=== PATIENT | male | born 1950 | race Caucasian/White ===

== ENCOUNTER 2020-09-17 09:32 | Outpatient (REF) | payer MEDICARE, SELFPAY ==
[2020-09-17 12:14] LABS: SARS COV2 PCR INHOUSE NEGATIVE (Negative)
== END 2020-09-17 09:33 | disposition home or self-care (01) ==
LOC: HO.LAB 09:32
PROVIDERS: Visit Provider Internal Medicine
DX: Z20.822 Contact with and (suspected) exposure to COVID-19 (principal)
CPT/HCPCS: C9803; U0003

== ENCOUNTER 2022-05-11 08:58 | Outpatient (REF) | payer MEDICARE, SELFPAY | END 2022-05-11 08:59 | disposition home or self-care (01) | LOC: HO.SH 08:58 | PROVIDERS: Visit Provider Physician Assistant | DX: Z01.118 Encounter for examination of ears and hearing with other abnormal findings (principal); H90.3 Sensorineural hearing loss, bilateral | CPT/HCPCS: 92557; 92567 ==

== ENCOUNTER 2022-06-03 17:48 | Emergency (ER) | payer MEDICARE, SELFPAY ==
--- NOTE | ~2022-06-03 | XR_ITS ---
EXAMINATION: XR BILATERAL HIPS WITH AP PELVIS CLINICAL INFORMATION: Pain COMPARISON: None TECHNIQUE: AP view of the pelvis with coned frontal and frog-leg lateral views of each hip were obtained. FINDINGS: Both femoral heads are well-seated within the respected acetabula. Degenerative changes are seen with mild osteophyte formation. I do not appreciate any cortical disruption or trabecular irregularity to suggest underlying occult fracture. Mild degenerative changes seen in the pelvis and visualized lower lumbar spine. Unremarkable bowel gas pattern. Vascular calcifications seen XR/XR hip BI w PEL1V IMPRESSION: Mild degenerative changes but no acute fracture or dislocation seen.
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
--- NOTE | 2022-06-03 17:54 | ECG_ITS ---
Test Reason : FALL Blood Pressure : / mmHG Vent. Rate : 080 BPM Atrial Rate : 080 BPM P-R Int : 164 ms QRS Dur : 082 ms QT Int : 392 ms P-R-T Axes : 047 018 032 degrees QTc Int : 452 ms Normal sinus rhythm Normal ECG No previous ECGs available Referred By: Lisa Waterman Electronically Signed By:AKIN VALDOVINOS
[2022-06-03 17:57] VITALS: BP 145/85; PULSE 82; RESP 16; TEMP 36.7; O2SAT 99; BMI 25.1
[2022-06-03 18:00] VITALS: BP 152/83; PULSE 79; RESP 18; TEMP 36.9; O2SAT 96
[2022-06-03 18:19] LABS: MANUAL DIFF FLAG NO
[2022-06-03 18:26] LABS: Basophils Percent Auto 0.5 % (0-2); Eosinophils Percent Auto 0.3 % (0-4); Hematocrit 40.7 % (42.0-52.0); Hemoglobin 14.1 g/dl (14.0-18.0); Imm Gran Abs Auto 0.07 X10*3/uL (0.00-0.03); Imm Gran Pct Auto 1.2 % (0.0-0.4); Lymphocytes Absolute Auto 0.9 X10*3/uL (1.2-4.9); Lymphocytes Percent Auto 14.3 % (20-40); Mean Corpuscular HGB Conc 34.6 g/dl (31.0-36.0); Mean Corpuscular Volume 86.6 fL (80.0-98.0); Mean Platelet Volume 10.1 fL (9.4-12.4); Monocytes Absolute Auto 0.9 X10*3/uL (0.1-1.2); Monocytes Percent Auto 14.7 % (2-11); Neutrophils Absolute Auto 4.1 x10*3/uL (2.0-8.3); Platelet Count 242 X10*3/uL (160-400); White Blood Count 5.9 X10*3/uL (4.8-10.8)
[2022-06-03 18:40] LABS: Alanine Aminotransferase 26 U/L (0-40); Albumin Level 4.5 g/dL (3.5-5.0); Alkaline Phosphatase 53 U/L (39-117); Anion Gap 14 (12-20); Aspartate Amino Transferase 21 U/L (5-37); Bilirubin Total 0.8 mg/dL (0.0-1.0); Blood Urea Nitrogen 13 mg/dL (9-16); Calcium 9.7 mg/dL (8.4-10.2); Carbon Dioxide 22 mmol/L (22-29); Chloride 103 mmol/L (96-108); Creatinine Clr Calc Pharmacy 73.3; Estimated Glomerular Filt Rate > 60; Glucose Random 99 mg/dL (60-115); Potassium 4.2 mmol/L (3.3-5.1); Sodium 135 mmol/L (135-145); Total Protein 6.8 g/dL (6.5-8.0)
[2022-06-03 19:18] LABS: Influenza A PCR POSITIVE (Negative); Influenza B PCR NEGATIVE (Negative); Resp Syncy Virus RNA Qual PCR NEGATIVE (Negative); SARS COV2 PCR INHOUSE NEGATIVE (Negative)
== END 2022-06-03 20:06 | disposition home or self-care (01) ==
PROVIDERS: Physician Assistant Medical; Emergency Provider Student in an Organized Health Care Education/Training Program
DX: J11.1 Influenza due to unidentified influenza virus with other respiratory manifestations (principal); R53.1 Weakness; R10.2 Pelvic and perineal pain; Z20.822 Contact with and (suspected) exposure to COVID-19
CPT/HCPCS: 0241U; 36415; 73521; 80053; 83735; 85025; 93005; 99283; 99284

== ENCOUNTER → 2022-07-19 14:25 | Outpatient (BNVA) | payer SELFPAY | PROVIDERS: Visit Provider Internal Medicine | DX: Z02.79 Encounter for issue of other medical certificate (principal) ==

== ENCOUNTER 2022-09-30 10:51 | Emergency (ER) | payer MEDICARE, SELFPAY ==
--- NOTE | ~2022-09-30 | XR_ITS ---
EXAMINATION: XR CHEST CLINICAL INFORMATION: Chest pain COMPARISON: None available. TECHNIQUE: 2 views of the chest were obtained. FINDINGS: The cardiac and mediastinal contours are normal. The lungs are clear. No pleural effusion or pneumothorax. Degenerative changes of the spine. Evidence of previous surgery to the right shoulder. XR/XR chest 2V IMPRESSION: No evidence for acute disease in the chest.
--- NOTE | 2022-09-30 10:55 | ECG_ITS ---
Test Reason : CP Blood Pressure : / mmHG Vent. Rate : 073 BPM Atrial Rate : 073 BPM P-R Int : 156 ms QRS Dur : 078 ms QT Int : 392 ms P-R-T Axes : 034 022 061 degrees QTc Int : 431 ms Normal sinus rhythm Normal ECG When compared with ECG of 03-JUN-2022 19:29, No significant change was found Referred By: Generic ED Physician Electronically Signed By:DAYA DUBOIS MD
[2022-09-30 10:57] VITALS: BP 102/73; PULSE 74; RESP 18; TEMP 36.6; O2SAT 94; BMI 32.1
[2022-09-30 11:19] LABS: MANUAL DIFF FLAG NO
[2022-09-30 11:22] LABS: Basophils Absolute Auto 0.1 X10*3/uL (0.0-0.2); Basophils Percent Auto 0.7 % (0-2); Eosinophils Absolute Auto 0.1 X10*3/uL (0.0-0.4); Eosinophils Percent Auto 0.6 % (0-4); Hematocrit 43.6 % (42.0-52.0); Imm Gran Abs Auto 0.04 X10*3/uL (0.00-0.03); Imm Gran Pct Auto 0.5 % (0.0-0.4); Lymphocytes Absolute Auto 1.8 X10*3/uL (1.2-4.9); Lymphocytes Percent Auto 20.8 % (20-40); Mean Corpuscular HGB Conc 34.4 g/dl (31.0-36.0); Mean Corpuscular Hemoglobin 28.8 pg (27.0-33.0); Mean Corpuscular Volume 83.7 fL (80.0-98.0); Monocytes Absolute Auto 0.7 X10*3/uL (0.1-1.2); Monocytes Percent Auto 7.8 % (2-11); Neutrophils Absolute Auto 6.2 x10*3/uL (2.0-8.3); Neutrophils Percent Auto 69.6 % (45-73); Platelet Count 271 X10*3/uL (160-400); Red Blood Count 5.21 X10*6/uL (4.60-5.80); Red Cell Distribution Width 13.4 % (11.0-16.0); White Blood Count 8.9 X10*3/uL (4.8-10.8)
[2022-09-30 11:36] LABS: Anion Gap 16 (12-20); Blood Urea Nitrogen 18 mg/dL (9-16); Calcium 9.7 mg/dL (8.4-10.2); Carbon Dioxide 19 mmol/L (22-29); Chloride 110 mmol/L (96-108); Estimated Glomerular Filt Rate 46; Glucose Random 95 mg/dL (60-115); Potassium 4.9 mmol/L (3.3-5.1); Sodium 140 mmol/L (135-145)
[2022-09-30 11:46] LABS: Troponin-I High Sensitivity 3.2 ng/L (<3.5-35.0)
[2022-09-30 14:37] VITALS: BP 159/86; PULSE 72; RESP 16; O2SAT 98
[2022-09-30 15:12] LABS: Troponin-I High Sensitivity 2.8 ng/L (<3.5-35.0)
--- NOTE | 2022-09-30 15:19 | ED.CHESTPAIN ---
HPI - Chest Pain General Chief Complaint: Chest Pain Stated Complaint: Chest Pain Time Seen by Provider: 09/30/22 14:53 History of Present Illness HPI narrative: patient complains of 5 days of several episodes a day of brief shortness of breath and chest pain while he is walking to do routine tasks, pain goes away and shortness of breath goes away when he stops walking and rests, he has no chest pain or shortness of breath at rest Episodes of chest pain usually last for less than a minute, he has never felt faint and he has not passed out he has had no nausea or vomiting, he did have 1 episode that was accompanied by diaphoresis but the other episodes have had no diaphoresis No abdominal pain no nausea or vomit No leg swelling no calf pain or swelling Medical history is hypertension and high cholesterol Related Data Allergies Allergy/AdvReac Type Severity Reaction Status Date / Time No Known Allergies Allergy Verified 06/03/22 17:54 [facility] Past Medical History [facility] Narrative: Patient has history of hypertension and high cholesterol Source: nursing notes reviewed Social History Social History Advance Directives: No Advance Directives Information Provided: No Physical Exam Vital Signs: Vital Signs: Last Vital Signs Temp 98.3 F 09/30/22 17:07 Pulse 65 09/30/22 17:07 Resp 20 09/30/22 17:07 BP 171/89 H 09/30/22 17:07 Pulse Ox 99 09/30/22 17:07 O2 Del Method Room Air 09/30/22 17:07 BMI result Body Mass Index 32.1 General appearance is no distress Head is normocephalic atraumatic Neck is supple no JVD The chest is clear to auscultation bilateral full symmetric equal breath sounds Chest wall is nontender, no pain with deep breath or movement Abdomen soft nontender Extremities full range of motion x4 No pedal edema no calf tenderness or swelling Neuro no focal deficits Course Course Course Narrative: EKG was normal sinus rhythm without acute ST or ischemic changes EKG was done twice, the 2nd time was when he had walked to the bathroom and experienced a brief episode of chest pain, EKG was unchanged and was in normal sinus rhythm without evidence of acute ischemia Monitoring oxygen saturation and pulse when he did a brief exertional walk showed mild increase of pulse from 70-80 but no drop in oxygen saturation no increased respiratory rate no difficulty breathing Case was discussed with attending physician Arianne who agreed with 2- troponins and 2 normal EKGs including 1 done while he was experiencing pain that patient can go home to follow closely with cardiology I texted with c ardiologist who responded that he could follow this patient closely and would see him in the office and patient was discharged with the hospital with warnings to return if he develops any worsening chest pain and to limit exertion until cardiac evaluation is complete Medical Decision Making Lab Data MDM Lab Attestation statement: I reviewed the patient's lab results. 09/30/22 11:14 09/30/22 11:14 Labs: Lab Results 09/30/22 09/30/22 09/30/22 Range/Units 11:14 11:14 11:14 WBC 8.9 (4.8-10.8) X10*3/uL RBC 5.21 (4.60-5.80) X10*6/uL Hgb 15.0 (14.0-18.0) g/dl Hct 43.6 (42.0-52.0) % MCV 83.7 (80.0-98.0) fL MCH 28.8 (27.0-33.0) pg MCHC 34.4 (31.0-36.0) g/dl RDW 13.4 (11.0-16.0) % Plt Count 271 (160-400) X10*3/uL MPV 10.0 (9.4-12.4) fL Immature Gran % (Auto) 0.5 H (0.0-0.4) % Neut % (Auto) 69.6 (45-73) % Lymph % (Auto) 20.8 (20-40) % [place] % (Auto) 7.8 (2-11) % Eos % (Auto) 0.6 (0-4) % Baso % (Auto) 0.7 (0-2) % Lymph # (Auto) 1.8 (1.2-4.9) X10*3/uL [place] # (Auto) 0.7 (0.1-1.2) X10*3/uL Eos # (Auto) 0.1 (0.0-0.4) X10*3/uL Baso # (Auto) 0.1 (0.0-0.2) X10*3/uL Abs Immat Gran (auto) 0.04 H (0.00-0.03) X10*3/uL Absolute Neuts (auto) 6.2 (2.0-8.3) x10*3/uL Absolute Nucleated RBC 0.000 (0.0-0.012) X10*3/uL Nucleated RBC % (auto) 0.0 (0.0-0.2) /100WBC Sodium 140 (135-145) mmol/L Potassium 4.9 (3.3-5.1) mmol/L Chloride 110 H (96-108) mmol/L Carbon Dioxide 19 L (22-29) mmol/L Anion Gap 16 (12-20) BUN 18 H (9-16) mg/dL Creatinine 1.49 H (0.5-1.4) mg/dL Estim Creat Clear Calc 55.0 Estimated GFR 46 Random Glucose 95 (60-115) mg/dL Calcium 9.7 (8.4-10.2) mg/dL Troponin I High Sens 3.2 (<3.5-35.0) ng/L COVID-19 ([facility]LIE) (Negative) COVID-19 Clin Com 09/30/22 09/30/22 Range/Units 14:41 17:08 WBC (4.8-10.8) X10*3/uL RBC (4.60-5.80) X10*6/uL Hgb (14.0-18.0) g/dl Hct (42.0-52.0) % MCV (80.0-98.0) fL MCH (27.0-33.0) pg MCHC (31.0-36.0) g/dl RDW (11.0-16.0) % Plt Count (160-400) X10*3/uL MPV (9.4-12.4) fL Immature Gran % (Auto) (0.0-0.4) % Neut % (Auto) (45-73) % Lymph % (Auto) (20-40) % [place] % (Auto) (2-11) % Eos % (Auto) (0-4) % Baso % (Auto) (0-2) % Lymph # (Auto) (1.2-4.9) X10*3/uL [place] # (Auto) (0.1-1.2) X10*3/uL Eos # (Auto) (0.0-0.4) X10*3/uL Baso # (Auto) (0.0-0.2) X10*3/uL Abs Immat Gran (auto) (0.00-0.03) X10*3/uL Absolute Neuts (auto) (2.0-8.3) x10*3/uL Absolute Nucleated RBC (0.0-0.012) X10*3/uL Nucleated RBC % (auto) (0.0-0.2) /100WBC Sodium (135-145) mmol/L Potassium (3.3-5.1) mmol/L Chloride (96-108) mmol/L Carbon Dioxide (22-29) mmol/L Anion Gap (12-20) BUN (9-16) mg/dL Creatinine (0.5-1.4) mg/dL Estim Creat Clear Calc Estimated GFR Random Glucose (60-115) mg/dL Calcium (8.4-10.2) mg/dL Troponin I High Sens 2.8 (<3.5-35.0) ng/L COVID-19 ([facility]LIE) Negative (Negative) COVID-19 Clin Com See Note Discharge Plan Discharge Clinical Impression: Chest pain Patient Disposition: Home, Self-Care Additional Instructions: our workup today did not show any evidence that you have had a heart attack But your symptoms of chest pain and shortness of breath with exertion are concerning so I contacted braille translator Dr. Costa, and he said his office will contact you for when to come into the office If you do not hear from them by Monday call the office, if you do call the office make sure you mention this was discussed with Dr. Costa Return immediately to the ER should you develop any worsening chest pain or shortness of breath or any worse condition or any concerns Referrals: Rebel Costa MD [Physician] - ( ER workup negative for heart attack but concerning for chest pain with exertion, f multiple episodes over past week) Interventions: ED Discharge Assessment Last Done: 09/30/22 18:47 Discharge Date/Time: 09/30/22 18:53
[2022-09-30 16:33] VITALS: O2SAT 97
--- NOTE | 2022-09-30 16:35 | ECG_ITS ---
Test Reason : CHEST PAIN Blood Pressure : / mmHG Vent. Rate : 070 BPM Atrial Rate : 070 BPM P-R Int : 170 ms QRS Dur : 080 ms QT Int : 412 ms P-R-T Axes : 034 029 049 degrees QTc Int : 444 ms Normal sinus rhythm Normal ECG When compared with ECG of 30-SEP-2022 11:03, No significant change was found Referred By: Nikos Kaye Electronically Signed By:DAYA DUBOIS MD
[2022-09-30 17:07] VITALS: BP 171/89; PULSE 65; RESP 20; TEMP 36.8; O2SAT 99
[2022-09-30 17:30] LABS: COVID-19 Test Negative (Negative); IDNOW Serial# 6674DD1D
== END 2022-09-30 18:53 | disposition home or self-care (01) ==
PROVIDERS: Physician Assistant Medical; Emergency Provider Emergency Medicine
DX: R07.9 Chest pain, unspecified (principal); I10 Essential (primary) hypertension; E78.5 Hyperlipidemia, unspecified; Z20.822 Contact with and (suspected) exposure to COVID-19
CPT/HCPCS: 36415; 71046; 80048; 84484; 85025; 87635; 93005; 99283; 99284

== ENCOUNTER → 2022-10-05 13:11 | Outpatient (BNVA) | payer MEDICARE, SELFPAY | PROVIDERS: PCP Physician Assistant Medical; Visit Provider Internal Medicine Cardiovascular Disease | DX: R07.9 Chest pain, unspecified (principal); I20.0 Unstable angina; I95.9 Hypotension, unspecified; E78.5 Hyperlipidemia, unspecified | CPT/HCPCS: 99202 ==

== ENCOUNTER → 2022-10-19 12:40 | Outpatient (REF) | payer MEDICARE, SELFPAY ==
--- NOTE | 2022-10-19 12:44 | CA_ITS ---
Transthoracic Echocardiogram Patient (Last, First, Middle): Chad Calixto J Gender: Male Date of : 1950 Age: 71 Procedure Date: 10/19/2022 Procedure Type: Transthoracic Echocardiogram Location: OP Height: 180.34 cm Weight: 104.33 kg BSA: 2.24 m2 Heart Rate: bpm BP: 86 / 58 mmHg Lead Front Desk Agent: TO Referring MD: Rebel Costa MD Coal Cutter: Rebel Costa MD Symptoms: R07.9 - Chest pain, unspecified Study Quality: Fair/Contrast ECG Rhythm: Sinus Conclusions: - 1. Hyperdynamic LV systolic function with LVEF of greater than 70% with mild LVH with impaired relaxation filling pattern 2. Normal cardiac valvular Doppler 3. Mildly dilated ascending aorta at 4.2 cm 4. Normal RV systolic pressure 5. No gross pericardial effusion Findings Procedure Information Contrast agent, definity, is being given per protocol without apparent complications. Left Ventricle Normal left ventricular cavity size. There is mildly increased left ventricular wall thickness. The left ventricular systolic function is hyperdynamic. The visually estimated ejection fraction is >70%. Spectral Doppler is indicative of an impaired relaxation filling pattern. E/E prime ratio is between 8 and 15 consistent with indeterminate filling pressures. Right Ventricle Normal right ventricular cavity size and systolic function. Atria The left atrium is likely dilated. There is no evidence of interatrial shunt. The right atrium is normal in size. Aortic Valve Normal aortic valve structure and function. There is no aortic valve stenosis. There is no aortic valve regurgitation. Mitral Valve There is mild anterior and posterior mitral leaflet thickening. There is trace mitral valve regurgitation. There is no mitral valve stenosis. Pulmonic Valve The pulmonic valve was not well visualized. Tricuspid Valve Normal tricuspid valve structure. There is trace tricuspid valve regurgitation. The right ventricular systolic pressure is normal. The right ventricular systolic pressure is 20 mmHg. Normal right atrial pressure. There is no evidence of pulmonary hypertension. Great Vessels The pulmonary artery was not well visualized. There is mild dilatation of the ascending aorta measuring 4.20 cm. Venous The inferior vena cava is normal in size and collapses greater than 50% with inspiration. Pericardium/Pleural There is no evidence of pericardial effusion. Prior Study Comparison No prior study available for comparison. Measurements 2D Linear Measurements IVSd: 1.32 0.6-0.9/0.6-1.0 cm LVIDd: 4.07 3.9-5.3/4.2-5.9 cm LVIDd Index: 1.82 2.4-3.2/2.2-3.1 cm/m2 LVIDs: 1.76 2.0-3.6 cm LVPWd: 1.13 0.7-1.1 cm LA Diam: 4.00 2.7-3.8/3.0-4.0 cm LAIDs Index: 1.79 1.5-2.3 cm/m2 LV Mass: 218.14 67-162/88-224 g LV Mass Index: 97.38 43-95/49-115 g/m2 LVOT Diam: 2.40 3.0+(-)1.3 cm 2D Systolic Function EF 4C: 73.10 >55% EF 2C: 73.50 >55% EF BiP: 72.80 >55% Mitral Valve MV Pk E: 0.62 MV PK A: 0.79 MV Decel Time: 385.00 E/A: 0.80 E'Lateral: 5.72 E'Medial: 5.66 E/E' Med: 11.00 E/E' Lat: 10.90 PHT: 113.00 MVA PHT: 1.95 Decel Dare: 1.61 Aortic Valve AoV Pk Taco: 1.19 AoV Mn Taco: 0.90 AoV VTI: 0.25 AoV Pk Grad: 6.00 Aov Mn Grad: 4.00 JOVANA Cont.VTI: 4.30 LVOT LVOT Pk Taco: 1.12 LVOT Mn Taco: 0.72 LVOT VTI: 0.24 LVOT Pk Grad: 5.00 LVOT Mn Grad: 2.00 LVOT Diam: 2.40 LVOT Area: 4.52 Diastolic Function MV Pk E: 0.62 MV Pk A: 0.79 E/A: 0.80 E'Medial: 5.66 E/E' Med: 11.00 E' Laterial: 5.72 E/E' Lat: 10.90 Right Ventricle TAPSE (mm): 21.70 TVS' Taco: 13.30 Tricuspid Valve TR Pk Taco: 2.05 TR Pk Grad: 17.00 RA Press: 3.00 RVSP: 20.00 Great Vessels Aorta Sinus of Valsalva: 4.22 2.0-3.5 cm Ao Asc: 4.20 2.1-3.4 cm Ao Arch: 3.90 Updated in Other Vendor System with Status of Final Rebel Costa MD electronically signed on 10/19/2022 4:53:48 PM with status of Final
== END ==
LOC: HO.CARD 12:40
PROVIDERS: PCP Physician Assistant Medical; Visit Provider Internal Medicine Cardiovascular Disease
DX: R07.9 Chest pain, unspecified (principal)
CPT/HCPCS: 93306; Q9957

== ENCOUNTER 2022-10-26 12:46 | Outpatient (REF) | payer MEDICARE, SELFPAY ==
--- NOTE | ~2022-10-26 | US_ITS ---
EXAMINATION: US EXTRACRANIAL CAROTID DUPLEX, BILATERAL CLINICAL INFORMATION: Carotid bruit COMPARISON: None available. TECHNIQUE: Real-time ultrasound and Doppler techniques (integrating B-mode 2-D vascular images, Doppler spectral analysis and color-flow Doppler imaging) were utilized to interrogate the extracranial carotid arteries, the vertebral arteries and proximal subclavian arteries bilaterally. The degree of stenosis is determined by criteria similar to NASCET. FINDINGS: Right Side: 1. There is mild atherosclerotic plaque seen in the bifurcation/proximal ICA region. 2. The common carotid artery PSV proximally is 68 cm/s and distally 56 cm/s. 3. The proximal internal carotid artery velocities are 47 cm/s systolic and 17 cm/s diastolic. 4. The proximal external carotid artery PSV is 80 cm/s. 5. The vertebral artery shows antegrade flow. 6. The subclavian artery waveforms are normal. Left Side: 1. There is mild atherosclerotic plaque seen in the bifurcation/proximal ICA region. 2. The common carotid artery PSV proximally is 129 cm/s and distally 63 cm/s. 3. The proximal internal carotid artery velocities are 62 cm/s systolic and 19 cm/s diastolic. 4. The proximal external carotid artery PSV is 90 cm/s. 5. The vertebral artery shows antegrade flow. 6. The subclavian artery waveforms are normal. US/US carotid duplex BI IMPRESSION: 1. RIGHT: Minimal, non-hemodynamically significant stenosis of the proximal right internal carotid artery corresponding to a 0-49% stenosis by velocity criteria. 2. LEFT: Minimal, non-hemodynamically significant stenosis of the proximal left internal carotid artery corresponding to a 0-49% stenosis by velocity criteria.
== END 2022-10-26 12:47 | disposition home or self-care (01) ==
LOC: HO.US 12:46
PROVIDERS: PCP Physician Assistant Medical; Visit Provider Thoracic Surgery (Cardiothoracic Vascular Surgery)
DX: R09.89 Other specified symptoms and signs involving the circulatory and respiratory systems (principal)
CPT/HCPCS: 93880

== ENCOUNTER → 2022-12-08 10:55 | Outpatient (REF) | payer MEDICARE, SELFPAY ==
--- NOTE | 2022-12-08 11:00 | CA_ITS ---
Transthoracic Echocardiogram Patient (Last, First, Middle): Chad Calixto J Gender: Male Date of : 1950 Age: 71 Procedure Date: 12/08/2022 Procedure Type: Transthoracic Echocardiogram Location: OP Height: 180.34 cm Weight: 86.18 kg BSA: 2.06 m2 Heart Rate: bpm BP: 112 / 64 mmHg Factory Maintenance Manager: OSMAR Referring MD: Rebel Costa MD Symptoms: I20.0 - Unstable angina Study Quality: Adequate with contrast ECG Rhythm: Sinus Conclusions: - The left ventricular systolic function is normal. The calculated ejection fraction is 67% by biplane method. - No obvious valvular pathology seen on this study. - There is mild dilatation of the sinuses of Valsalva measuring 4.25 cm and mild dilatation of the ascending aorta measuring 4.20 cm. Findings Left Ventricle Normal left ventricular cavity size. There is mildly increased left ventricular wall thickness. The left ventricular systolic function is normal. The calculated ejection fraction is 67% by biplane method. There is no evidence of regional wall motion abnormalities. Evidence suggests grade I (mild) diastolic dysfunction. Right Ventricle Normal right ventricular cavity size and systolic function. Atria The left atrium is mildly dilated. The right atrium is normal in size. Aortic Valve There is a normal trileaflet aortic valve. There is mild calcification of the aortic valve. There is no aortic valve stenosis. There is no aortic valve regurgitation. Mitral Valve The mitral valve appears normal. There is trace mitral valve regurgitation. There is no mitral valve stenosis. Pulmonic Valve There is mild pulmonic valve regurgitation. Tricuspid Valve There is trace tricuspid valve regurgitation. There is no evidence of pulmonary hypertension. Great Vessels There is mild dilatation of the sinuses of Valsalva measuring 4.25 cm and mild dilatation of the ascending aorta measuring 4.20 cm. Small plaque is seen in the sino tubular ridge. Venous The inferior vena cava is normal in size and collapses greater than 50% with inspiration. Pericardium/Pleural There is a trivial pericardial effusion. Prior Study Comparison No significant change compared to prior study dated: 10/19/2022. Recommendations, Care & Conclusions No obvious valvular pathology seen on this study. Measurements 2D Linear Measurements IVSd: 1.18 0.6-0.9/0.6-1.0 cm LVIDd: 4.26 3.9-5.3/4.2-5.9 cm LVIDd Index: 2.07 2.4-3.2/2.2-3.1 cm/m2 LVIDs: 2.79 2.0-3.6 cm LVPWd: 1.03 0.7-1.1 cm LA Diam: 3.80 2.7-3.8/3.0-4.0 cm LAIDs Index: 1.84 1.5-2.3 cm/m2 LV Mass: 201.27 67-162/88-224 g LV Mass Index: 97.71 43-95/49-115 g/m2 LVOT Diam: 2.00 3.0+(-)1.3 cm 2D Systolic Function EF 4C: 65.80 >55% EF 2C: 68.90 >55% EF BiP: 67.10 >55% Mitral Valve MV Pk E: 1.08 MV PK A: 0.89 MV Decel Time: 212.00 E/A: 1.20 E'Lateral: 7.94 E'Medial: 6.64 E/E' Med: 16.30 E/E' Lat: 13.60 PHT: 62.00 MVA PHT: 3.55 Decel Aiken: 5.07 Aortic Valve AoV Pk Taco: 1.26 AoV Mn Taco: 0.86 AoV VTI: 0.34 AoV Pk Grad: 6.00 Aov Mn Grad: 3.00 JOVANA Cont.VTI: 2.83 LVOT LVOT Pk Taco: 1.17 LVOT Mn Taco: 0.72 LVOT VTI: 0.30 LVOT Pk Grad: 5.00 LVOT Mn Grad: 2.00 LVOT Diam: 2.00 LVOT Area: 3.14 Diastolic Function MV Pk E: 1.08 MV Pk A: 0.89 E/A: 1.20 E'Medial: 6.64 E/E' Med: 16.30 E' Laterial: 7.94 E/E' Lat: 13.60 Right Ventricle TAPSE (mm): 18.80 TVS' Taco: 9.14 Tricuspid Valve TR Pk Taco: 1.95 TR Pk Grad: 15.00 RA Press: 3.00 RVSP: 18.00 Great Vessels Aorta Sinus of Valsalva: 4.25 2.0-3.[address] Ridge: 3.26 1.7-3.4 cm Ao Asc: 4.20 2.1-3.4 cm Ao Arch: 3.50 Updated in Other Vendor System with Status of Final Adriel Sarabia MD electronically signed on 12/10/2022 12:26:40 PM with status of Final
== END ==
LOC: HO.CARD 10:55
PROVIDERS: PCP Physician Assistant Medical; Visit Provider Internal Medicine Cardiovascular Disease
DX: I24.1 Dressler's syndrome (principal); Z95.1 Presence of aortocoronary bypass graft
CPT/HCPCS: 93306; Q9957

== ENCOUNTER → 2022-12-15 13:12 | Outpatient (BNVA) | payer MEDICARE, SELFPAY | PROVIDERS: PCP Physician Assistant Medical; Referring Provider Physician Assistant Medical; Visit Provider Internal Medicine Cardiovascular Disease | DX: I25.10 Atherosclerotic heart disease of native coronary artery without angina pectoris (principal); I99.8 Other disorder of circulatory system | CPT/HCPCS: 99212 ==

== ENCOUNTER 2023-01-18 07:37 | Outpatient (REF) | payer MEDICARE, SELFPAY ==
[2023-01-18 08:37] LABS: Cholesterol 103 mg/dL; HDL Cholesterol 36 mg/dL; LDL Cholesterol Calculated 46 mg/dl; Triglycerides 105 mg/dL
== END 2023-01-18 07:38 | disposition home or self-care (01) ==
LOC: HO.LAB 07:37
PROVIDERS: Visit Provider Internal Medicine Cardiovascular Disease
DX: I25.10 Atherosclerotic heart disease of native coronary artery without angina pectoris (principal)
CPT/HCPCS: 36415; 80061

== ENCOUNTER 2023-02-02 15:11 | Outpatient (AMB) | payer MEDICARE, SELFPAY ==
[2023-01-24 08:35] VITALS: BP 108/60; BP 94/58; BMI 30.4
[2023-02-02 15:13] VITALS: BP 130/60; PULSE 63; BMI 30.4
--- NOTE | 2023-02-02 15:13 | MHC.OFFVIS ---
Intake Vital Signs 02/02/23 15:13 Height 5 ft 11 in Weight 218 lb 4.122 oz BMI 30.4 BP 130/60 Blood Pressure Location Lt brachial Position Sitting Pulse 63 Pulse Source Pulse Oximeter Intake Visit Reasons: 6 wk s/p lipids/ us/ Intake Note: 6 wk/s/p/lipids/us Pin Game Machine Inspector Required: No Allergies No Known Allergies Allergy (Verified 02/02/23 15:19) Medication List - Last Reconciled 02/02/23 by Rebel Costa MD aspirin (Ecotrin Low Strength) 81 mg PO DAILY 90 days atorvastatin 80 mg PO DAILY docusate sodium 100 mg PO DAILY folic acid 1 mg PO DAILY metoprolol succinate ER 25 mg PO DAILY tamsulosin (Flomax) 0.4 mg PO DAILY vitamin B complex (B Complex-Vitamin B12 tablet) 1 tab PO DAILY HPI HPI Comments History of Present Illness Details Chad comes for follow-up. He denies any anginal symptoms. Currently participating in cardiac rehab. Continues to have pain in his left hand. Has been evaluated by vascular surgery and they feel that there is no issue with circulation to his left hand. Takes all his medications. Last LDL of 46 mg/dL. Denies any heart failure symptoms. Denies any lightheadedness, syncope. [facility] Medical History (Updated 02/02/23 @ 15:32 by Rebel Costa MD) CAD (coronary artery disease) Crescendo angina HTN (hypertension) Ischemia of digits of hand Surgical History Hx of shoulder surgery S/P CABG x 5 Family History Father Cancer Mother Cancer Brother CAD (coronary artery disease) Social History Patient Tobacco Use Status: Former Tobacco user Quit Date: 1993 Tobacco use type: Cigarette and Cigar Cigarette Packs Per Day: 1.5 Years Smoked: 30 Review of Systems ENT Reports dizziness Card Denies chest pain, Denies chest pain at rest, Denies chest pain with activity, Denies rapid heart rate, Denies pedal edema, Denies edema, Denies leg edema, Denies lightheadedness, Denies palpitations, Denies dyspnea, Denies dyspnea on exertion and Denies orthopnea Resp Denies cough, Denies dyspnea and Denies dyspnea on exertion GI Denies hematochezia and Denies change in stool character Musc Denies abnormal gait, Reports limited range of motion, Reports muscle cramps, Denies muscle weakness, Denies numbness, Denies radiating pain into limb, Denies stiffness and Denies tingling Neuro Denies Abnormal speech present, Denies abnormal gait, Reports dizziness, Denies numbness and Denies tingling Endo Denies palpitations Physical Exam Vital Signs: Last Vital Signs Pulse 63 02/02/23 15:13 BP 130/60 02/02/23 15:13 BMI result Body Mass Index 30.4 Const General: cooperative, comfortable, no acute distress, well developed, alert and awake Nutritional Appearance: obese Orientation/consciousness: patient oriented x3 Limitations: no limitations Neck Neck: Yes trachea midline, Yes supple and Yes no JVD Resp Effort & Inspection: normal respiratory effort Auscultation: clear to auscultation bilaterally Cardio Jugular venous distension: no JVD Palpation: normal PMI Rate: regular rate Rhythm: regular rhythm Heart sounds: S1 normal heart sound present, S2 normal heart sound present, no click, no gallops, no murmurs and no rubs GI Auscultation: normal bowel sounds Skin General skin exam: no rashes or lesions noted Neuro General: patient oriented x3 and no focal motor deficits Speech: No Abnormal speech present Extrem General: Yes no clubbing, cyanosis or edema Left upper extremity: hand Details: vascular exam Details: abnormal capillary refill and other (Pallor on elevation) Psych Appearance: grossly normal Assessment & Plan Assessment & Plan (1) CAD (coronary artery disease): Code(s): I25.10 - Atherosclerotic heart disease of [place] coronary artery without angina pectoris Plan: CAD status post five-vessel coronary artery bypass grafting for exertional angina. This has not resolved. Continue aggressive medical therapy. Lifelong aspirin therapy is advised. Continue high-intensity statin therapy with well optimized LDL at current time. Continue metoprolol therapy. Advised to maintain activity level as tolerated and finished cardiac rehabilitation program. Advised to call me with any anginal symptoms. (2) HTN (hypertension): Code(s): I10 - Essential (primary) hypertension Plan: Hypertension which is currently well optimized advised to monitor blood pressure at home maintain a log. Goal blood pressure less than 130/84. Low-salt diet was advised. Continue participate in regular physical activity. Will follow up in the clinic in 6 months time, sooner p.r.n.. Thank you for allowing me to partake in his care Coding Level of Care Code Est Pt Level 4 (50043) Diagnoses CAD (coronary artery disease) I25.10 HTN (hypertension) I10
== END 2023-02-02 16:00 | disposition home or self-care (01) ==
PROVIDERS: PCP Physician Assistant Medical; Referring Provider Physician Assistant Medical; Visit Provider Internal Medicine Cardiovascular Disease
DX: I25.10 Atherosclerotic heart disease of native coronary artery without angina pectoris (principal); I10 Essential (primary) hypertension
CPT/HCPCS: 99214

== ENCOUNTER → 2023-02-02 15:11 | Outpatient (BNVA) | payer MEDICARE, SELFPAY ==
[2023-01-24 08:35] VITALS: BP 108/60; BP 94/58; BMI 30.4
== END ==
PROVIDERS: PCP Physician Assistant Medical; Referring Provider Physician Assistant Medical; Visit Provider Internal Medicine Cardiovascular Disease
DX: I25.10 Atherosclerotic heart disease of native coronary artery without angina pectoris (principal); I10 Essential (primary) hypertension
CPT/HCPCS: 99212

== ENCOUNTER 2023-05-29 10:00 | Outpatient (RCR) | payer MEDICARE, SELFPAY ==
[2023-01-24 08:35] VITALS: BP 108/60; BP 94/58; BMI 30.4
--- NOTE | 2023-01-24 11:39 | MHC.CR.ITI ---
[address] [phone] F: [phone] Please see additional notes from [facility] Initial Assessment/ITP Cardiac Rehab Initial Assessment/ITP Start: 01/24/23 08:22 Freq: Status: Active Protocol: Activity Type Activity Date Activity User E-sign Co-sign Detail Recorded Client Recorded Date Recorded By Document 01/24/23 08:35 SOPHIA [id number] 01/24/23 08:40 SOPHIA 01/24/23 08:35 Cardiac Rehab ITP Initial [Excercise] -Molecular Biology Director Required No -Preferred Language Albanian -Number of sessions approved 36 -Diagnosis CABG Z95.1 -Other Diagnosis CABGX5 (10/31/22 )CAD, HTN, HLD, HS OF ETOH, HX OF ANGINA, RSHOULDER SURG. -Comments NO LONGER HAVING ANGINAL SYMPTOMS. Operative course complicated by alcohol withdrawal. He quit and has not gone back to drinking. [facility] and then home with [facility], which was completed in November. mentions he is still weak. He naps daily. [Functional Assessment] -6 Min Walk (distance in ft) 675 -Stress Test (Mode) WALK -METS Achieved 1.98 -Resting HR 64 -Resting BP 94/58 -Resting SpO2 97 -Exercise HR 75 -Exercise BP 108/60 -Exercise SpO2 97 -RPE 13 -Dyspnea No -ECG Summary SR W. SOME PAC' S -Comments HAS POOR FOOT CLEARANCE WITH DISTANCE AND GAIT. NEEDS CUES TO CLEAR TOES. LEGS GET TIRED QUICKLY. HE LEANS FORWARD. HE EXPRESSES HE FEELS LIKE HE GETS LEANING FORWARD AND HIS GAIT GETS FASTER. [Pre Rehab] -Pre Rehab Home Exercise No -Comments He was instructed by nurse to take it easy so he hasn't been doing much. -Risk Stratification: Low Risk Uncomplicated Participants [place]; CABG; angioplasty; atherectomy,No resting or exercise induced myocardial ischemia manifest as angina,No significant left ventricular dysfunction (EF > = 30%) -Assistive Devices Cane,Walker -Comments has a walker and cane but has graduated from using them with PT [Exercise Plan] [Intervention] -Exercise Prescription NuStep, Recumbent Bike, Recumbent Elliptical, Rower,Treadmill ,UBE,Upright Bike,Weights -Duration Intensity 36 Sessions -Frequency 2-3x/week -Angina with Exercise No [Exercise Education] -Exercise Education Exercise orientation, Exercise safety ,Home exercise, RPE,Self pulse checking,Signs and symptoms, Warmup/cooldown -Date Completed 01/24/23 -Initials CSP -Education Summary DISCUSSED GOALS OF EX. WILL TEACH SELF PULSE OR USE OF PULSE OXIMETER TO CAL HR IN COMING SESSIONS. [Exercise Goals] -Exercise Most Days of the Week Yes -Exercise 30-45 mins/day Yes -Target HR Range +20 - +30 beats above resting -Target RPE range 11-13 -Increase METS next 30 days 0.5-1.0 METS Every two weeks -METs goal by Discharge 4 METS -Comments TAUGHT RPE SCALE [Nutrition] [Hyperlipidemia] -Hyperlipidemia Yes -Are lab results available Yes -Lipid Draw Date 01/18/23 -Total Cholesterol 103 -LDL 46 -HDL 36 -Tryglycerides 105 [Diabetes] -Diabetes No -Are lab results available Yes -Fasting Glucose 95 -Date 09/30/22 -Monitors Glucose No [Weight Management] -Height 71 ft -Weight 99 kg -BMI 30.4 -Recommended Diet DASH ( LOW NA, LOW CHOLOESTROL , LOW FAT) [Drug/Alchohol Use] -Drug/Alcohol Use No: QUIT BEFORE SURGERY ( 1 MONTH) -Type BEER -Amount 12/DAY [Nutritional Screen (Rate Your Plate)] -Score 67 -Interpretation of Score MAKES GOOD CHOICES ALREADY -Comments JOE DOES MOST COOKING. [Nutrition Plan] [Intervention] -Referral(s) Nutrition Brochures [Nutrition Education] -Nutrition Education Hydration, Nutrition, Reading food labels -Date Completed 01/24/23 -Initials CSP [Nutrition Goals] -Goals BMI < 25, Fasting BG 80- 120 mg/dL,HDL > 40,LDL < 70, Total CHOL < 200 -Weight goal 175 [Psycho/Social] -Stage of Change Action -Learning Barriers Hearing -Occupation Retired -Job Description [employer] GR[employer]ING -PHQ9 Score 7 -Interpretation of Score RELATED TO FATIGUE AND TIREDNESS. -Plan of Action/Follow-up HE WILL CONTINUE TO DICUSS WITH PROVIDER. IS GOOD ADVOCATE FOR HIM. -Patient Self-Reports Depression No: FATIGUED -Family Support Lives with spouse/others -Comments LIVES WITH ONLY HIS SPOUSE. HAS 1 SPOILED DOG AT HOME A BORDER COLLIE. (BONNY DREW) HAS CHICKENS AT HOME WELL. [Psycho/Social Plan] [Intervention] -Referral(s) No consult needed [Psycho/Social Education] -Psycho/Social Education Advanced directives, Coping techniques, Depression and CAD,Positive support system, Relaxation Techniques, Reviewed PHQ9 Score w/pt, Sexuality and CAD,Signs and symptoms of CAD ,Stress management -Date Completed 01/24/23 -Initials CSP -Education Summary AND PT UNDERSTAND THE IMPORTANCE OF PSYCHO/SOCIAL STATE ON HEART. REVIEWED PHQ9 SCORE. IT IS MOSTLY RELATED TO FATIGUE AND DECONDITIONING AND SURGERY. WATCHES TV FOR RELAXATION AND LIKES TO PUTT AROUND [Psycho/Social Goals] -Goals Manage/reduce stress,Not Applicable -Comments A LITTLE STRESSED HE ISN 'T WORKING. HE LIKES TO KEEP BUSY [Other Core Comp] [Risk Factors] -Risk Factors Dyslipidemia, Hypertension, Physical Inactivity, Tobacco Use -Comments: FATHER AND MOTHER BOTH OF CANCER [Hypertension] -Hypertention Yes -Resting BP: 94/58 [Tobacco Use] -Patient Tobacco Use Status Former Tobacco user -Tobacco use type Cigarette,Cigar -Smoking packs per day 1.5 -Years smoked 30 -Patient Interested in Nicotine No Replacement -Smoking Quit Date 1993 -Exposure to secondhand smoke No -Comments NO DESIRE TO SMOKE ANY LONGER. [Heart Failure] -Heart Failure No -EF% 65 -Dyspnea at Rest No -Dyspnea with Exercise Yes -Last Hospitalization OCTOBER 2022 CABG X5 -Comments COMPLICATED COURSE DUE TO ETOH WITHDRAWAL , SUB ACUTE REHAB STAY AND HOME CARE SERVICES. [Other Core Comp Plan] [Intervention] -Referral(s) HF Diet Consult ,HF Support Group, Hypertension Consult, Physical Therapy for Fall Risk, Recognizing Stressors,Self Monitoring BP, Stress Management, Tobacco Brochure, Tobacco Intervention Consult,Patient Refused Consults,Not Applicable [Other Core Comp Education] -Other Core Comp Education HF Disease progression, Medication compliance,Risk factor modifications, RPD Scale/SOB management, Smoking and CAD ,Tobacco triggers, Understanding hypertension, Not Applicable -Date Completed 01/24/23 -Initials CSP -Education Summary TODAY AND ONGOING. TODAY DISCUSSED SMOKING AND THAT HE DOESN'T HAVE AN URGE TO SMOKE ANYMORE. DISCUSSED HYPERTENSION. DISCUSSED MODIFIABLE RISK FACTORS AND HOW TO IMPROVE HEART HEALTH. [Other Core Comp Goals] -Goals Improve dyspnea ,Manage risk factors,Manage signs and symptoms of CHF ,Medication compliance, Resting BP < 130/80,Tobacco cessation,Not Applicable [Medication Plan] [Intervention] -Medications ASA 81 MG DAILY ATORVASTATIN 80 MG DAILY DOCUSATE SODIUM 100 MG DAILY FOLIC ACID 1 MG DAILY METOPROLOL SUCCINATE ER 25 MG DAILY VIT B COMPLEX DAILY -Compliance Patient reports compliance w/ prescribed meds [Medication Education] -Education Importance of medication compliance, Medication purpose, Medication schedule, Medication side effects -Date Completed 01/24/23 -Initials CSP -Education Summary TAKES RESPONSIBILITY FOR MED COMPLIANCE DUE TO PT'S STM ISSUES [Medication Goals] -Goals Adherence to medication compliance [Treatment Times] -Rehab Services with ECG Monitor -Time 1300 -End Time 1430 -Visit Duration 90
[2023-02-21 11:12] VITALS: BP 108/60; BP 94/58; BMI 30.4
[2023-02-21 11:14] VITALS: BP 100/58; BMI 30.4
--- NOTE | 2023-02-21 11:27 | MHC.CR.ITR ---
[address] [phone] F: [phone] Please see additional notes from [facility] Cardiac Rehab Reassessment/ITP Cardiac Rehab Reassessment/ITP Start: 01/24/23 08:22 Freq: Status: Active Protocol: Activity Type Activity Date Activity User E-sign Co-sign Detail Recorded Client Recorded Date Recorded By Document 02/21/23 11:14 NEAL [id number] 02/21/23 11:27 NEAL 02/21/23 11:14 Cardiac Rehab Reassessment/ITP [Exercise] -Prekindergarten Teacher Required No -Preferred Language Telugu -Progress Note Type 30-Day Note -Comments NO LONGER HAVING ANGINAL SYMPTOMS. Operative course complicated by alcohol withdrawal. He quit and has not gone back to drinking. He [facility] and then home with [facility], which was completed in November. mentions he is still weak. He naps daily. [Functional Assessment] -ECG Summary SR -Home-Based Rehab Pt approved for home-based exercise [Exercise Plan] [Intervention] -Exercise Prescription NuStep, Recumbent Bike, Recumbent Elliptical, Rower,Treadmill ,UBE,Upright Bike,Weights -Duration Intensity 36 Sessions -Exercise Minutes/Day 55 -Exercise Days/Week 3 -Angina with Exercise No -Peak METs 2.9 [Home Exercise] -Comments 02/21/23-Mail Carrier to review. It has been limited at this time [Exercise Education] -Exercise Education Exercise orientation, Exercise safety ,Home exercise, RPE,Self pulse checking,Signs and symptoms, Warmup/cooldown -Date Completed 01/24/23 -Initials CSP -Education Summary DISCUSSED GOALS OF EX. WILL TEACH SELF PULSE OR USE OF PULSE OXIMETER TO CAL HR IN COMING SESSIONS. 02/21/23-Class on RPE, Pulse taking, warm up /cool down this week [Exercise Goals] -Exercise Most Days of the Week Yes -Exercise 30-45 mins/day Yes -Target HR Range +20 - +30 beats above resting -Target RPE range 11-13 -Increase METS next 30 days 0.5-1.0 METS Every two weeks -METs goal by Discharge 4 METS -Comments TAUGHT RPE SCALE. 02/21/23-MAX METS 2.9. Will continue to progress according to RPE,THR. Chad has been increasing his exercise time [Nutrition] [Hyperlipidemia] -Are lab results available Yes -Hyperlipidemia Yes -Medication Changes No -Comments 02/21/23-Heart Healthy Diet, AHA discussed. AHA recipes were given. [Diabetes] -Diabetes No -Fasting Glucose 95 -Date 09/30/22 [Weight Management] -Weight 99 kg -BMI 30.4 -Comments 02/21/23- 99.3KG [Drug/Alchohol Use] -Drug/Alcohol Use No: QUIT BEFORE SURGERY ( 1 MONTH) -Change in Use No [Nutrition Plan] [Intervention] -Attended Nutrition Brochures [Nutrition Education] -Nutrition Education Hydration, Nutrition, Reading food labels -Date Completed 01/24/23 -Initials CSP -Education Summary 02/21/23-As above , heart healthy diet, AHA discussed. AHA recipes given. [Nutrition Goals] -Goals BMI < 25, Fasting BG 80- 120 mg/dL,HDL > 40,LDL < 70, Total CHOL < 200 -Weight goal 175 [Psycho/Social] -Stage of Change Action -Occupation Retired -PHQ9 Score 7 -Interpretation of Score RELATED TO FATIGUE AND TIREDNESS. -Plan of Action/Follow-up HE WILL CONTINUE TO DICUSS WITH PROVIDER. IS GOOD ADVOCATE FOR HIM. -Patient Self-Reports Depression No: FATIGUED [Psycho/Social Plan] [Intervention] -Attended No consult needed [Psycho/Social Education] -Psycho/Social Education Advanced directives, Coping techniques, Depression and CAD,Positive support system, Relaxation Techniques, Reviewed PHQ9 Score w/pt, Sexuality and CAD,Signs and symptoms of CAD ,Stress management -Date Completed 01/24/23 -Initials CSP -Education Summary AND PT UNDERSTAND THE IMPORTANCE OF PSYCHO/SOCIAL STATE ON HEART. REVIEWED PHQ9 SCORE. IT IS MOSTLY RELATED TO FATIGUE AND DECONDITIONING AND SURGERY. WATCHES TV FOR RELAXATION AND LIKES TO PUTT AROUND [Psycho/Social Goals] -Goals Manage/reduce stress,Not Applicable -Comments A LITTLE STRESSED HE ISN 'T WORKING. HE LIKES TO KEEP BUSY [Other Core Comp] [Hypertension] -Hypertention Yes -Resting BP: 100/58 -Medication Changes No -Comments Patient/spouse monitor BP at home. BP can run on the lower side-86/ 48. He is asymptomatic at Cardiac Rehab and at home. They expressed that they will discuss with MD . [Tobacco Use] -Comments NO DESIRE TO SMOKE ANY LONGER. [Heart Failure] -Heart Failure No -Dyspnea at Rest No -Dyspnea with Exercise Yes -Comments COMPLICATED COURSE DUE TO ETOH WITHDRAWAL , SUB ACUTE REHAB STAY AND HOME CARE SERVICES. [Other Core Comp Plan] [Intervention] -Attended HF Diet Consult ,HF Support Group, Hypertension Consult, Physical Therapy for Fall Risk, Recognizing Stressors,Self Monitoring BP, Stress Management, Tobacco Brochure, Tobacco Intervention Consult,Patient Refused Consults,Not Applicable [Other Core Comp Education] -Other Core Comp Education HF Disease progression, Medication compliance,Risk factor modifications, RPD Scale/SOB management, Smoking and CAD ,Tobacco triggers, Understanding hypertension, Not Applicable -Date Completed 01/24/23 -Initials CSP -Education Summary TODAY AND ONGOING. TODAY DISCUSSED SMOKING AND THAT HE DOESN'T HAVE AN URGE TO SMOKE ANYMORE. DISCUSSED HYPERTENSION. DISCUSSED MODIFIABLE RISK FACTORS AND HOW TO IMPROVE HEART HEALTH. 02/21/23-Warm Up/ Cool Down, Pulse taking to be discussed this week. RPE reviewed during each class; worlloads explained. [Other Core Comp Goals] -Goals Improve dyspnea ,Manage risk factors,Manage signs and symptoms of CHF ,Medication compliance, Resting BP < 130/80,Tobacco cessation,Not Applicable [Medication Plan] [Intervention] -Medications ASA 81 MG DAILY ATORVASTATIN 80 MG DAILY DOCUSATE SODIUM 100 MG DAILY FOLIC ACID 1 MG DAILY METOPROLOL SUCCINATE ER 25 MG DAILY VIT B COMPLEX DAILY -Compliance Patient reports compliance w/ prescribed meds [Medication Education] -Education Importance of medication compliance, Medication purpose, Medication schedule, Medication side effects -Date Completed 01/24/23 -Initials CSP -Education Summary TAKES RESPONSIBILITY FOR MED COMPLIANCE DUE TO PT'S STM ISSUES. 02/21/23-As above , spouse is involved with care and is supportive. [Medication Goals] -Goals Adherence to medication compliance
[2023-03-20 16:17] VITALS: BP 102/50; BMI 30.4
--- NOTE | 2023-03-20 16:23 | MHC.CR.ITR ---
[address] [phone] F: [phone] Please see additional notes from [facility] Reassessment/ITP Cardiac Rehab Reassessment/ITP Start: 01/24/23 08:22 Freq: Status: Active Protocol: Activity Type Activity Date Activity User E-sign Co-sign Detail Recorded Client Recorded Date Recorded By Document 03/20/23 16:17 SOPHIA Desktop 03/20/23 16:23 SOPHIA 03/20/23 16:17 Cardiac Rehab Reassessment/ITP [Exercise] -Pulmonologist Required No -Preferred Language Pashto -Progress Note Type 30-Day Note -Total Sessions Attended 16 -Comments NO LONGER HAVING ANGINAL SYMPTOMS. Operative course complicated by alcohol withdrawal. He quit and has not gone back to drinking. [facility] and then home with [facility], which was completed in November. mentions he is still weak. He naps daily. 60 Day Reassessment: Making progress in CR with max met of 2.5 achieved. BP remaining on lower side. Rhythm is SB/SR and he has participated in several education al modules [Functional Assessment] -ECG Summary SR/SB -Home-Based Rehab Pt approved for home-based exercise -Comments may walk on non -cardiac rehab days -Fall Risk No [Exercise Plan] [Intervention] -Exercise Prescription NuStep, Recumbent Bike, Recumbent Elliptical, Rower,Treadmill ,UBE,Upright Bike,Weights -Duration Intensity 36 Sessions -Exercise Minutes/Day 55 -Exercise Days/Week 3 -Angina with Exercise No -Peak METs 2.9 [Home Exercise] -Comments 02/21/23-Superintendent Meters to review. It has been limited at this time 03/17/2023 education on HEP and Ex safety (modules ) [Exercise Education] -Exercise Education Exercise orientation, Exercise safety ,Home exercise, RPE,Self pulse checking,Signs and symptoms, Warmup/cooldown -Date Completed 01/24/23 -Initials CSP -Education Summary DISCUSSED GOALS OF EX. WILL TEACH SELF PULSE OR USE OF PULSE OXIMETER TO CAL HR IN COMING SESSIONS. 02/21/23-Class on RPE, Pulse taking, warm up /cool down this week [Exercise Goals] -Exercise Most Days of the Week Yes -Exercise 30-45 mins/day Yes -Target HR Range +20 - +30 beats above resting -Target RPE range 11-13 -Increase METS next 30 days 0.5-1.0 METS Every two weeks -METs goal by Discharge 4 METS -Comments TAUGHT RPE SCALE. 02/21/23-MAX METS 2.9. Will continue to progress according to RPE,THR. Chad has been increasing his exercise time [Nutrition] [Hyperlipidemia] -Are lab results available Yes -Hyperlipidemia Yes -Medication Changes No -Comments 02/21/23-Heart Healthy Diet, AHA discussed. AHA recipes were given. 03/03/2023 Education modules on Sodium intake and Nutrition as well as Hydration. Discussed [employer] education as well. [Diabetes] -Diabetes No -Fasting Glucose 95 -Date 09/30/22 [Weight Management] -Weight 99 kg -BMI 30.4 -Comments 02/21/23- 99.3KG [Drug/Alchohol Use] -Drug/Alcohol Use No: QUIT BEFORE SURGERY ( 1 MONTH) -Change in Use No [Nutrition Plan] [Intervention] -Attended Nutrition Brochures [Nutrition Education] -Nutrition Education Hydration, Nutrition, Reading food labels -Date Completed 01/24/23 -Initials CSP -Education Summary 02/21/23-As above , heart healthy diet, AHA discussed. AHA recipes given. [Nutrition Goals] -Goals BMI < 25, Fasting BG 80- 120 mg/dL,HDL > 40,LDL < 70, Total CHOL < 200 -Weight goal 175 [Psycho/Social] -Stage of Change Action -Occupation Retired -PHQ9 Score 7 -Interpretation of Score RELATED TO FATIGUE AND TIREDNESS. -Plan of Action/Follow-up HE WILL CONTINUE TO DICUSS WITH PROVIDER. IS GOOD ADVOCATE FOR HIM. -Patient Self-Reports Depression No: FATIGUED [Psycho/Social Plan] [Intervention] -Attended No consult needed [Psycho/Social Education] -Psycho/Social Education Advanced directives, Coping techniques, Depression and CAD,Positive support system, Relaxation Techniques, Reviewed PHQ9 Score w/pt, Sexuality and CAD,Signs and symptoms of CAD ,Stress management -Date Completed 01/24/23 -Initials CSP -Education Summary AND PT UNDERSTAND THE IMPORTANCE OF PSYCHO/SOCIAL STATE ON HEART. REVIEWED PHQ9 SCORE. IT IS MOSTLY RELATED TO FATIGUE AND DECONDITIONING AND SURGERY. WATCHES TV FOR RELAXATION AND LIKES TO PUTT AROUND [Psycho/Social Goals] -Goals Manage/reduce stress,Not Applicable -Comments A LITTLE STRESSED HE ISN 'T WORKING. HE LIKES TO KEEP BUSY Education on Positive support system and relaxation. [Other Core Comp] [Hypertension] -Hypertention Yes -Resting BP: 102/50 -Medication Changes No -Comments Patient/spouse monitor BP at home. BP can run on the lower side-86/ 48. He is asymptomatic at Cardiac Rehab and at home. They expressed that they will discuss with MD . [Tobacco Use] -Comments NO DESIRE TO SMOKE ANY LONGER. [Heart Failure] -Heart Failure No -Dyspnea at Rest No -Dyspnea with Exercise Yes -Comments COMPLICATED COURSE DUE TO ETOH WITHDRAWAL , SUB ACUTE REHAB STAY AND HOME CARE SERVICES. [Other Core Comp Plan] [Intervention] -Attended HF Diet Consult ,HF Support Group, Hypertension Consult, Physical Therapy for Fall Risk, Recognizing Stressors,Self Monitoring BP, Stress Management, Tobacco Brochure, Tobacco Intervention Consult,Patient Refused Consults,Not Applicable [Other Core Comp Education] -Other Core Comp Education HF Disease progression, Medication compliance,Risk factor modifications, RPD Scale/SOB management, Smoking and CAD ,Tobacco triggers, Understanding hypertension, Not Applicable -Date Completed 01/24/23 -Initials CSP -Education Summary TODAY AND ONGOING. TODAY DISCUSSED SMOKING AND THAT HE DOESN'T HAVE AN URGE TO SMOKE ANYMORE. DISCUSSED HYPERTENSION. DISCUSSED MODIFIABLE RISK FACTORS AND HOW TO IMPROVE HEART HEALTH. 02/21/23-Warm Up/ Cool Down, Pulse taking to be discussed this week. RPE reviewed during each class; worlloads explained. [Other Core Comp Goals] -Goals Improve dyspnea ,Manage risk factors,Manage signs and symptoms of CHF ,Medication compliance, Resting BP < 130/80,Tobacco cessation,Not Applicable [Medication Plan] [Intervention] -Medications ASA 81 MG DAILY ATORVASTATIN 80 MG DAILY DOCUSATE SODIUM 100 MG DAILY FOLIC ACID 1 MG DAILY METOPROLOL SUCCINATE ER 25 MG DAILY VIT B COMPLEX DAILY -Compliance Patient reports compliance w/ prescribed meds [Medication Education] -Education Importance of medication compliance, Medication purpose, Medication schedule, Medication side effects -Date Completed 01/24/23 -Initials CSP -Education Summary TAKES RESPONSIBILITY FOR MED COMPLIANCE DUE TO PT'S STM ISSUES. 02/21/23-As above , spouse is involved with care and is supportive. [Medication Goals] -Goals Adherence to medication compliance -Comments Continues to report compliance with medications
[2023-05-08 16:17] VITALS: BP 102/50; BMI 30.4
--- NOTE | 2023-05-08 16:48 | MHC.CR.ITR ---
[address] [phone] F: [phone] Please see additional notes from [facility] Reass[facility]/ITP Cardiac Rehab Reassessment/ITP Start: 01/24/23 08:22 Freq: Status: Active Protocol: Activity Type Activity Date Activity User E-sign Co-sign Detail Recorded Client Recorded Date Recorded By Document 05/08/23 16:17 NEAL Desktop 05/08/23 16:48 NADayron 05/08/23 16:17 Cardiac Rehab Reassessment/ITP [Exercise] -Recreation Instructor Required No -Preferred Language Greenlandic -Progress Note Type 90-Day Note -Total Sessions Attended 30 -Comments NO LONGER HAVING ANGINAL SYMPTOMS. Operative course complicated by alcohol withdrawal. He quit and has not gone back to drinking. [facility] and then home with [facility], which was completed in November. mentions he is still weak. He naps daily. 60 Day Reassessment: Making progress in CR with max met of 2.5 achieved. BP remaining on lower side. Rhythm is SB/SR and he has participated in several education al modules [Functional Assessment] -ECG Summary SR/SB -Home-Based Rehab Pt approved for home-based exercise -Comments may walk on non -cardiac rehab days 05/08/23-He does work around the house, and assists with spouses care( recent CA diagnosis). Expresses he does not have time for other activities. -Fall Risk No [Exercise Plan] [Intervention] -Exercise Prescription NuStep, Recumbent Bike, Recumbent Elliptical, Rower,Treadmill ,UBE,Upright Bike,Weights -Duration Intensity 36 Sessions -Exercise Minutes/Day 55 -Exercise Days/Week 3 -Angina with Exercise No -Peak METs 5.7 [Home Exercise] -Comments 02/21/23-Audiovisual Tech to review. It has been limited at this time 03/17/2023 education on HEP and Ex safety (modules ) 05/08/23-As above under home based exercise [Exercise Education] -Exercise Education Exercise orientation, Exercise safety ,Home exercise, RPE,Self pulse checking,Signs and symptoms, Warmup/cooldown -Date Completed 01/24/23 -Initials CSP -Education Summary DISCUSSED GOALS OF EX. WILL TEACH SELF PULSE OR USE OF PULSE OXIMETER TO CAL HR IN COMING SESSIONS. 02/21/23-Class on RPE, Pulse taking, warm up /cool down this week 05/08/23-States understanding of exercise guidelines and adjusts exercise level according to RPE(Arthritic discomfort, fatigue). He has been tolerating, without CV symptoms, an increase intensity. He requested an increase intensity due to the heavy work he does at home. [Exercise Goals] -Exercise Most Days of the Week Yes -Exercise 30-45 mins/day Yes -Target HR Range +20 - +30 beats above resting -Target RPE range 11-13 -Increase METS next 30 days 0.5-1.0 METS Every two weeks -METs goal by Discharge 6 METS -Comments TAUGHT RPE SCALE. 02/21/23-MAX METS 2.9. Will continue to progress according to RPE,THR. Chad has been increasing his exercise time. 05/08/23-Max Mets has been 5 .7 [Nutrition] [Hyperlipidemia] -Are lab results available Yes -Hyperlipidemia Yes -Medication Changes No -Comments 02/21/23-Heart Healthy Diet, AHA discussed. AHA recipes were given. 03/03/2023 Education modules on Sodium intake and Nutrition as well as Hydration. Discussed [employer] education as well. 05/08/23-He does not like to cook. has been undergoing Chemotherapy. He has not been drinking alcohol which had been an issue in the past. [Diabetes] -Diabetes No -Fasting Glucose 95 -Date 09/30/22 [Weight Management] -Weight 99 kg -BMI 30.4 -Comments 02/21/23- 99.3KG 05/08/23-Weight is 99.7KG [Drug/Alchohol Use] -Drug/Alcohol Use No: QUIT BEFORE SURGERY ( 1 MONTH) -Change in Use No [Nutrition Plan] [Intervention] -Attended Nutrition Brochures [Nutrition Education] -Nutrition Education Hydration, Nutrition, Reading food labels -Date Completed 01/24/23 -Initials CSP -Education Summary 02/21/23-As above , heart healthy diet, AHA discussed. AHA recipes given. 05/08/23-Has written information. Nutrition will continue to be reinforced. Hydration is discussed at each session. [Nutrition Goals] -Goals BMI < 25, Fasting BG 80- 120 mg/dL,HDL > 40,LDL < 70, Total CHOL < 200 -Weight goal 175 [Psycho/Social] -Stage of Change Action -Occupation Retired -PHQ9 Score 7 -Interpretation of Score RELATED TO FATIGUE AND TIREDNESS. -Plan of Action/Follow-up HE WILL CONTINUE TO DICUSS WITH PROVIDER. IS GOOD ADVOCATE FOR HIM. -Patient Self-Reports Depression No: FATIGUED -Comments 05/08/23-Chad expresses stress due to illness and family matters. He expresses that he makes a decision and sticks with it. He was encouraged to work with case mangers/staff available to him and through Cancer program. [Psycho/Social Plan] [Intervention] -Attended No consult needed [Psycho/Social Education] -Psycho/Social Education Advanced directives, Coping techniques, Depression and CAD,Positive support system, Relaxation Techniques, Reviewed PHQ9 Score w/pt, Sexuality and CAD,Signs and symptoms of CAD ,Stress management -Date Completed 01/24/23 -Initials CSP -Education Summary AND PT UNDERSTAND THE IMPORTANCE OF PSYCHO/SOCIAL STATE ON HEART. REVIEWED PHQ9 SCORE. IT IS MOSTLY RELATED TO FATIGUE AND DECONDITIONING AND SURGERY. WATCHES TV FOR RELAXATION AND LIKES TO PUTT AROUND 05/08/23-Chad states he has HCP,MOLST, Living Will/ financial issues in order . 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 He has had recent family issues with daughter due to wifes illness, future planning. [Psycho/Social Goals] -Goals Manage/reduce stress,Not Applicable -Comments A LITTLE STRESSED HE ISN 'T WORKING. HE LIKES TO KEEP BUSY Education on Positive support system and relaxation. 05/08/23-Chad has participated in coping, stress reduction class but usually jokes when asked what he does for relaxation. He is an advocate for his , and has been assisting with her care. [Other Core Comp] [Hypertension] -Hypertention Yes -Resting BP: 102/50 -Medication Changes No -Comments Patient/spouse monitor BP at home. BP can run on the lower side-86/ 48. He is asymptomatic at Cardiac Rehab and at home. They expressed that they will discuss with MD . 05/08/23-Last BP 98/68 at rest. States he is asymptomatic. Fluids encouraged. MD is aware of BP' s. [Tobacco Use] -Comments NO DESIRE TO SMOKE ANY LONGER. [Heart Failure] -Heart Failure No -Dyspnea at Rest No -Dyspnea with Exercise Yes -Comments COMPLICATED COURSE DUE TO ETOH WITHDRAWAL , SUB ACUTE REHAB STAY AND HOME CARE SERVICES. 05/08/23-No recent Dyspnea at rest or with exercise. [Other Core Comp Plan] [Intervention] -Attended HF Diet Consult ,HF Support Group, Hypertension Consult, Physical Therapy for Fall Risk, Recognizing Stressors,Self Monitoring BP, Stress Management [Other Core Comp Education] -Other Core Comp Education HF Disease progression, Medication compliance,Risk factor modifications, RPD Scale/SOB management, Smoking and CAD ,Tobacco triggers, Understanding hypertension -Date Completed 01/24/23 -Initials CSP -Education Summary TODAY AND ONGOING. TODAY DISCUSSED SMOKING AND THAT HE DOESN'T HAVE AN URGE TO SMOKE ANYMORE. DISCUSSED HYPERTENSION. DISCUSSED MODIFIABLE RISK FACTORS AND HOW TO IMPROVE HEART HEALTH. 02/21/23-Warm Up/ Cool Down, Pulse taking to be discussed this week. RPE reviewed during each class; workloads explained. 05/08/23-Chad and had been monitoring BP at home and discussed with MD. Patient is asymptomatic with BP's on the lower side. [Other Core Comp Goals] -Goals Improve dyspnea ,Manage risk factors,Manage signs and symptoms of CHF ,Medication compliance, Resting BP < 130/80,Tobacco cessation -Comments 05/08/23-Takes meds as prescribes. No S/S of CHF. BP WNL States understanding of risk factors . No recent dyspnea. Plan: Reinforce risk modification, assess for home needs. [Medication Plan] [Intervention] -Medications ASA 81 MG DAILY ATORVASTATIN 80 MG DAILY DOCUSATE SODIUM 100 MG DAILY FOLIC ACID 1 MG DAILY METOPROLOL SUCCINATE ER 25 MG DAILY VIT B COMPLEX DAILY -Compliance Patient reports compliance w/ prescribed meds [Medication Education] -Education Importance of medication compliance, Medication purpose, Medication schedule, Medication side effects -Date Completed 01/24/23 -Initials CSP -Education Summary TAKES RESPONSIBILITY FOR MED COMPLIANCE DUE TO PT'S STM ISSUES. 02/21/23-As above , spouse is involved with care and is supportive. 05/08/23-As above. Will continue to monitor for any changes [Medication Goals] -Goals Adherence to medication compliance -Comments Continues to report compliance with medications 05/08/23-As above. Will continue to monitor for any issues with medications due to illness. Stated was having a good day today . Next Chemo .
[2023-05-24 09:59] VITALS: BP 102/50; BMI 30.4
[2023-06-05 15:07] VITALS: BP 106/50; BP 94/52; BMI 30.4
--- NOTE | 2023-06-05 15:22 | MHC.CR.ITD ---
[address] [phone] F: [phone] Please see additional notes from [facility] Has completed 36 sessions of CR. Cardiac Rehab Discharge/ITP Cardiac Rehab Discharge/ITP Start: 01/24/23 08:22 Freq: Status: Active Protocol: Activity Type Activity Date Activity User E-sign Co-sign Detail Recorded Client Recorded Date Recorded By Document 06/05/23 15:07 SOPHIA Desktop 06/05/23 15:22 SOPHIA 06/05/23 15:07 Cardiac Rehab Discharge/ITP [Exercise] -Lymphedema Therapist Required No -Preferred Language Maltese -Total Sessions Attended 36 -Comments NO LONGER HAVING ANGINAL SYMPTOMS. Operative course complicated by alcohol withdrawal. He quit and has not gone back to drinking. He [facility] and then home with [facility], which was completed in November. mentions he is still weak. He naps daily. 60 Day Reassessment: Making progress in CR with max met of 2.5 achieved. BP remaining on lower side. Rhythm is SB/SR and he has participated in several education al modules Discharge: Patient has completed 36 visits of CR. He has achieved a max met of 5. He has participated in various educational classes in session: Sodium intake, Nutritional labels and nutrition on , Relaxation and Positive support system on 03/10/23, HEP and Ex Safety on 03/17, Medication Compliance on ,, Risk Factor Modification and Understandign Hypertension on 05/19/23. [Functional Assessment] -6 Min Walk (distance in ft) 925 -Stress Test (Mode) WALK -METS Achieved 2.34 -Resting HR 70 -Resting BP 94/52 -Resting SpO2 97 -Exercise HR 79 -Exercise BP 106/50 -Exercise SpO2 98 -RPE 11 -Dyspnea 0 -ECG Summary SR/SB Improved distance of walk by 250 ft and with lower RPE. 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 It has been limited at this time 03/17/2023 education on HEP and Ex safety (modules ) 05/08/23-As above under home based exercise Discharge: Plans to work around his property and walk to his mailbox daily. 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 [Exercise Education] -Exercise Education Exercise orientation, Exercise safety ,Home exercise, RPE,Self pulse checking,Signs and symptoms, Warmup/cooldown -Date Completed 01/24/23 -Initials CSP -Education Summary DISCUSSED GOALS OF EX. WILL TEACH SELF PULSE OR USE OF PULSE OXIMETER TO CAL HR IN COMING SESSIONS. 02/21/23-Class on RPE, Pulse taking, warm up /cool down this week 05/08/23-States understanding of exercise guidelines and adjusts exercise level according to RPE(Arthritic discomfort, fatigue). He has been tolerating, without CV symptoms, an increase intensity. He requested an increase intensity due to the heavy work he does at home. [Exercise Goals] -Exercise Most Days of the Week Yes -Exercise 30-45 mins/day Yes -Target HR Range +20 - +30 beats above resting -Target RPE range 11-13 -Increase METS next 30 days 0.5-1.0 METS Every two weeks -METs goal by Discharge 6 METS -Comments TAUGHT RPE SCALE. 02/21/23-MAX METS 2.9. Will continue to progress according to RPE,THR. Chad has been increasing his exercise time. 05/08/23-Max Mets has been 5 .7 Dsicharge. Nearly Met 6 mets. [Nutrition] [Hyperlipidemia] -Are lab results available Yes -Hyperlipidemia Yes -Lipid Draw Date 01/18/23 -Total Cholesterol 103 -LDL 46 -HDL 36 -Tryglycerides 105 -Comments 02/21/23-Heart Healthy Diet, AHA discussed. AHA recipes were given. 03/03/2023 Education modules on Sodium intake and Nutrition as well as Hydration. Discussed [employer] education as well. 05/08/23-He does not like to cook. has been undergoing Chemotherapy. He has not been drinking alcohol which had been an issue in the past. Discharge: No new meds available [Diabetes] -Diabetes No -Fasting Glucose 95 -Date 09/30/22 [Weight Management] -Weight 99 kg -BMI 30.4 -Comments 02/21/23- 99.3KG 05/08/23-Weight is 99.7KG No change at discharge [Drug/Alchohol Use] -Drug/Alcohol Use No: QUIT BEFORE SURGERY ( 1 MONTH) -Change in Use No [Nutrition Plan] [Intervention] -Attended Nutrition Brochures [Nutrition Education] -Nutrition Education Hydration, Nutrition, Reading food labels -Date Completed 01/24/23 -Initials CSP -Education Summary 02/21/23-As above , heart healthy diet, AHA discussed. AHA recipes given. 05/08/23-Has written information. Nutrition will continue to be reinforced. Hydration is discussed at each session. Rate my Plate 64 Still making Healthy Choices. His typically does all shopping and cooking. [Nutrition Goals] -Goals BMI < 25, Fasting BG 80- 120 mg/dL,HDL > 40,LDL < 70, Total CHOL < 200 -Weight goal 175 [Psycho/Social] -Stage of Change Action -Occupation Retired -PHQ9 Score 3 -Interpretation of Score RELATED TO FATIGUE AND TIREDNESS. -Plan of Action/Follow-up HE WILL CONTINUE TO DICUSS WITH PROVIDER. IS GOOD ADVOCATE FOR HIM. -Patient Self-Reports Depression No: FATIGUED -Comments 05/08/23-Chad expresses stress due to illness and family matters. He expresses that he makes a decision and sticks with it. He was encouraged to work with case mangers/staff available to him and through Cancer program. PHQ9 down to 3 at Discharge from 7 on Admission. He does express frustration with his , he health issues . -Medication Changes No [Psycho/Social Plan] [Intervention] -Attended No consult needed [Psycho/Social Education] -Psycho/Social Education Advanced directives, Coping techniques, Depression and CAD,Positive support system, Relaxation Techniques, Reviewed PHQ9 Score w/pt, Sexuality and CAD,Signs and symptoms of CAD ,Stress management -Date Completed 01/24/23 -Initials CSP -Education Summary AND PT UNDERSTAND THE IMPORTANCE OF PSYCHO/SOCIAL STATE ON HEART. REVIEWED PHQ9 SCORE. IT IS MOSTLY RELATED TO FATIGUE AND DECONDITIONING AND SURGERY. WATCHES TV FOR RELAXATION AND LIKES TO PUTT AROUND 05/08/23-Chad states he has HCP,MOLST, Living Will/ financial issues in order . 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 He has had recent family issues with daughter due to wifes illness, future planning. [Psycho/Social Goals] -Goals Manage/reduce stress,Not Applicable -Comments A LITTLE STRESSED HE ISN 'T WORKING. HE LIKES TO KEEP BUSY Education on Positive support system and relaxation. 05/08/23-Chad has participated in coping, stress reduction class but usually jokes when asked what he does for relaxation. He is an advocate for his , and has been assisting with her care. [Other Core Comp] [Hypertension] -Hypertention Yes -Resting BP: 94/52 -Medication Changes No -Comments Patient/spouse monitor BP at home. BP can run on the lower side-86/ 48. He is asymptomatic at Cardiac Rehab and at home. They expressed that they will discuss with MD . 05/08/23-Last BP 98/68 at rest. States he is asymptomatic. Fluids encouraged. MD is aware of BP' s. BP's continue to run on lower side. He is asymptomatic. [Tobacco Use] -Comments NO DESIRE TO SMOKE ANY LONGER. [Heart Failure] -Dyspnea at Rest No -Dyspnea with Exercise Yes -Comments COMPLICATED COURSE DUE TO ETOH WITHDRAWAL , SUB ACUTE REHAB STAY AND HOME CARE SERVICES. 05/08/23-No recent Dyspnea at rest or with exercise. [Other Core Comp Plan] [Intervention] -Attended HF Diet Consult ,HF Support Group, Hypertension Consult, Physical Therapy for Fall Risk, Recognizing Stressors,Self Monitoring BP, Stress Management [Other Core Comp Education] -Other Core Comp Education HF Disease progression, Medication compliance,Risk factor modifications, RPD Scale/SOB management, Smoking and CAD ,Tobacco triggers, Understanding hypertension -Date Completed 01/24/23 -Initials CSP -Education Summary TODAY AND ONGOING. TODAY DISCUSSED SMOKING AND THAT HE DOESN'T HAVE AN URGE TO SMOKE ANYMORE. DISCUSSED HYPERTENSION. DISCUSSED MODIFIABLE RISK FACTORS AND HOW TO IMPROVE HEART HEALTH. 02/21/23-Warm Up/ Cool Down, Pulse taking to be discussed this week. RPE reviewed during each class; workloads explained. 05/08/23-Chad and had been monitoring BP at home and discussed with MD. Patient is asymptomatic with BP's on the lower side. [Other Core Comp Goals] -Goals Improve dyspnea ,Manage risk factors,Manage signs and symptoms of CHF ,Medication compliance, Resting BP < 130/80,Tobacco cessation -Comments 05/08/23-Takes meds as prescribes. No S/S of CHF. BP WNL States understanding of risk factors . No recent dyspnea. Plan: Reinforce risk modification, assess for home needs. [Medication Plan] [Intervention] -Medications ASA 81 MG DAILY ATORVASTATIN 80 MG DAILY DOCUSATE SODIUM 100 MG DAILY FOLIC ACID 1 MG DAILY METOPROLOL SUCCINATE ER 25 MG DAILY VIT B COMPLEX DAILY -Compliance Patient reports compliance w/ prescribed meds [Medication Education] -Education Importance of medication compliance, Medication purpose, Medication schedule, Medication side effects -Date Completed 01/24/23 -Initials CSP -Education Summary TAKES RESPONSIBILITY FOR MED COMPLIANCE DUE TO PT'S STM ISSUES. 02/21/23-As above , spouse is involved with care and is supportive. 05/08/23-As above. Will continue to monitor for any changes [Medication Goals] -Goals Adherence to medication compliance -Comments Continues to report compliance with medications 05/08/23-As above. Will continue to monitor for any issues with medications due to illness. Stated was having a good day today . Next Chemo . Continues with excellent med compliance.
== END 2023-06-06 07:26 | disposition home or self-care (01) ==
LOC: HO.CR 10:00
PROVIDERS: PCP Physician Assistant Medical; Visit Provider Internal Medicine Cardiovascular Disease
DX: I25.10 Atherosclerotic heart disease of native coronary artery without angina pectoris (principal); Z95.1 Presence of aortocoronary bypass graft
CPT/HCPCS: 93798

== ENCOUNTER 2023-08-03 10:57 | Outpatient (AMB) | payer MEDICARE, SELFPAY ==
[2023-01-24 08:35] VITALS: BP 108/60; BP 94/58; BMI 30.4
--- NOTE | 2023-08-03 11:03 | MHC.OFFVIS ---
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 He denies any anginal symptoms. After working on heavy stuff in the garage he did have transient pain in the upper sternal area which was reproducible. [facility] Medical History (Updated 02/02/23 @ 15:32 by Rebel Costa MD) Ischemia of digits of hand CAD (coronary artery disease) Crescendo angina HTN (hypertension) Surgical History S/P CABG x 5 Hx of shoulder surgery Family History Father Cancer Mother Cancer Brother CAD (coronary artery disease) Social History Patient Tobacco Use Status: Former Tobacco user Quit Date: 1993 Tobacco use type: Cigarette and Cigar Cigarette Packs Per Day: 1.5 Years Smoked: 30 Review of Systems Const Denies chills, Denies fatigue, Denies fever(s), Denies frequent falls, Denies weakness, Denies weight gain and Denies weight loss ENT Denies dizziness Card Denies chest pain, Denies leg edema, Denies lightheadedness, Denies palpitations, Denies dyspnea, Denies dyspnea on exertion, Denies orthopnea and Denies other (loss of consciousness) Resp Denies cough, Denies dyspnea and Denies dyspnea on exertion GI Denies hematochezia and Denies change in stool character Musc Denies abnormal gait, Denies muscle weakness, Denies numbness, Denies radiating pain into limb and Denies tingling Neuro Denies Abnormal speech present, Denies abnormal gait, Denies dizziness, Denies frequent falls, Denies numbness, Denies tingling and Denies weakness Endo Denies fatigue and Denies palpitations Physical Exam Vital Signs: Last Vital Signs Pulse 63 08/03/23 11:04 BP 114/62 08/03/23 11:04 BMI result Body Mass Index 30.7 Const General: cooperative, comfortable, no acute distress, well developed, alert and awake Nutritional Appearance: obese Orientation/consciousness: patient oriented x3 Limitations: no limitations Neck Neck: Yes trachea midline, Yes supple and Yes no JVD Resp Effort & Inspection: normal respiratory effort Auscultation: clear to auscultation bilaterally Cardio Jugular venous distension: no JVD Palpation: normal PMI Rate: regular rate Rhythm: regular rhythm Heart sounds: S1 normal heart sound present, S2 normal heart sound present, no click, no gallops, no murmurs and no rubs GI Auscultation: normal bowel sounds Skin General skin exam: no rashes or lesions noted Neuro General: patient oriented x3 and no focal motor deficits Speech: No Abnormal speech present Extrem General: Yes no clubbing, cyanosis or edema Left upper extremity: hand Details: vascular exam Details: abnormal capillary refill and other (Pallor on elevation) Psych Appearance: grossly normal Office Procedures EKG Details: EKG shows normal sinus rhythm with incomplete right bundle-branch block at 63 beats per minute [id number], Complete Assessment & Plan Assessment & Plan (1) CAD (coronary artery disease): Code(s): I25.10 - Atherosclerotic heart disease of [place] coronary artery without angina pectoris Plan: CAD status post coronary artery bypass grafting with resolved symptoms of angina. He is currently doing well. However he sometimes misses his medications. Importance of compliance with medications for long-term success of graft patency as well as avoiding cardiovascular events was discussed with him. Continue lifelong aspirin therapy. Continue high-intensity statin therapy. Advised lipid panel in 6 months time. Target goal LDL closer to 60 mg/dL. Blood pressure is well optimized. Encouraged to continue to participate in physical activity as tolerated. Advised to call me with any anginal symptoms. Will follow up in the clinic in 1 year's time, sooner p.r.n.. Thank you for allowing me to partake in his care Orders: Orders Lipid Panel 6 Months I25.10 - Atherosclerotic heart disease of [place] coronary artery without angina pectoris Coding Level of Care Code Est Pt Level 4 (53991) Diagnoses CAD (coronary artery disease) I25.10 CPT Codes EKG - CPT: 86044-[id number], Complete ([id number])
[2023-08-03 11:04] VITALS: BP 114/62; PULSE 63; BMI 30.7
== END 2023-08-03 11:29 | disposition home or self-care (01) ==
PROVIDERS: PCP Physician Assistant Medical; Visit Provider Internal Medicine Cardiovascular Disease
DX: I25.10 Atherosclerotic heart disease of native coronary artery without angina pectoris (principal)
CPT/HCPCS: 93010; 99214

== ENCOUNTER → 2023-08-03 10:57 | Outpatient (BNVA) | payer MEDICARE, SELFPAY | PROVIDERS: PCP Physician Assistant Medical; Visit Provider Internal Medicine Cardiovascular Disease | DX: I25.10 Atherosclerotic heart disease of native coronary artery without angina pectoris (principal) | CPT/HCPCS: 93005; 99212 ==

== ENCOUNTER 2024-02-01 08:22 | Outpatient (REF) | payer MEDICARE, SELFPAY ==
[2024-02-01 09:50] LABS: Cholesterol 120 mg/dL (<200); HDL Cholesterol 36 mg/dL (>40); LDL Cholesterol Calculated 53 mg/dL (<100); Triglycerides 156 mg/dL (<150)
== END 2024-02-01 08:23 | disposition home or self-care (01) ==
LOC: HO.LAB 08:22
PROVIDERS: PCP Physician Assistant Medical; Visit Provider Internal Medicine Cardiovascular Disease
DX: I25.10 Atherosclerotic heart disease of native coronary artery without angina pectoris (principal)
CPT/HCPCS: 36415; 80061

== ENCOUNTER → 2024-05-22 08:29 | Outpatient (BNVA) | payer SELFPAY | PROVIDERS: PCP Physician Assistant Medical; Visit Provider Internal Medicine | DX: Z02.79 Encounter for issue of other medical certificate (principal) ==

== ENCOUNTER → 2024-06-03 07:57 | Outpatient (REF) | payer MEDICARE, SELFPAY ==
--- NOTE | ~2024-06-03 | NM_ITS ---
Lexiscan Myocardial perfusion study Indication: Coronary artery disease Technique: The patient was brought in for a Lexiscan perfusion study on 06/03/2024 and was injected 0.4 mg of Lexiscan intravenously. Within a minute of this injection 30 mCi of sestamibi was given intravenously. Images were obtained using the SPECT gamma camera interlaced with the gating device. Images were obtained in supine position. Resting perfusion study was performed on 06/04/2024. Patient was administered 30 mCi of sestamibi intravenously at rest. Images were then obtained in supine position. Total DLP 82 mGy-cm. Images were processed with the software and compared side to side in short axis, horizontal long axis and vertical long axis views. Findings: Raw aquisition reviewed. The stress perfusion study showed demonstrates diminished tracer uptake along the inferior wall. There is improvement with CT attenuation correction suggestive of diaphragmatic attenuation artifact. The gated study shows normal LV systolic function with calculated LVEF of > 70%. LV cavity is normal in size. The gated study shows normal wall thickening and contraction of segments. Resting study shows diminished tracer uptake along the inferior wall. There is improvement with CT attenuation correction suggestive of diaphragmatic attenuation artifact. Gating at rest reveals normal wall motion with ejection fraction at 59%. The findings are consistent with fixed inferior perfusion defect. No clear reversible defects. NM/NM cardiolite stress test Impression: 1. Myocardial perfusion imaging study shows probably normal myocardial perfusion. 2. Gated LVEF is > 70% during stress and 59% during rest. 3. Transient ischemic dilatation not present. EKG component of the test reported separately. Electronically signed by: Adriel Sarabia MD 06/04/2024 02:49 PM [facility]
--- NOTE | 2024-06-03 08:18 | CA_ITS ---
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 Nondiagnostic EKG for ischemia. In recovery, lightheadedness improved. Nuclear images pending. Test reviewed with Dr. Sarabia. Note: Test originally ordered as exercise nuclear stress test and pt reports he is not able to use a treadmill and went off the back last time he tried one. Test changed to a pharmacological nuclear stress test for pts safety. Referred By: Rebel Costa Overread By: CASSIDY SPENCER
== END ==
LOC: HO.CARD 07:57
PROVIDERS: PCP Physician Assistant Medical; Visit Provider Internal Medicine Cardiovascular Disease
DX: I25.10 Atherosclerotic heart disease of native coronary artery without angina pectoris (principal); I10 Essential (primary) hypertension
CPT/HCPCS: 78452; 93017; A9500; J0280; J2785

== ENCOUNTER → 2024-06-03 08:18 | Outpatient (BNV) | payer MEDICARE, SELFPAY | PROVIDERS: PCP Physician Assistant Medical; Visit Provider Nurse Practitioner Family | DX: I49.1 Atrial premature depolarization (principal) | CPT/HCPCS: 78452; 93016; 93018 ==

== ENCOUNTER 2024-08-08 10:32 | Outpatient (AMB) | payer MEDICARE, SELFPAY ==
--- NOTE | 2024-08-08 10:35 | MHC.OFFVIS ---
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 He has been doing very well from cardiac perspective. He denied any symptoms exertional chest pain or shortness of breath. Denies any orthopnea, PND, leg edema. No lightheadedness, syncope. Takes all his medications. Last LDL in January was 53. He had a creatinine last year which was elevated at 1.49. Does not see a kidney specialist. Denies any orthopnea, PND, leg edema. Continues to work currently but does not exercise on a regular basis. [facility] Medical History Ischemia of digits of hand CAD (coronary artery disease) Crescendo angina HTN (hypertension) Surgical History S/P CABG x 5 Hx of shoulder surgery Family History Father Cancer Mother Cancer Brother CAD (coronary artery disease) Social History Alcohol intake: never Patient Tobacco Use Status: Former Tobacco user Tobacco use type: Cigarette and Cigar Cigarette Packs Per Day: 1.5 Years Smoked: 30 Review of Systems Const Denies chills, Denies fatigue, Denies fever(s), Denies weight gain and Denies weight loss ENT Denies dizziness Card Denies chest pain, Denies leg edema, Denies lightheadedness, Denies palpitations, Denies dyspnea on exertion, Denies orthopnea and Denies other Resp Denies cough and Denies dyspnea on exertion GI Denies hematochezia and Denies change in stool character Musc Denies abnormal gait, Denies muscle weakness, Denies numbness, Denies radiating pain into limb and Denies tingling Neuro Denies Abnormal speech present, Denies abnormal gait, Denies dizziness, Denies numbness and Denies tingling Endo Denies fatigue and Denies palpitations Physical Exam Vital Signs: Last Vital Signs Pulse 63 08/08/24 10:36 BP 128/64 08/08/24 10:36 BMI result Body Mass Index 31.7 Const General: cooperative, comfortable, no acute distress, well developed, alert and awake Nutritional Appearance: obese Orientation/consciousness: patient oriented x3 Limitations: no limitations Neck Neck: Yes trachea midline, Yes supple and Yes no JVD Resp Effort & Inspection: normal respiratory effort Auscultation: clear to auscultation bilaterally Cardio Jugular venous distension: no JVD Palpation: normal PMI Rate: regular rate Rhythm: regular rhythm Heart sounds: S1 normal heart sound present, S2 normal heart sound present, no click, no gallops, no murmurs and no rubs GI Auscultation: normal bowel sounds Skin General skin exam: no rashes or lesions noted Neuro General: patient oriented x3 and no focal motor deficits Speech: No Abnormal speech present Extrem General: Yes no clubbing, cyanosis or edema Left upper extremity: hand Details: vascular exam Details: abnormal capillary refill and other (Pallor on elevation) Psych Appearance: grossly normal Office Procedures EKG Details: EKG shows normal sinus rhythm with right bundle-branch block with possible inferior infarct with small Q-waves in inferior leads. [id number], Complete Assessment & Plan Assessment & Plan (1) CAD (coronary artery disease): Code(s): I25.10 - Atherosclerotic heart disease of [place] coronary artery without angina pectoris Category: Medical Plan: Stable coronary artery disease in this elderly gentleman status post multivessel coronary artery bypass grafting few years ago. No symptoms of angina. Continue lifelong aspirin therapy. Importance of compliance with medication was discussed. Continue high-intensity statin therapy. Will follow-up lipid panel in near future. Recommend regular physical activity. Recommend to participate in in exercise program. He understands. He is trying to incorporate that. Continue aggressive blood pressure control. (2) HTN (hypertension): Code(s): I10 - Essential (primary) hypertension Category: Medical Plan: Hypertension which is currently well optimized on low-dose metoprolol therapy will recheck renal function. Continues to have elevated creatinine refer him to Nephrology for further evaluation for chronic kidney disease. Continue aggressive vascular risk factor modification. Low-salt diet was discussed. Advised to monitor blood pressure and maintain a log. Goal blood pressure less than 130/84. Will follow up in the clinic in 1 year's time, sooner p.r.n.. Thank you for allowing me to partake in his care Orders: Orders Lipid Panel Today I25.10 - Atherosclerotic heart disease of [place] coronary artery without angina pectoris Basic Metabolic Panel Today I25.10 - Atherosclerotic heart disease of [place] coronary artery without angina pectoris Coding Level of Care Code Est Pt Level 4 (27480) Complex EM visit Add On G2211 Diagnoses CAD (coronary artery disease) I25.10 HTN (hypertension) I10 CPT Codes EKG - CPT: 35983-[id number], Complete ([id number])
[2024-08-08 10:36] VITALS: BP 128/64; PULSE 63; BMI 31.7
== END 2024-08-08 11:00 | disposition home or self-care (01) ==
PROVIDERS: PCP Physician Assistant Medical; Visit Provider Internal Medicine Cardiovascular Disease
DX: I25.10 Atherosclerotic heart disease of native coronary artery without angina pectoris (principal); I10 Essential (primary) hypertension
CPT/HCPCS: 93010; 99214; G2211

== ENCOUNTER 2024-08-08 10:32 | Outpatient (REF) | payer MEDICARE, SELFPAY ==
[2024-08-08 12:49] LABS: Anion Gap 13 (12-20); Blood Urea Nitrogen 16 mg/dL (9-16); Calcium 10.3 mg/dL (8.4-10.2); Carbon Dioxide 24 mmol/L (22-29); Chloride 110 mmol/L (96-108); Cholesterol 124 mg/dL (<200); Estimated Glomerular Filt Rate > 60; Glucose Random 84 mg/dL (60-115); HDL Cholesterol 44 mg/dL (>40); LDL Cholesterol Calculated 62 mg/dL (<100); Potassium 4.6 mmol/L (3.3-5.1); Sodium 142 mmol/L (135-145); Triglycerides 92 mg/dL (<150)
== END 2024-08-08 10:33 | disposition home or self-care (01) ==
LOC: HO.LAB 10:32
PROVIDERS: PCP Physician Assistant Medical; Visit Provider Internal Medicine Cardiovascular Disease
DX: I25.10 Atherosclerotic heart disease of native coronary artery without angina pectoris (principal); I10 Essential (primary) hypertension
CPT/HCPCS: 36415; 80048; 80061; 93005; 99212

== ENCOUNTER 2024-10-10 11:20 | Outpatient (AMB) | payer MEDICARE, SELFPAY ==
--- NOTE | 2024-10-10 11:27 | MHC.OFFVIS ---
Intake Visit Reasons: Self referral for ? blockage ? poor circulation Intake Note: Patient states he had heart surgery in 2022. His hands, leg and nose are constantly cold since then. No other symptoms present. Accompanied by: Spouse Allergies No Known Allergies Allergy (Verified 10/10/24 11:30) HPI HPI Self referral for ? blockage ? poor circulation: Details: The patient is a 73-year-old male presenting with cold extremities and intermittent claudication. He reports an ongoing sensation of coldness post-open heart surgery conducted in October 2022, affecting his hands, nose, and legs. The claudication described includes significant calf muscle pain and tightness exacerbated by walking and improved with rest. This has been a longstanding issue attributed previously to arthritis but is now more incapacitating. The patient has a history of smoking, having stopped about 30 years ago. He has no history of diabetes, with recent abstinence from alcohol and moderate caffeine intake reported. He now presents to us for vascular evaluation [facility] Medical History Ischemia of digits of hand CAD (coronary artery disease) Crescendo angina HTN (hypertension) Surgical History S/P CABG x 5 Hx of shoulder surgery Family History Father Cancer Mother Cancer Brother CAD (coronary artery disease) Social History Alcohol intake: never Patient Tobacco Use Status: Former Tobacco user Tobacco use type: Cigarette and Cigar Cigarette Packs Per Day: 1.5 Years Smoked: 30 Review of Systems Const All systems reviewed & are unremarkable except as noted in HPI and below Reports no additional complaints ENT Reports Normal hearing present Card Denies chest pain, Denies chest pain at rest, Denies chest pain with activity and Denies pedal edema Resp Denies cough GI Denies abdominal pain Musc Denies abnormal gait, Denies muscle cramps and Denies radiating pain into limb Skin/Breast Denies skin ulcer and Denies wounds Neuro Reports Normal hearing present and Denies abnormal gait Psych Reports no additional complaints Physical Exam Const General: cooperative, healthy appearing and comfortable Orientation/consciousness: oriented to person, oriented to place and oriented to time HEENT Head: Yes normal to inspection Neck Neck: Yes normal visual inspection Carotids: no bruits Chest Chest palpation & inspection: normal inspection of the chest Resp Effort & Inspection: normal respiratory effort and able to speak in complete sentences Auscultation: clear to auscultation bilaterally, no crackles, no rales, no rhonchi and no wheezes Cardio Other: Bilateral faintly palpable dorsalis pedis pulses Rate: regular rate Rhythm: regular rhythm Heart sounds: S1 normal heart sound present and S2 normal heart sound present Bruits: no carotid bruits GI Inspection: Yes normal to inspection Skin Wounds: no wounds Hair: normal Neuro General: oriented to person, oriented to place and oriented to time Cranial nerves: Yes CN's II-XII intact bilaterally and Yes Normal hearing present Cognition (Neuro): normal cognition Motor exam (neuro): 5/5 motor strength present throughout Extrem Other: venous exam: No significant superficial varicosities or spider telangiectasias, minimal edema General: No clubbing, No cyanosis and No edema Psych Appearance: grossly normal Mental Status: mental status grossly normal Speech and movement: Normal speech and movement present Assessment & Plan Assessment & Plan (1) PAD (peripheral artery disease): Code(s): I73.9 - Peripheral vascular disease, unspecified Category: Medical Plan: In short patient may have an element of peripheral vascular disease. I have taken the liberty of ordering noninvasive arterial testing to rule that out. The patient will follow up with us after testing. Thank you for allowing us to assist in his care. If there are any questions or concerns please do not hesitate to contact us. (2) Raynaud's disease: Code(s): I73.00 - Raynaud's syndrome without gangrene Category: Medical Qualifiers: Raynaud?s-associated gangrene presence: without gangrene Qualified Code(s): I73.00 - Raynaud's syndrome without gangrene Plan: The patient may have an element of Raynaud's phenomenon. He does note minimal caffeine intake no significant life stressors. I have discussed the pathophysiology with the patient, inclusive of spasming of the vessels and change in color of digits from white, red, and blue. We have discussed prevention inclusive of protection hand and feet at all times, reduction of caffeine intake, and reduction of stressors. He seems stable at the current time. He will follow up with us after arterial testing. Thank you for allowing us to assist in his care. If there are any questions or concerns please do not hesitate to contact us. Orders: Orders US arterial duplex LE BI 1 Week I73.9 - Peripheral vascular disease, unspecified Coding Level of Care Code New Pt Level 4 (13107) Complex EM visit Add On G2211 Diagnoses PAD (peripheral artery disease) I73.9 Raynaud's disease without gangrene I73.00 Raynaud?s-associated gangrene presence: without gangrene
== END 2024-10-10 12:13 | disposition home or self-care (01) ==
LOC: HO.HVS 11:20
PROVIDERS: PCP Physician Assistant Medical; Visit Provider Surgery Vascular Surgery
DX: I73.9 Peripheral vascular disease, unspecified (principal); I73.00 Raynaud's syndrome without gangrene
CPT/HCPCS: 99204; G2211

== ENCOUNTER → 2024-10-10 11:20 | Outpatient (BNVA) | payer MEDICARE, SELFPAY | PROVIDERS: PCP Physician Assistant Medical; Visit Provider Surgery Vascular Surgery | DX: I73.9 Peripheral vascular disease, unspecified (principal); I73.00 Raynaud's syndrome without gangrene | CPT/HCPCS: 99202 ==

== ENCOUNTER 2024-11-25 14:05 | Outpatient (REF) | payer MEDICARE, SELFPAY ==
--- NOTE | ~2024-11-25 | US_ITS ---
EXAMINATION: Noninvasive assessment of the bilateral lower extremities with ARTERIAL DUPLEX, ANKLE BRACHIAL INDICES (ABIs), and PULSE VOLUME RECORDINGS (PVRs). CLINICAL INFORMATION: Peripheral vascular disease, unspecified. TECHNIQUE: Duplex Doppler techniques with waveform analysis and measurement of velocities in the bilateral common femoral, profunda femoris, superficial femoral, popliteal and tibial arteries were performed. Additionally, ankle pulse volume recordings, ankle pressure measurements and ankle brachial indices were obtained of the lower extremity arterial system bilaterally. The study was performed only at rest. COMPARISON: None FINDINGS: DIRECT DUPLEX DOPPLER FINDINGS: RIGHT LEG: Common femoral artery: 97 cm/s, phasicity: Biphasic. Irregular calcified plaques. Profunda femoris artery: 89 cm/s, phasicity: Biphasic. Superficial femoral artery (proximal): 84 cm/s, phasicity: Triphasic. Superficial femoral artery (mid): 111 cm/s, phasicity: Triphasic. Superficial femoral artery (distal): 82 cm/s, phasicity: Triphasic. Popliteal artery: 57 cm/s, phasicity: Triphasic. Posterior tibial artery: 71 cm/s, phasicity: Triphasic. Peroneal artery: 76 cm/s, phasicity: Triphasic. Anterior tibial artery: 55 cm/s, phasicity: Triphasic. Dorsalis pedis artery: 66 cm/s, phasicity:Biphasic. LEFT LEG: Common femoral artery: 105 cm/s, phasicity: Biphasic. Profunda femoris artery: 96 cm/s, phasicity: Biphasic. Superficial femoral artery (proximal): 96 cm/s, phasicity: Triphasic. Superficial femoral artery (mid): 130 cm/s, phasicity: Triphasic. Superficial femoral artery (distal): 106 cm/s, phasicity: Triphasic. Popliteal artery: 74 cm/s, phasicity: Triphasic. Posterior tibial artery: 71 cm/s, phasicity: Biphasic. Peroneal artery: 80 cm/s, phasicity: Biphasic. Anterior tibial artery: 69 cm/s, phasicity: Triphasic. Dorsalis pedis artery: 59 cm/s, phasicity: Biphasic. BRACHIAL PRESSURES: Right: 131 Left: 138 ANKLE PRESSURES: Right: PT 209, DP 211 Left: PT 207, DP 200 ANKLE-BRACHIAL INDEX: Right: 1.53 Left: 1.5 ANKLE PVR WAVEFORMS: Right: Abnormal Left: Abnormal US/US arterial duplex BI w/ EVELIO IMPRESSION: Right leg: Mild inflow disease throughout the interrogated vessels, pronounced in the dorsalis pedis artery. Left leg: Mild inflow disease throughout the interrogated vessels, pronounced in the dorsalis pedis artery. EVELIO Reference: - >1.4 = calcified vessels - 0.9 - 1.4 = normal - no significant arterial disease - 0.7 - 0.89 = mild peripheral arterial disease - 0.51 - 0.69 = moderate peripheral arterial disease - d 0.50 = severe peripheral arterial disease - < .30 = critical arterial disease Electronically signed by: Naun Bartholomew MD 11/28/2024 09:01 AM EDT
--- OUTSIDE RECORDS SUMMARY | 2024-11-25 16:03 | XMS_ITS | Patient Health Record ---
Author Organization [facility] Kristian ilana Warren Address [address] [place] [address] Care Team Providers Care Field Service Specialist Name Role Phone Miguel Jasmine Primary Care Provider Unav miguel Chantal Pfeifferine Unavailable [phone] Allergies No Known Allergies Reason For Referral No Information Medications Medication SIG (Take, Route, Fr equency, Duration) Notes Start Date End Date Status Medrol lucius 4mg as directed orally a s directed for 6 days 11/06/2024 Active Meloxicam Active Metoprolol Succinate ER Active Atorvastatin Calcium Active Stool Softener Activ e Aspirin Low Dose Act jessica Social History Tobacco Use: Social History Observation Description Date Details (start date - stop date) Former Smoker NA - NA Tobacco use other than smoking: Question Answer Notes Are you an other tobacco user? No Tobacco Control (Standard) Question Answer Notes Tobacco use: Former smoker Additional Findings: Tobacco non-user Current no nsmoker AUDIT-C (Standard) Question Answer Notes Did you have a drink containing alcohol in the p ast year? No Points 0 Interpretation Negative Problems Problem Type SNOMED Code ICD Code Onset Dates Problem Status W/U Status Risk Notes Problem Plantar fasciitis of right foot (95976256817895612 ) Plantar fasciitis of right foot (M72.2) Active confirmed Problem Bilateral atherosclerosis of arteries of lower limbs (disorder) (37039266987333182 ) Atherosclerosis of [place] artery of both lower extremities, with unspecified presence of clinical manifestation (I70.203) Active confirmed Q7(A), Q8(2B), Q9(1B,2 C) Problem Interstitial myositis (08616023) Interstitial myositis of right foot (M60.171) Active confirmed Vital Signs Height 5ft 7inch in 11/06/2024 Weight 225 lbs 11/06/2024 BMI 35.24 kg/m2 11/06/2024 Encounters Encounter [facility] Date [facility] [address] 11/06/2024 Ana Pfeiffer Pain in right foot M79.671 ; Plantar fasciitis of right foot M72.2 ; Calcaneal spur, right foot M77.31 ; Interstitial myositis of right foot M60.171 ; Bursitis of right foot M77.51 ; Atherosclerosis of [place] artery of both lower extremities, with unspecified presence of clinical manifestation I70.203 and Tinea unguium B35.[address] [address] 08/28/2024 Ana Pfeiffer [address] [address] 09/09/2024 Ana Pfeiffer Assessments Encounter Date Diagnosis (ICD Code) Assessment Notes Treatment Notes Treatment Clinical Notes Section Notes 11/06/2024 Pain in right foot (ICD-10 - M79.671) 11/06/2024 Plantar fasciitis of right foot (ICD-10 - M72.2) Patient Educated with: HEEL CORD STRETCHES.pdf (HEEL CORD STRETCHES.pdf ) Patient Educated with: RICE THERAPY.pdf (RICE THERAPY.pdf) 11/06/2024 Calcaneal spur, right foot (ICD-10 - M77.31) 11/06/2024 Interstitial myositis of right foot (ICD-10 - M60.171) 11/06/2024 Bursitis of right foot (ICD-10 - M77.51) 11/06/2024 Tinea unguium (ICD-10 - B35.1) 11/06/2024 Atherosclerosis of [place] artery of both lower extremities, with unspecified presence of clinical manifestation (ICD-10 - I70.203) Q7(A), Q8(2B), Q9(1B,2C) Plan Of Treatment Pending Test Test Name Order Date X ray : Foot, right 3V 11/06/2024 Next Appt Details Provider Name:Ana Aldana ivone, 12/19/2024 03:30:00 PM, [address] [place], [address], Insurance Providers Payer Name Payer Address Payer Phone Subscriber Number Group Number Insured Name Patient Relationship to Insured Coverage Start Date Coverage End Date [facility] 65 Medicare [address] [place] [address] [phone] [id number] Chad Calixto Self - patient is the insured Medical (General) History Medical History History ICD Code Angina Arthritis Back,Hip,and Knee pain High Blood Pressure Replacement Heart Valves CAD Surgical History Surgery Date(Month/Year) Open Heart Sx 11/02/22 Hospitalization History Reason Date(Month/Year)
== END 2024-11-25 14:06 | disposition home or self-care (01) ==
LOC: HO.US 14:05
PROVIDERS: PCP Physician Assistant Medical; Visit Provider Surgery Vascular Surgery
DX: I73.9 Peripheral vascular disease, unspecified (principal)
CPT/HCPCS: 93922; 93925

== ENCOUNTER → 2024-11-25 14:12 | Outpatient (BNV) | payer MEDICARE, SELFPAY | PROVIDERS: PCP Physician Assistant Medical; Visit Provider Radiology Diagnostic Radiology | DX: I73.9 Peripheral vascular disease, unspecified (principal) | CPT/HCPCS: 93922; 93925 ==

== ENCOUNTER 2024-12-12 14:35 | Outpatient (AMB) | payer MEDICARE, SELFPAY ==
--- NOTE | 2024-12-12 14:37 | A.OFFVIS_ITS ---
Intake Visit Reasons: follow up Arterial US 11/25/24 Intake Note: Patient presents for arterial US. States he has bilateral pain/aches. Accompanied by: Spouse Allergies No Known Allergies Allergy (Verified 12/12/24 14:39) HPI HPI follow up Arterial US 11/25/24: Details: The patient is a 74-year-old male presenting with bilateral leg pain. The pain is described as severe and persistent, affecting both legs equally. The patient reports difficulty in ambulation, requiring assistance after walking short distances due to the intensity of the pain. The patient has a history of arthritis, which has been present for a long duration, starting at age 9. There is no recent consultation with a user support specialist for this condition. The patient also experiences intermittent back pain, particularly in the morning, which may contribute to the leg discomfort. The patient underwent heart surgery in 2019, which is relevant to his overall medical history. He is being maintained on aspirin and high-dose statin. He now presents for follow-up with noninvasive arterial testing. [facility] Medical History Ischemia of digits of hand CAD (coronary artery disease) Crescendo angina HTN (hypertension) Surgical History S/P CABG x 5 Hx of shoulder surgery Family History Father Cancer Mother Cancer Brother CAD (coronary artery disease) Social History Alcohol intake: never Patient Tobacco Use Status: Former Tobacco user Tobacco use type: Cigarette and Cigar Cigarette Packs Per Day: 1.5 Years Smoked: 30 Review of Systems Const All systems reviewed & are unremarkable except as noted in HPI and below Reports no additional complaints ENT Reports Normal hearing present Card Denies chest pain, Denies chest pain at rest, Denies chest pain with activity and Denies pedal edema Resp Denies cough GI Denies abdominal pain Musc Denies abnormal gait, Denies muscle cramps and Denies radiating pain into limb Skin/Breast Denies skin ulcer and Denies wounds Neuro Reports Normal hearing present and Denies abnormal gait Psych Reports no additional complaints Physical Exam Const General: cooperative, healthy appearing and comfortable Orientation/consciousness: oriented to person, oriented to place and oriented to time HEENT Head: Yes normal to inspection Neck Neck: Yes normal visual inspection Carotids: no bruits Chest Chest palpation & inspection: normal inspection of the chest Resp Effort & Inspection: normal respiratory effort and able to speak in complete sentences Auscultation: clear to auscultation bilaterally, no crackles, no rales, no rhonchi and no wheezes Cardio Other: Bilateral palpable dorsalis pedis pulses Rate: regular rate Rhythm: regular rhythm Heart sounds: S1 normal heart sound present and S2 normal heart sound present Bruits: no carotid bruits Peripheral pulses: Peripheral pulses 2+ throughout GI Inspection: Yes normal to inspection Skin Wounds: no wounds Hair: normal Neuro General: oriented to person, oriented to place and oriented to time Cranial nerves: Yes CN's II-XII intact bilaterally and Yes Normal hearing present Cognition (Neuro): normal cognition Motor exam (neuro): 5/5 motor strength present throughout Extrem Other: venous exam: No significant superficial varicosities or spider telangiectasias, minimal edema General: No clubbing, No cyanosis and No edema Psych Appearance: grossly normal Mental Status: mental status grossly normal Speech and movement: Normal speech and movement present Assessment & Plan Assessment & Plan (1) PAD (peripheral artery disease): Code(s): I73.9 - Peripheral vascular disease, unspecified Category: Medical Plan: In short patient is stable from a peripheral vascular standpoint. I did appreciate palpable arterial pulses and noninvasive testing dated 11/25 2024 demonstrates EVELIO bilaterally of 1.5. This may be artifactually elevated but in light of the fact that he has palpable pulses I do not think that his current pain issues are related to arterial disease. (2) Back pain: Code(s): M54.9 - Dorsalgia, unspecified Category: Medical Plan: I discussed with the patient that the ultrasound results show good blood flow to the legs, indicating that the pain is likely musculoskeletal rather than vascular. I recommended a referral to the pain management team for further evaluation and potential imaging studies to identify the cause of the pain. In addition there may even be a rheumatologic call us of this since he did have and reports arthritis since the age of 9. We will start with pain management evaluation. Orders: Orders US arterial duplex LE BI 1 Year I73.9 - Peripheral vascular disease, unspecified Referrals Pain Management Referral M54.9 - Dorsalgia, unspecified Coding Level of Care Code Est Pt Level 4 (62886) Complex EM visit Add On G2211 Diagnoses PAD (peripheral artery disease) I73.9 Back pain M54.9
--- OUTSIDE RECORDS SUMMARY | 2024-12-12 17:45 | XMS_ITS | Patient Health Record ---
Author Organization [facility] Kristian ilana Warren Address [address] [place] [address] [place] [address] Care Team Providers Care Health Specialist Name Role Phone Miguel Jasmine Primary Care Provider Radha rivera Chantal Pfeifferine Unavailable [phone] Allergies No Known Allergies Reason For Referral No Information Medications Medication SIG (Take, Route, Fr equency, Duration) Notes Start Date End Date Status Medrol lucius 4mg as directed orally a s directed; Duration: 6 days 11/06/2024 Activ e Meloxicam Active Metoprolol Succinate ER Active Atorvastatin [...] Notes Problem Plantar fasciitis of right foot (64014957744602 101) Plantar fasciitis of right foot (M72.2) Active confirmed Problem Atherosclerosis of [place] artery of both lower extremities, with unspecified presence of clinical manifestation (I70.203) Active confirmed Q7(A), Q8(2B), Q9(1B,2C ) Problem Interstitial myositis (01373923) Interstitial myositis of right foot (M60.171) Active confirmed Vital Signs Height 5ft 7inch in 11/06/2024 Weight 225 lbs 11/06/2024 BMI 35.24 kg/m2 11/06/2024 Encounters Encounter Location Date Provider Diagnosis [address] [address] 11/06/2024 Ana Pfeiffer Pain in right foot M79.671 ; Plantar fasciitis of right foot M72.2 ; Calcaneal spur, right foot M77.31 ; Interstitial myositis of right foot M60.171 ; Bursitis of right foot M77.51 ; Atherosclerosis of [place] artery of both lower extremities, with unspecified presence of clinical manifestation I70.203 and Tinea unguium B35.[address] [address] 08/28/2024 Ana Pfeiffer [address] [address] 09/09/2024 Ana Pfeiffer Assessments Encounter Date Diagnosis [...] unguium (ICD-10 - B35.1) 11/06/2024 Atherosclerosis of [place] artery of both lower extremities, with unspecified presence of clinical manifestation (ICD-10 - I70.203) Q7(A), Q8(2B), Q9(1B,2C) Plan Of Treatment Pending Test Test Name Order Date X ray : Foot, right 3V 11/06/2024 Next Appt Details Provider Name:Ana wiseman, 12/19/2024 03:30:00 PM, [address] [place] [address], [phone], Insurance Providers Payer Name Payer Address Payer Phone Subscriber Number Group Number Insured Name Patient Relationship to Insured Coverage Start Date Coverage End Date [facility] 65 Medicare Preferred [address] [place] [address] [phone] [id number] Chad Calixto Self - patient is the insured Medical (General) History Medical History History ICD Code Angina Arthritis Back,Hip,and Knee pain High Blood Pressure Replacement Heart Valves CAD Surgical History Surgery Date(Month/Year) Open Heart Sx 11/02/22 Hospitalization History Reason Date(Month/Year)
== END 2024-12-12 15:10 | disposition home or self-care (01) ==
LOC: HO.HVS 14:35
PROVIDERS: PCP Physician Assistant Medical; Visit Provider Surgery Vascular Surgery
DX: I73.9 Peripheral vascular disease, unspecified (principal); M54.9 Dorsalgia, unspecified
CPT/HCPCS: 99214; G2211

== ENCOUNTER → 2024-12-12 14:35 | Outpatient (BNVA) | payer MEDICARE, SELFPAY | PROVIDERS: PCP Physician Assistant Medical; Visit Provider Surgery Vascular Surgery | DX: M79.604 Pain in right leg (principal); M79.605 Pain in left leg; R26.2 Difficulty in walking, not elsewhere classified; I73.9 Peripheral vascular disease, unspecified; M54.9 Dorsalgia, unspecified | CPT/HCPCS: 99212 ==

== ENCOUNTER 2025-01-16 08:26 | Outpatient (AMB) | payer MEDICARE, SELFPAY ==
--- NOTE | 2025-01-16 08:25 | A.OFFVIS_ITS ---
Vital Signs 01/16/25 08:34 01/16/25 08:57 Height 5 ft 11 in Weight 220 lb BMI 30.7 BP 92/50 L 104/55 L Blood Pressure Location Lt brachial Rt brachial Position Sitting Sitting Respiration 16 Pulse 63 62 Pulse Source Pulse Oximeter Pulse Oximeter Pulse Oximetry (%) 96 97 Oxygen Delivery Method Room Air Room Air Intake Visit Reasons: Dorsalgia Intake Note: Pain today 10/26 Metal Wire Technician Required: No Accompanied by: Spouse Allergies No Known Allergies Allergy (Verified 01/16/25 08:33) HPI Comments Details: The patient is a 74-year-old male presenting with back pain and bilateral leg pain. He reports a history of arthritis in both legs since the age of 9, but has never undergone a rheumatologic evaluation. Recently, he underwent a Vascular evaluation for his legs, which showed an ankle-brachial index of 1.5 bilaterally, considered artificially elevated due to palpable pulses. The Vascular provider deemed him stable from a peripheral vascular standpoint and re ferred him to rule out musculoskeletal causes for his leg pain. The patient describes his back pain as intermittent, worsening in the afternoon, and affecting his sleep and daily activities. The leg pain is severe, ranging from 9/10 in the afternoon to 3/10 in the morning, back pain 8/10 and is exacerbated by walking, bending, most daily activities and weather changes. He describes the pain as throbbing, stabbing, sharp, cramping, pinching, tugging, tingling, hurting, sore, aching, heavy, tiring, tightness, and squeezing. The patient has a history of coronary artery disease and underwent quintuple coronary artery bypass grafting in Oct, 2022. He has a history of smoking for 30 years, currently not smoking. Denies alcohol or marijuana consumption. He completed physical therapy with minimal improvement and has been taking Tylenol, which has not been helpful. Patient reports, prior back and leg pain flare up few months ago, he used to daily walk and do stretching for exercise, but with worsening back and leg pain, he is not able to walk more than 5 feet due to increasing leg, back pain with heaviness in his legs and numbness in his anterior thighs, shins and left calf. Reports constant burning pain in his legs and feet. - Onset: Intermittent back pain, worsening in the afternoon - Quality: Throbbing, stabbing, sharp, cramping, pinching, tugging, tingling, hurting, sore, aching, heavy, tiring, tightness, squeezing - Location: Back and bilateral legs - Radiation: Pain travels to the front of the thighs - Exacerbating factors: Weather changes, lifting heavy objects, bending, walking, changing positions - Relieving factors: Cold application, hot showers, rest, no relief with Tylenol - Interference: Affects sleep and daily activities - Affect: Pain affects sleep and daily activities - Analgesia: Currently taking Tylenol with minimal relief - Adverse Effects: None reported - Activities of Daily Living: Pain limits mobility and ability to perform daily tasks - Aberrant Drug Related Behaviors: None reported Oswestry Low Back Pain Disability Score=29 PFSH Medical History Ischemia of digits of hand CAD (coronary artery disease) Crescendo angina HTN (hypertension) Surgical History S/P CABG x 5 Hx of shoulder surgery Family History Father Cancer Mother Cancer Brother CAD (coronary artery disease) Social History Alcohol intake: never Patient Tobacco Use Status: Former Tobacco user Tobacco use type: Cigarette and Cigar Cigarette Packs Per Day: 1.5 Years Smoked: 30 Review of Systems Const Details: - Musculoskeletal: Reports back pain, bilateral leg pain, and back, hip, knee and hand arthritis - Neurological: Reports intermittent numbness in shins and anterior thighs, denies numbness in buttocks; denies bladder or bowel dysfunction or saddle anesthesia - Cardiovascular: Reports history of coronary artery disease, denies chest pain, dyspnea - General: Reports fatigue due to pain; dizziness with low blood pressure; denies fever, chills, or cough All systems reviewed & are unremarkable except as noted in HPI and below Physical Exam Vital Signs: Last Vital Signs Pulse 62 01/16/25 08:57 Resp 16 01/16/25 08:57 BP 104/55 L 01/16/25 08:57 Pulse Ox 97 01/16/25 08:57 Oxygen Delivery Method Room Air 01/16/25 08:57 BMI result Body Mass Index 30.7 General: Appears afebrile. Alert and oriented. Mood and affect appropriate. Follows and participates in conversation appropriately. Respiratory effort is unlabored. No cough. Able to transition from sit to stand unassisted. Uses cane at home. Ambulates with bilaterally normal heel strike and toe off, increased pain with walking >5 feet General: Yes no CVA tenderness Back/Spine/Pelvis Other: Limited lumbar ROM due to pain. Lumbar flexion forward and bending reproduces moderate to severe pain; lumbar extension reproduces mild pain. Demonstrates 5/5 right and 4/5 left strength of quadriceps bilaterally as well as flexion/dorsiflexion of bilateral feet against resistance. 2+ pedal pulses bilaterally. Straight leg rise with dorsiflexion positive bilaterally. +1 patellar and diminished achilles reflexes bilaterally. Facet loading test positive bilaterally. Pedro?s and Stinchfield tests are negative bilaterally. No groin pain with I/E hip rotations. Valsalva maneuver is positive. Back: no CVA tenderness Cervical Spine: cervical ROM normal and No Cervical spine tenderness Thoracic/Lumbar Spine: thoracic and lumbar spine normal to inspection, No Thoracic/lumbar spine scar(s), Lasegue's sign positive (left L5-S1 right L4-L5) bilateral and localized, pain with thoraco-lumbar ROM, paraspinal muscle tenderness, thoraco-lumbar ROM limited, No thoracic spinal tenderness and lumbar spinal tenderness (L4-S1) Sacroiliac joints: bilaterally nontender Extrem General: Yes capillary refill normal, Yes no clubbing, cyanosis or edema and Yes no calf tenderness Results Reviewed Results Reviewed: XR BILATERAL HIPS WITH AP PELVIS 06/03/22 CLINICAL INFORMATION: Pain COMPARISON: None TECHNIQUE: AP view of the pelvis with coned frontal and frog-leg lateral views of each hip were obtained. FINDINGS: Both femoral heads are well-seated within the respected acetabula. Degenerative changes are seen with mild osteophyte formation. I do not appreciate any cortical disruption or trabecular irregularity to suggest underlying occult fracture. Mild degenerative changes seen in the pelvis and visualized lower lumbar spine. Unremarkable bowel gas pattern. Vascular calcifications seen IMPRESSION: Mild degenerative changes but no acute fracture or dislocation seen. US arterial duplex BI w/ EVELIO 11/25/24 IMPRESSION: Right leg: Mild inflow disease throughout the interrogated vessels, pronounced in the dorsalis pedis artery. Left leg: Mild inflow disease throughout the interrogated vessels, pronounced in the dorsalis pedis artery. ANKLE-BRACHIAL INDEX: Right: 1.53 Left: 1.5 ANKLE PVR WAVEFORMS: Right: Abnormal Left: Abnormal Assessment & Plan Assessment & Plan (1) Polyarthritis: Code(s): M13.0 - Polyarthritis, unspecified Category: Medical (2) Chronic low back pain with bilateral sciatica: Code(s): M54.41 - Lumbago with sciatica, right side; M54.42 - Lumbago with sciatica, left side; G89.29 - Other chronic pain Category: Medical (3) Lumbar degenerative disc disease: Code(s): M51.369 - Other intervertebral disc degeneration, lumbar region without mention of lumbar back pain or lower extremity pain Category: Medical (4) Lumbar radiculopathy: Code(s): M54.16 - Radiculopathy, lumbar region Category: Medical Plan The plan includes obtaining an MRI of the lumbar spine to evaluate for potential disc degeneration, pinched nerve, or spinal stenosis, as these could be contributing to the patient's symptoms. A back x-ray will also be performed to assess for any degenerative changes and rule out instability. Lab work will be conducted to rule out rheumatoid arthritis or other inflammatory conditions with long standing history of arthritis since age 9. The patient is advised to use a cane to aid in mobility and prevent falls until further evaluation is completed. The patient is instructed to contact his Human Resources Benefits Administrator regarding his low blood pressure and to refrain from taking metoprolol until further advice is received. All questions and concerns have been answered and patient agreed with the plan. Follow up for xray/MRI/lab results and sooner as needed. Patient was informed and verbally consented to the use of an ambient scribe for clinic note documentation during this visit. Orders: Orders MASOUD Reflex Titer and Pattern Today M13.0 - Polyarthritis, unspecified C Reactive Protein Today M13.0 - Polyarthritis, unspecified XR lumbar spine 4V min Today G89.29 - Other chronic pain, M13.0 - Polyarthritis, unspecified, M51.369 - Other intervertebral disc degeneration, lumbar region without mention of lumbar back pain or lower extremity pain, M54.16 - Radiculopathy, lumbar region, M54.41 - Lumbago with sciatica, right side, M54.42 - Lumbago with sciatica, left side MR lumbar spine wo con Today G89.29 - Other chronic pain, M51.369 - Other intervertebral disc degeneration, lumbar region without mention of lumbar back pain or lower extremity pain, M54.16 - Radiculopathy, lumbar region, M54.41 - Lumbago with sciatica, right side, M54.42 - Lumbago with sciatica, left side Erythrocyte Sedimentation Rate Today M13.0 - Polyarthritis, unspecified Rheumatoid Factor Today M13.0 - Polyarthritis, unspecified Patient Instructions: I discussed with the patient the need for further imaging studies, including an MRI and x-ray, to better understand the cause of his back and leg pain. We talked about the possibility of disc degeneration or spinal stenosis contributing to his symptoms. I advised him to use a cane for stability and to prevent falls. We also discussed the importance of contacting his briefcase sewer regarding his low blood pressure and the temporary discontinuation of metoprolol as he reports significant dizziness after taking it. I emphasized the need for follow-up once the diagnostic results are available to determine the next steps in his management. Coding Level of Care Code New Pt Level 4 (69846) Diagnoses Polyarthritis M13.0 Chronic low back pain with bilateral sciatica M54.41; M54.42; G89.29 Lumbar degenerative disc disease M51.369 Lumbar radiculopathy M54.16
[2025-01-16 08:34] VITALS: BP 92/50; PULSE 63; O2SAT 96; BMI 30.7
--- OUTSIDE RECORDS SUMMARY | 2025-01-16 08:35 | XMS_ITS | Encounter Summary ---
Author Organization [facility] Address [address] [place] [address] Care Team Providers Care Oracle Database Analyst Name Role Phone Miguel Pisano Primary Care Provider [phone] Encounter Details Date Type Department Care Team (Late st Contact Info) Description 01/15/[address] [facility] [address] [place] [address] Miguel Pisano PA [address] [place] [address] Social History Tobacco Use Types Packs/Day Years Used Date Smoking Tobacco: Former Cigarettes 2 44.4 0 12/13/1963 - 05/01/2008 Smokeless Tobacco: Never Alcohol Use Standard Drinks/Week Comments Yes 0 (1 standard drink = 0.6 oz pur e alcohol) Sex and Gender Information Value Date Recorded Sex Assigned at Not on file Legal Sex Male 3:52 AM EST Gender Identity Not on file Sexual Orientation Not on file documented as of this encounter Progress Notes * Margarette Louis RN - 01/16/2025 8:16 AM EDT [phone] (home) Called number listed no answer a/m stated last name , left message to call the office at [phone] to follow up on pt.'s blood pressure * EMILIANO Griggs - 01/15/2025 8:46 PM EDT I would check in with him tomorrow and see how he's doing. Might hold metoprolol if BP is still on the lower side * Meggan Lu RN - 01/15/2025 3:56 PM EDT Spoke with Woke this morning and a little stuffy, temp taken at 1:24 and did not have a fever 98/49 HR 77 and was light headed Took again at 3:30 93/56 HR 71 temp 98.4 was still light headed. Does have air conditioning and is running. She is trying to give him Pedialyte and Gatorade He is eating and drinking normally. Urinating normally He is taking metoprolol succinate 25 mg tab and taking 1/2 tab at night Advised would send message to PCP for further direction Please advise * Kim Ayon - 01/15/2025 3:53 PM EDT Patients calling states Aryan Bp a 1pm 98/49 and now at 3:30 93/56 says patient is a lil light headed [phone] documented in this encounter Plan of Treatment Not on file documented as of this encounter Visit Diagnoses Not on filedocumented in this encounter Additional Health Concerns Assessment Noted Time PHQ-9 Depression Total Score: 0 08/28/19 25 1:58 PM EDT documented as of this encounter Care Teams Oracle Database Analyst Relationship Specialty Start Date End Date Miguel Pisano PA [address] [place] [id number] PCP - General Internal Medicine 08/26/20 documented as of this encounter
--- OUTSIDE RECORDS SUMMARY | 2025-01-16 08:35 | XMS_ITS | Patient Health Record ---
Author Organization [facility] Kristian ilana Warren Address [address] [place] [address] Care Team Providers Care Industrial Relations Director Name Role Phone Miguel Jasmine Primary Care Provider Unav miguel Chantal Pfeifferine Unavailable [phone] Allergies No Known Allergies Reason For Referral No Information Medications Medication SIG (Take, Route, Fr equency, Duration) Notes Start Date End Date Status Medrol lucius 4mg as directed orally a s directed; Duration: 6 days Activ e Stool Softener Activ e Metoprolol Succinate ER Active Atorvastatin Calcium Active Aspirin Low Dose Act jessica Meloxicam Active Immunizations Vaccine Route Administration Date Status Comme nts Influenza Unknown 03/19/2024 Administered Social History Tobacco Use: Social History Observation [...] Notes Problem Plantar fasciitis of right foot ([id number] 101) Plantar fasciitis of right foot (M72.2) Active confirmed Problem Atherosclerosis of [place] artery of both lower extremities, with unspecified presence of clinical manifestation (I70.203) Active confirmed Q7(A), Q8(2B), Q9(1B,2C ) Problem Interstitial myositis (85785940) Interstitial myositis of right foot (M60.171) Active confirmed Vital Signs Blood pressure diastolic 65 mm Hg 12/19/2024 Height 5ft 7inch in 12/19/2024 Blood pressure systolic 130 mm Hg 12/19/2024 Weight 225 lbs 12/19/2024 BMI 35.24 kg/m2 12/19/2024 Encounters Encounter Location Date Provider Diagnosis [address] [address] 11/06/2024 Ana Coreasaker Pain in right foot M79.671 ; Plantar fasciitis of right foot M72.2 ; Calcaneal spur, right foot M77.31 ; Interstitial myositis of right foot M60.171 ; Bursitis of right foot M77.51 ; Atherosclerosis of white mountain artery of both lower extremities, with unspecified presence of clinical manifestation I70.203 and Tinea unguium B35.[address] [address] 12/19/2024 Ana Margarette Pain in right foot M79.671 ; Plantar fasciitis of right foot M72.2 ; Calcaneal spur, right foot M77.31 ; Interstitial myositis of right foot M60.171 ; Bursitis of right foot M77.51 ; Atherosclerosis of white mountain artery of both lower extremities, with unspecified presence of clinical manifestation I70.203 and Tinea unguium B35.[address] [address] 08/28/2024 Ana Pfeiffer [address] [address] 09/09/2024 Ana Pfeiffer Assessments Encounter Date Diagnosis (ICD Code) Assessment Notes Treatment Notes Treatment Clinical Notes Section Notes 11/06/2024 Pain in right foot (ICD-10 - M79.671) 12/19/2024 Pain in right foot (ICD-10 - M79.671) 12/19/2024 Plantar fasciitis of right foot (ICD-10 - M72.2) Patient Educated with: HEEL CORD STRETCHES.pdf (HEEL CORD STRETCHES.pdf ) Patient Educated with: RICE THERAPY.pdf (RICE THERAPY.pdf) 11/06/2024 Plantar fasciitis of right foot (ICD-10 - M72.2) Patient Educated with: HEEL CORD STRETCHES.pdf (HEEL CORD STRETCHES.pdf ) Patient Educated with: RICE THERAPY.pdf (RICE THERAPY.pdf) 11/06/2024 Calcaneal spur, right foot (ICD-10 - M77.31) 12/19/2024 Calcaneal spur, right foot (ICD-10 - M77.31) 12/19/2024 Interstitial myositis of right foot (ICD-10 - M60.171) 11/06/2024 Interstitial myositis of right foot (ICD-10 - M60.171) 11/06/2024 Bursitis of right foot (ICD-10 - M77.51) 12/19/2024 Bursitis of right foot (ICD-10 - M77.51) 12/19/2024 Atherosclerosis of [place] mountain artery of both lower extremities, with unspecified presence of clinical manifestation (ICD-10 - I70.203) Q7(A), Q8(2B), Q9(1B,2C) 11/06/2024 Tinea unguium (ICD-10 - B35.1) 12/19/2024 Tinea unguium (ICD-10 - B35.1) 11/06/2024 Atherosclerosis of [place] mountain artery of both lower extremities, with unspecified presence of clinical manifestation (ICD-10 - I70.203) Q7(A), Q8(2B), Q9(1B,2C) Plan Of Treatment Pending Test Test Name Order Date X ray : Foot, right 3V 11/06/2024 X ray : Foot, right 3V 12/19/2024 Insurance Providers Payer Name Payer Address Payer Phone Subscriber Number Group Number Insured Name Patient Relationship to Insured Coverage Start Date Coverage End Date [facility] 65 Medicare Preferred [address] [place] [address] [id number] Chad Calixto Self - patient is the insured Medical (General) History Medical History History ICD Code Angina Arthritis Back,Hip,and Knee pain High Blood Pressure Replacement Heart Valves CAD Surgical History Surgery Date(Month/Year) Open Heart Sx 11/02/22 Hospitalization History Reason Date(Month/Year)
--- OUTSIDE RECORDS SUMMARY | 2025-01-16 08:35 | XMS_ITS ---
Author Name [facility] Organization Unknown Care Team Organization Name Specialty Phone Email Start Date End Da te [facility] Miguel Pisano Primary Care 04/26/2022
--- OUTSIDE RECORDS SUMMARY | 2025-01-16 08:35 | XMS_ITS | Clinical Summary ---
Author Organization [facility] Address [address] [place] [address] Phone Care Team Providers Care Ecommerce Marketing Specialist Name Role Phone Hi Lopez MD Primary Care Provider U navailable Allergies Active Allergy Reactions Criticality Noted Date Comments Oxycodone Hcl 01/11/2017 Other reaction(s): hallucinations Medications atorvastatin (LIPITOR) 10 MG tablet Take 10 mg by mouth daily. 5 09/13/2017 Active lisinopril (PRINIVIL,ZESTRI L) 20 MG tablet Take 20 mg by mouth daily. 5 09/13/2017 Active Family History Medical History Relation Comments Cancer Brother Cancer Unspecified Infl. arthritis Unspecified Relation Status Comments Brother Unspecified Social History Tobacco Use Types Packs/Day Years Used Date Smoking Tobacco: Former Smokeless Tobacco: Never Alcohol Use Standard Drinks/Week Comments Yes 0 (1 standard drink = 0.6 oz pur e alcohol) Education Answer Date Recorded Are you interested in more education? Not on cesar e 10/14/2022 Are you concerned about learning? Not on file 10/14/2022 No 10/14/2022 No 10/14/2022 Digital Access Answer Date Recorded No 11/12/2022 No 11/12/2022 Reliable internet access at home? Not on file 11/12/2022 Device with a working camera? Not on file Sex and Gender Information Value Date Recorded Sex Assigned at Not on file Legal Sex Male 10:02 PM EDT Gender Identity Not on file Sexual Orientation Not on file Last Filed Vital Signs Vital Sign Reading Time Taken Comments Blood Pressure - - Pulse - - Temperature - - Respiratory Rate - - Oxygen Saturation - - Inhaled Oxygen Concentration - - Weight 110.2 kg (242 lb 15.2 oz) 10/11/2017 9:07 AM EDT Height 180.3 cm (5' 10.98 ) 10/11/2017 9:07 AM E DT Body Mass Index 33.9 10/11/2017 9:07 AM EDT Plan of Treatment Health Maintenance Due Date Last Done Comments CREATININE LEVEL 1949 LIPID PANEL 1949 POTASSIUM LEVEL 1949 DEPRESSION SCREENING 1961 SMOKING Hx and SMOKELESS TOBACCO SCREENING 1962 HEPATITIS C SCREENING 12/13/1967 COLOGUARD 1994 COLONOSCOPY 1994 COLORECTAL CANCER SCREENING 1994 FIT TEST 1994 FOBT 1994 SIGMOIDOSCOPY 1994 VIRTUAL COLONOSCOPY 1994 ZOSTER VACCINES (2 of 3) 01/31/2013 12/06/2012 COVID-19 VACCINE (2 - 2023-2 5 season) 2024 12/09/2020 RSV VACCINE (1 - 1-dose 75+ series) 2024 Adult Td,Tdap Booster 11/23/2027 11/22/2017 , 11/15/2007 PNEUMOCOCCAL VACCINES (50+ years) Completed 05/24/2017, 02/04/2016 HEPATITIS A VACCINES Aged Out No long er eligible based on patient's age to complete this topic HIB VACCINES Aged Out No longer eligi ble based on patient's age to complete this topic MENINGOCOCCAL VACCINES (ACWY) Aged Out No longer eligible based on patient's age to complete this topic MENINGOCOCCAL VACCINES (B) Aged Out N o longer eligible based on patient's age to complete this topic Medical Devices Not on file Insurance MEDICARE PART A & B Member Subscriber Plan / Payer (Ef fective 2017-Present) Name:Chad Angel Member ID:[id number] Relation to Subscriber:Self Name:Chad Angel Subscriber ID:[id number] Payer ID:[id number] Group ID:Not on file Type:Medicare Address: [employer] [address] MEDICARE PPO BLUE REPLACEMENT MEDICARE PART A & B MEDICARE PPO BLUE REPLACEMENT MEDICARE PART A & B Member Subscriber Plan / Payer ( fective 2017-Present) Name:Chad Angel Member ID:[id number] Relation to Subscriber:Self Name:Chad Angel Subscriber ID:[id number] Payer ID:[id number] Group ID:Not on file Type:Medicare Address: [facility] [employer] [facility] [address] MEDICARE PPO BLUE REPLACEMENT MEDICARE PART A & B Member Subscriber Plan / Payer (Ef fective 2017-Present) Name:Chad Angel Member ID:[id number] Relation to Subscriber:Self Name:Chad Angel Subscriber ID:[id number] Payer ID:[id number] Group ID:Not on file Type:Medicare Address: [employer] [address] MEDICARE PPO BLUE REPLACEMENT MEDICARE PART A & B Member Subscriber Plan / Payer (Ef fective 2017-Present) Name:Chad Angel Member ID:[id number] Relation to Subscriber:Self Name:Chad Angel Subscriber ID:[id number] Payer ID:[id number] Group ID:Not on file Type:Medicare Address: [employer] [address] [place] [address] [place] [address] MEDICARE PPO BLUE REPLACEMENT MEDICARE PART A & B Member Subscriber Plan / Payer (Ef fective 2017-Present) Name:Chad Angel Member ID:[id number] Relation to Subscriber:Self Name:Chad Angel Subscriber ID:[id number] Payer ID:[id number] Group ID:Not on file Type:Medicare Address: [employer] [address] [place] [id number] [place] [address] MEDICARE PPO BLUE REPLACEMENT MEDICARE PART A & B MEDICARE PPO BLUE REPLACEMENT MEDICARE PART A & B Member Subscriber Plan / Payer ( fective 2017-Present) Name:Chad Angel Member ID:[id number] Relation to Subscriber:Self Name:Chad Angel Subscriber ID:[id number] Payer ID:[id number] Group ID:Not on file Type:Medicare Address: [employer] [address] [place] [address] [place] [address] MEDICARE PPO BLUE REPLACEMENT MEDICARE PART A & B [place] BLUE REPLACEMENT Care Teams Ecommerce Marketing Specialist Relationship Specialty Start Date End Date Hi Lopez MD PCP - General 04/03/17 Additional Source Comments The information contained in this document represents components of the legal health record. It is not the complete legal health record.[facility]
[2025-01-16 08:57] VITALS: BP 104/55; PULSE 62; RESP 16; O2SAT 97
== END 2025-01-16 09:00 | disposition home or self-care (01) ==
LOC: HO.PMC 08:27
PROVIDERS: PCP Physician Assistant Medical; Referring Provider Surgery Vascular Surgery; Visit Provider Nurse Practitioner Family
DX: M13.0 Polyarthritis, unspecified (principal); M54.41 Lumbago with sciatica, right side; M54.42 Lumbago with sciatica, left side; G89.29 Other chronic pain; M51.369 Other intervertebral disc degeneration, lumbar region without mention of lumbar back pain or lower extremity pain; M54.16 Radiculopathy, lumbar region
CPT/HCPCS: 99204

== ENCOUNTER 2025-01-16 08:26 | Outpatient (REF) | payer MEDICARE, SELFPAY ==
--- NOTE | ~2025-01-16 | XR_ITS ---
EXAMINATION: X-ray lumbar spine CLINICAL INFORMATION: Bilateral. Right-sided. Sciatica. TECHNIQUE: AP oblique and lateral views. COMPARISON: None FINDINGS: Multilevel syndesmophyte formation and marginal osteophyte formation and endplate sclerosis and decreased intervertebral disc axial skeleton. 4 mm retrolisthesis at L3-4. Facet joint hypertrophy at L5-S1. Mild levoconvex curvature. No acute cortical disruption. No lytic or blastic lesion. Vascular calcifications, aorta and iliac arteries. XR/XR lumbar spine 4V min IMPRESSION: Multilevel thoracolumbar spondylosis resulting in grade 1 retrolisthesis L3-4. Electronically signed by: Naun Bartholomew MD 01/16/2025 10:36 AM EDT
[2025-01-22 11:19] LABS: Anti Nuclear Antibody Pattern Nuclear, Speckled; Anti Nuclear Antibody Screen POSITIVE (NEGATIVE); Anti Nuclear Antibody Titer 1:40 titer
== END 2025-01-16 08:27 | disposition home or self-care (01) ==
LOC: HO.XRAY 08:26
PROVIDERS: PCP Physician Assistant Medical; Referring Provider Surgery Vascular Surgery; Visit Provider Nurse Practitioner Family
DX: M51.16 Intervertebral disc disorders with radiculopathy, lumbar region (principal); M13.0 Polyarthritis, unspecified; G89.29 Other chronic pain; R42 Dizziness and giddiness; Z01.84 Encounter for antibody response examination
CPT/HCPCS: 36415; 72110; 85652; 86038; 86039; 86140; 86431; 99202

== ENCOUNTER → 2025-01-16 09:29 | Outpatient (BNV) | payer MEDICARE, SELFPAY | PROVIDERS: PCP Physician Assistant Medical; Referring Provider Surgery Vascular Surgery; Visit Provider Radiology Diagnostic Radiology | DX: M47.895 Other spondylosis, thoracolumbar region (principal) | CPT/HCPCS: 72110 ==

== ENCOUNTER 2025-01-30 08:42 | Outpatient (AMB) | payer MEDICARE, SELFPAY ==
--- NOTE | 2025-01-30 08:49 | MHC.OFFVIS ---
Vital Signs 01/30/25 08:52 Height 5 ft 11 in Weight 220 lb BMI 30.7 BP 113/57 L Blood Pressure Location Rt brachial Position Sitting Pulse 73 Pulse Source Pulse Oximeter Pulse Oximetry (%) 98 Oxygen Delivery Method Room Air Intake Visit Reasons: Discuss X-Ray/Lab Results Intake Note: Pain today 8/10 Candy Department Manager Required: No Accompanied by: Self / Same As Patient Allergies No Known Allergies Allergy (Verified 01/30/25 08:52) HPI Comments Details: The patient is a 74-year-old male presenting with chronic back pain and discuss recent lumbar spine xray and lab results. The patient has a history of multilevel thoracic and lumbar spondylosis with first degree spondylolisthesis at L3 to L4, identified through imaging studies. Bone spurs and arthritis are also present, contributing to the patient's chronic back pain. The patient reports that the pain radiates to the legs, particularly affecting the thighs and knees, and is exacerbated by standing upright and walking. The patient has elevated ESR and C-reactive protein, positive MASOUD with speckled A and negative Rheumatoid factor, suggesting a possible autoimmune condition. The patient is scheduled to see a Program Development Manager in March for further evaluation but will reach out to them for a sooner appointment. The patient also reports he has been experiences fatigue and daytime sleeping. He will follow up with Primary care and Cardiology providers for this. Denies any recent cough, cold, infection, fever or any other significant changes in medical history since last office visit. PRIOR: The patient is a 74-year-old male presenting with back pain and bilateral leg pain. He reports a history of arthritis in both legs since the age of 9, but has never undergone a rheumatologic evaluation. Recently, he underwent a Vascular evaluation for his legs, which showed an ankle-brachial index of 1.5 bilaterally, considered artificially elevated due to palpable pulses. The Vascular provider deemed him stable from a peripheral vascular standpoint and referred him to rule out musculoskeletal causes for his leg pain. The patient describes his back pain as intermittent, worsening in the afternoon, and affecting his sleep and daily activities. The leg pain is severe, ranging from 9/10 in the afternoon to 3/10 in the morning, back pain 8/10 and is exacerbated by walking, bending, most daily activities and weather changes. He describes the pain as throbbing, stabbing, sharp, cramping, pinching, tugging, tingling, hurting, sore, aching, heavy, tiring, tightness, and squeezing. The patient has a history of coronary artery disease and underwent quintuple coronary artery bypass grafting in Oct, 2022. He has a history of smoking for 30 years, currently not smoking. Denies alcohol or marijuana consumption. He completed physical therapy with minimal improvement and has been taking Tylenol, which has not been helpful. Patient reports, prior back and leg pain flare up few months ago, he used to daily walk and do stretching for exercise, but with worsening back and leg pain, he is not able to walk more than 5 feet due to increasing leg, back pain with heaviness in his legs and numbness in his anterior thighs, shins and left calf. Reports constant burning pain in his legs and feet. - Onset: Intermittent back pain, worsening in the afternoon - Quality: Throbbing, stabbing, sharp, cramping, pinching, tugging, tingling, hurting, sore, aching, heavy, tiring, tightness, squeezing - Location: Back and bilateral legs - Radiation: Pain travels to the front of the thighs - Exacerbating factors: Weather changes, lifting heavy objects, bending, walking, changing positions - Relieving factors: Cold application, hot showers, rest, no relief with Tylenol - Interference: Affects sleep and daily activities - Affect: Pain affects sleep and daily activities - Analgesia: Currently taking Tylenol with minimal relief - Adverse Effects: None reported - Activities of Daily Living: Pain limits mobility and ability to perform daily tasks - Aberrant Drug Related Behaviors: None reported Oswestry Low Back Pain Disability Score=29 [facility] Medical History Ischemia of digits of hand CAD (coronary artery disease) Crescendo angina HTN (hypertension) Surgical History S/P CABG x 5 Hx of shoulder surgery Family History Father Cancer Mother Cancer Brother CAD (coronary artery disease) Social History Alcohol intake: never Patient Tobacco Use Status: Former Tobacco user Tobacco use type: Cigarette and Cigar Cigarette Packs Per Day: 1.5 Years Smoked: 30 Review of Systems Const All systems reviewed & are unremarkable except as noted in HPI and below Physical Exam Vital Signs: Last Vital Signs Pulse 73 01/30/25 08:52 BP 113/57 L 01/30/25 08:52 Pulse Ox 98 01/30/25 08:52 Oxygen Delivery Method Room Air 01/30/25 08:52 BMI result Body Mass Index 30.7 General: Appears afebrile. Alert and oriented. Mood and affect appropriate. Follows and participates in conversation appropriately. Respiratory effort is unlabored. No cough. Able to transition from sit to stand unassisted. Uses cane at home. Ambulates with bilaterally normal heel strike and toe off, increased pain with walking >5 feet General: Yes no CVA tenderness Back/Spine/Pelvis Other: Limited lumbar ROM due to pain. Lumbar flexion forward and bending reproduces moderate pain; lumbar extension reproduces moderate to sever pain. Demonstrates 5/5 right and 4/5 left strength of quadriceps bilaterally as well as flexion/dorsiflexion of bilateral feet against resistance. 2+ pedal pulses bilaterally. Straight leg rise with dorsiflexion negative bilaterally. +1 patellar and diminished achilles reflexes bilaterally. Facet loading test positive bilaterally. Pedro?s and Stinchfield tests are negative bilaterally. No groin pain with I/E hip rotations. Valsalva maneuver is positive. Back: no CVA tenderness Cervical Spine: cervical ROM normal and No Cervical spine tenderness Thoracic/Lumbar Spine: thoracic and lumbar spine normal to inspection, No Thoracic/lumbar spine scar(s), Lasegue's sign positive (left L5-S1 right L4-L5) bilateral and localized, pain with thoraco-lumbar ROM, paraspinal muscle tenderness, thoraco-lumbar ROM limited, No thoracic spinal tenderness and lumbar spinal tenderness (L4-S1) Sacroiliac joints: bilaterally nontender Extrem General: Yes capillary refill normal, Yes no clubbing, cyanosis or edema and Yes no calf tenderness Results Reviewed Results Reviewed: XR BILATERAL HIPS WITH AP PELVIS 06/03/22 CLINICAL INFORMATION: Pain COMPARISON: None TECHNIQUE: AP view of the pelvis with coned frontal and frog-leg lateral views of each hip were obtained. FINDINGS: Both femoral heads are well-seated within the respected acetabula. Degenerative changes are seen with mild osteophyte formation. I do not appreciate any cortical disruption or trabecular irregularity to suggest underlying occult fracture. Mild degenerative changes seen in the pelvis and visualized lower lumbar spine. Unremarkable bowel gas pattern. Vascular calcifications seen IMPRESSION: Mild degenerative changes but no acute fracture or dislocation seen. US arterial duplex BI w/ EVELIO 11/25/24 IMPRESSION: Right leg: Mild inflow disease throughout the interrogated vessels, pronounced in the dorsalis pedis artery. Left leg: Mild inflow disease throughout the interrogated vessels, pronounced in the dorsalis pedis artery. ANKLE-BRACHIAL INDEX: Right: 1.53 Left: 1.5 ANKLE PVR WAVEFORMS: Right: Abnormal Left: Abnormal XR lumbar spine 4V min 01/16/25 CLINICAL INFORMATION: Bilateral. Right-sided. Sciatica. TECHNIQUE: AP oblique and lateral views. COMPARISON: None FINDINGS: Multilevel syndesmophyte formation and marginal osteophyte formation and endplate sclerosis and decreased intervertebral disc axial skeleton. 4 mm retrolisthesis at L3-4. Facet joint hypertrophy at L5-S1. Mild levoconvex curvature. No acute cortical disruption. No lytic or blastic lesion. Vascular calcifications, aorta and iliac arteries. IMPRESSION: Multilevel thoracolumbar spondylosis resulting in grade 1 retrolisthesis L3-4. Assessment & Plan Assessment & Plan (1) Lumbar degenerative disc disease: Code(s): M51.369 - Other intervertebral disc degeneration, lumbar region without mention of lumbar back pain or lower extremity pain Category: Medical (2) Lumbosacral spondylosis: Code(s): M47.817 - Spondylosis without myelopathy or radiculopathy, lumbosacral region Category: Medical (3) Polyarthritis: Code(s): M13.0 - Polyarthritis, unspecified Category: Medical (4) Chronic low back pain with bilateral sciatica: Code(s): M54.41 - Lumbago with sciatica, right side; M54.42 - Lumbago with sciatica, left side; G89.29 - Other chronic pain Category: Medical Plan The patient will be scheduled for diagnostic injections to confirm the source of arthritic back pain and assess eligibility for further procedures such as radiofrequency ablation or peripheral spinal stimulation. Schedule diagnostic bilateral L3-L4 DR L5 medial branch blocks with local and fluoroscopy. Expectations, risks and benefits were reviewed. Patient is aware he will be contacted to schedule this procedure. Follow-up with Rheumatology is advised to further evaluate the potential autoimmune condition, with the suggestion to check for cancellations to expedite the appointment. The patient is advised with Primary care and Cardiology to further evaluate causes for fatigue and excessive daytime sleepiness. All questions and concerns have been answered and patient agreed with the treatment plan. Follow up after injections and sooner as needed. Patient was informed and verbally consented to the use of an ambient scribe for clinic note documentation during this visit. Coding Level of Care Code Est Pt Level 4 (11293) Complex EM visit Add On G2211 Diagnoses Lumbar degenerative disc disease M51.369 Lumbosacral spondylosis M47.817 Polyarthritis M13.0 Chronic low back pain with bilateral sciatica M54.41; M54.42; G89.29
[2025-01-30 08:52] VITALS: BP 113/57; PULSE 73; O2SAT 98; BMI 30.7
--- OUTSIDE RECORDS SUMMARY | 2025-01-30 09:04 | XMS_ITS | Clinical Summary ---
Author Organization [facility] Address [address] [place] [address] Phone Care Team Providers Care Orthodontist Assistant Name Role Phone Hi Lopez MD Primary [...] Payer (Ef fective 2017-Present) Name:Chad Angel Member ID:[id number] Relation to Subscriber:Self Name:Chad Angel Subscriber ID:[id number] Payer ID:[id number] Group ID:Not on file Type:Medicare Address: [employer] [address] MEDICARE PPO BLUE REPLACEMENT MEDICARE PART A & B MEDICARE PPO BLUE REPLACEMENT MEDICARE PART A & B Member Subscriber Plan / Payer ( fective 2017-Present) Name:Chad Angel Member ID:[id number] Relation to Subscriber:Self Name:Chad Angel Subscriber ID:[id number] Payer ID:[id number] Group ID:Not on file Type:Medicare Address: [facility] [employer] [facility] [address] MEDICARE PPO BLUE REPLACEMENT MEDICARE PART A & B Member Subscriber Plan / Payer (Ef fective 2017-Present) Name:Chad Angel Member ID:[id number] Relation to Subscriber:Self Name:Chad Angel Subscriber ID:[id number] Payer ID:[id number] Group ID:Not on file Type:Medicare Address: [employer] [address] MEDICARE PPO BLUE REPLACEMENT MEDICARE PART A & B Member Subscriber Plan / Payer (Ef fective 2017-Present) Name:Chad Angel Member ID:[id number] Relation to Subscriber:Self Name:Chad Angel Subscriber ID:[id number] Payer ID:[id number] Group ID:Not on file Type:Medicare Address: [employer] [address] [place] [address] [place] [address] MEDICARE PPO BLUE REPLACEMENT MEDICARE PART A & B Member Subscriber Plan / Payer (Ef fective 2017-Present) Name:Chad Angel Member ID:[id number] Relation to Subscriber:Self Name:Chad Angel Subscriber ID:[id number] Payer ID:[id number] Group ID:Not on file Type:Medicare Address: [employer] [address] [place] [address] [place] [address] MEDICARE PPO BLUE REPLACEMENT MEDICARE PART A & B MEDICARE PPO BLUE REPLACEMENT MEDICARE PART A & B Member Subscriber Plan / Payer ( fective 2017-Present) Name:Chad Angel Member ID:[id number] Relation to Subscriber:Self Name:Chad Angel Subscriber ID:[id number] Payer ID:[id number] Group ID:Not on file Type:Medicare Address: [employer] [address] [place] [address] [place] [address] MEDICARE PPO BLUE REPLACEMENT MEDICARE PART A & B [place] MED[place] BLUE REPLACEMENT Care Teams Orthodontist Assistant Relationship Specialty Start Date End Date Hi Lopez MD PCP - General 04/03/17 Additional Source Comments The information contained in this document represents components of the legal health record. It is not the complete legal health record.[facility]
--- OUTSIDE RECORDS SUMMARY | 2025-01-30 09:04 | XMS_ITS | Patient Health Record ---
Author Organization [facility] Kristian ilana Warren Address [address] [place] [address] Care Team Providers Care Environmental Compliance Engineer Name Role Phone Miguel Jasmine Primary Care Provider Unav miguel Chantal Pfeifferine Unavailable [phone] Allergies No Known Allergies Reason For Referral [...] Notes Problem Plantar fasciitis of right foot (34136603769551 101) Plantar fasciitis of right foot (M72.2) Active confirmed Problem Atherosclerosis of [place] artery of both lower extremities, with unspecified presence of clinical manifestation (I70.203) Active confirmed Q7(A), Q8(2B), Q9(1B,2C ) Problem Interstitial myositis (50147975) Interstitial myositis of right foot (M60.171) Active confirmed Vital Signs Blood pressure diastolic 65 mm Hg 12/19/2024 Height 5ft 7inch in 12/19/2024 Blood pressure systolic 130 mm Hg 12/19/2024 Weight 225 lbs 12/19/2024 BMI 35.24 kg/m2 12/19/2024 Encounters Encounter Location Date Provider Diagnosis [address] [address] 11/06/2024 Ana Coreasaker Pain in right foot M79.671 ; Plantar fasciitis of right foot M72.2 ; Calcaneal spur, right foot M77.31 ; Interstitial myositis of right foot M60.171 ; Bursitis of right foot M77.51 ; Atherosclerosis of [place] artery of both lower extremities, with unspecified presence of clinical manifestation I70.203 and Tinea unguium B35.[address] [address] 12/19/2024 Ana Margarette Pain in right foot M79.671 ; Plantar fasciitis of right foot M72.2 ; Calcaneal spur, right foot M77.31 ; Interstitial myositis of right foot M60.171 ; Bursitis of right foot M77.51 ; Atherosclerosis of [place] artery of both lower extremities, with unspecified presence of clinical manifestation I70.203 and Tinea unguium B35.[address] [address] 08/28/2024 Ana Pfeiffer [address] [address] 09/09/2024 Ana Pfeiffer Assessments Encounter Date Diagnosis [...] foot (ICD-10 - M77.51) 12/19/2024 Atherosclerosis of [place] artery of both lower extremities, with unspecified presence of clinical manifestation (ICD-10 - I70.203) Q7(A), Q8(2B), Q9(1B,2C) 11/06/2024 Tinea unguium (ICD-10 - B35.1) 12/19/2024 Tinea unguium (ICD-10 - B35.1) 11/06/2024 Atherosclerosis of [place] artery of both lower extremities, with unspecified [...] Insured Coverage Start Date Coverage End Date [facility] 65 Medicare Preferred [address] [place] [address] [id number] Chad Calixto Self - patient is the insured Medical (General) History Medical History History ICD Code Angina Arthritis Back,Hip,and Knee pain High Blood Pressure Replacement Heart Valves CAD Surgical History Surgery Date(Month/Year) Open Heart Sx 11/02/22 Hospitalization History Reason Date(Month/Year)
== END 2025-01-30 09:26 | disposition home or self-care (01) ==
LOC: HO.PMC 08:48
PROVIDERS: PCP Physician Assistant Medical; Visit Provider Nurse Practitioner Family
DX: M51.369 Other intervertebral disc degeneration, lumbar region without mention of lumbar back pain or lower extremity pain (principal); M47.817 Spondylosis without myelopathy or radiculopathy, lumbosacral region; M13.0 Polyarthritis, unspecified; M54.41 Lumbago with sciatica, right side; M54.42 Lumbago with sciatica, left side; G89.29 Other chronic pain
CPT/HCPCS: 99214; G2211

== ENCOUNTER → 2025-01-30 08:42 | Outpatient (BNVA) | payer MEDICARE, SELFPAY | PROVIDERS: PCP Physician Assistant Medical; Visit Provider Nurse Practitioner Family | DX: Z71.2 Person consulting for explanation of examination or test findings (principal); M51.369 Other intervertebral disc degeneration, lumbar region without mention of lumbar back pain or lower extremity pain; M47.817 Spondylosis without myelopathy or radiculopathy, lumbosacral region; M13.0 Polyarthritis, unspecified; M54.41 Lumbago with sciatica, right side; M54.42 Lumbago with sciatica, left side | CPT/HCPCS: 99212 ==

== ENCOUNTER 2025-02-12 07:45 | Outpatient (REF) | payer MEDICARE, SELFPAY ==
--- NOTE | ~2025-02-12 | MR_ITS ---
CLINICAL HISTORY: M54.41 - Lumbago with sciatica, right side Exam: MRI of the lumbar spine without intravenous contrast. Comparison: Radiographs january 16, 2025. Findings: Bony alignment of the lumbar vertebral bodies is anatomic. No acute fracture. Bone marrow signal intensity is diffusely heterogeneous, likely related to red marrow reconversion, potentially from anemia. Modic type 1 endplate changes are seen along the anterior aspect of the L2-3 disc space. The conus terminates at T12-L1. No abnormal signal intensity identified within the conus medullaris. No retroperitoneal mass lesion seen within the field of view. Partial bony ankylosis of the right sacroiliac joint anteriorly. No erosive change of the sacroiliac joints. Segmental analysis: L1-2: Mild disc desiccation without significant disc bulge. Mild facet joint degenerative change. Central canal and neural foramina are patent. L2-3: Disc desiccation with broad-based disc bulge, asymmetric to the right. Mild facet joint degenerative change. Central canal and neural foramina are patent. L3-4: Disc desiccation with a broad-based disc bulge. Moderate facet joint degenerative change with fluid in both facet joints. This results in [id number] narrowing of the lateral recesses bilaterally. Moderate bilateral neural foraminal narrowing. L4-5: Disc desiccation with broad-based disc bulge. There is moderate facet joint degenerative change with fluid in the facet joints. Central canal is patent. Moderate bilateral neural foraminal narrowing. L5-S1: No disc bulge or protrusion. Moderate to severe facet joint degenerative change. Central canal is patent. Neural foramina are patent. Impression: 1. No acute fracture. 2. Multilevel degenerative disc disease and degenerative facet disease as above with multilevel neural foraminal narrowing. This document has been electronically signed by: Jed Lieberman MD on 02/12/2025 10:04:35
--- OUTSIDE RECORDS SUMMARY | 2025-02-12 07:48 | XMS_ITS | Patient Health Record ---
Author Organization [facility] Kristian ilana Warren Address [address] [place] [address] Care Team Providers Care Institutional Nutrition Consultant Name Role Phone Miguel Jasmine Primary Care Provider Unav miguel Chantal Pfeifferine Unavailable [phone] Allergies No Known Allergies Reason For Referral [...] Notes Problem Plantar fasciitis of right foot ([id number] 101) Plantar fasciitis of right foot (M72.2) Active confirmed Problem Atherosclerosis of [place] artery of both lower extremities, with unspecified presence of clinical manifestation (I70.203) Active confirmed Q7(A), Q8(2B), Q9(1B,2C ) Problem Interstitial myositis (25490555) Interstitial myositis of right foot (M60.171) Active confirmed Vital Signs Blood pressure diastolic 65 mm Hg 12/19/2024 Height 5ft 7inch in 12/19/2024 Blood pressure systolic 130 mm Hg 12/19/2024 Weight 225 lbs 12/19/2024 BMI 35.24 kg/m2 12/19/2024 Encounters Encounter Location Date Provider Diagnosis [address] [address] 11/06/2024 Ana Coreasaker Pain in right foot M79.671 ; Plantar fasciitis of right foot M72.2 ; Calcaneal spur, right foot M77.31 ; Interstitial myositis of right foot M60.171 ; Bursitis of right foot M77.51 ; Atherosclerosis of [place] artery of both lower extremities, with unspecified presence of clinical manifestation I70.203 and Tinea unguium B35.[address] [address] 12/19/2024 Ana Margarette Pain in right foot M79.671 ; Plantar fasciitis of right foot M72.2 ; Calcaneal spur, right foot M77.31 ; Interstitial myositis of right foot M60.171 ; Bursitis of right foot M77.51 ; Atherosclerosis of [place] artery of both lower extremities, with unspecified presence of clinical manifestation I70.203 and Tinea unguium B35.[address] [address] 08/28/2024 Ana Pfeiffer [address] [address] 09/09/2024 Ana Pfeiffer Assessments Encounter Date Diagnosis [...] foot (ICD-10 - M77.51) 12/19/2024 Atherosclerosis of [place] artery of both lower extremities, with unspecified presence of clinical manifestation (ICD-10 - I70.203) Q7(A), Q8(2B), Q9(1B,2C) 11/06/2024 Tinea unguium (ICD-10 - B35.1) 12/19/2024 Tinea unguium (ICD-10 - B35.1) 11/06/2024 Atherosclerosis of [place] artery of both lower extremities, with unspecified [...] Insured Coverage Start Date Coverage End Date [facility] 65 Medicare Preferred [address] [place] [address] [id number] Chad Calixto Self - patient is the insured Medical (General) History Medical History History ICD Code Angina Arthritis Back,Hip,and Knee pain High Blood Pressure Replacement Heart Valves CAD Surgical History Surgery Date(Month/Year) Open Heart Sx 11/02/22 Hospitalization History Reason Date(Month/Year)
--- OUTSIDE RECORDS SUMMARY | 2025-02-12 07:48 | XMS_ITS | Clinical Summary ---
Author Organization [facility] Address [address] [place] [address] Phone Care Team Providers Care Propellant Assembler Name Role Phone Hi Lopez MD Primary [...] Payer (Ef fective 2017-Present) Name:Chad Angel Member ID:[id number] Relation to Subscriber:Self Name:Chad Angel Subscriber ID:[id number] Payer ID:[id number] Group ID:Not on file Type:Medicare Address: [employer] [address] MEDICARE PPO BLUE REPLACEMENT MEDICARE PART A & B MEDICARE PPO BLUE REPLACEMENT MEDICARE PART A & B Member Subscriber Plan / Payer ( fective 2017-Present) Name:Chad Angel Member ID:[id number] Relation to Subscriber:Self Name:Chad Angel Subscriber ID:[id number] Payer ID:[id number] Group ID:Not on file Type:Medicare Address: [facility] [employer] [facility] [address] MEDICARE PPO BLUE REPLACEMENT MEDICARE PART A & B Member Subscriber Plan / Payer (Ef fective 2017-Present) Name:Chad Angel Member ID:[id number] Relation to Subscriber:Self Name:Chad Angel Subscriber ID:[id number] Payer ID:[id number] Group ID:Not on file Type:Medicare Address: [employer] [address] MEDICARE PPO BLUE REPLACEMENT MEDICARE PART A & B Member Subscriber Plan / Payer (Ef fective 2017-Present) Name:Chad Angel Member ID:[id number] Relation to Subscriber:Self Name:Chad Angel Subscriber ID:[id number] Payer ID:[id number] Group ID:Not on file Type:Medicare Address: [employer] [address] [place] [address] [place] [address] MEDICARE PPO BLUE REPLACEMENT MEDICARE PART A & B Member Subscriber Plan / Payer (Ef fective 2017-Present) Name:Chad Angel Member ID:[id number] Relation to Subscriber:Self Name:Chad Angel Subscriber ID:[id number] Payer ID:[id number] Group ID:Not on file Type:Medicare Address: [employer] [address] [place] [address] [place] [address] MEDICARE PPO BLUE REPLACEMENT MEDICARE PART A & B MEDICARE PPO BLUE REPLACEMENT MEDICARE PART A & B Member Subscriber Plan / Payer ( fective 2017-Present) Name:Chad Angel Member ID:[id number] Relation to Subscriber:Self Name:Chad Angel Subscriber ID:[id number] Payer ID:[id number] Group ID:Not on file Type:Medicare Address: [employer] [address] [place] [address] [place] [address] MEDICARE PPO BLUE REPLACEMENT MEDICARE PART A & [place]UE REPLACEMENT Care Teams Propellant Assembler Relationship Specialty Start Date End Date Hi Lopez MD PCP - General 04/03/17 Additional Source Comments The information contained in this document represents components of the legal health record. It is not the complete legal health record.[facility]
--- OUTSIDE RECORDS SUMMARY | 2025-02-12 07:48 | XMS_ITS | Clinical Summary ---
Author Organization [facility] [address] [facility] Address [address] [place] [address] Phone Care Team Providers Care Hyperion Analyst Name Role Phone Miguel Pisano Primary Care Provider [phone] Allergies Active Allergy Reactions Criticality Noted Date Comments Oxycodone Hcl 01/11/2017 Other reaction(s): hallucinations Medications aspirin 81 mg EC tablet Take 1 tablet (81 mg total) by mouth 1 (one) time each day. 3 Active atorvastatin (LIPITOR) 80 mg tablet Take 1 tablet (80 mg total) by mouth 1 (one) time each day. 3 Active metoprolol succinate (TOPROL-XL) 25 mg 24 hr tablet Take 0.5 Tablets by mouth daily. 3 Active sildenafiL (VIAGRA) 100 mg tablet TAKE 1/2 TABLET BY MOUTH 1/2 HOUR PRIOR TO RELATIONS 4 Active nirmatrelvir-r itonavir (Paxlovid) 300 mg (150 mg x 2)-100 mg tablet therapy packIndication s:COVID-19 Take 3 tablets by mouth every 12 (twelve) hours for 5 days. Take number of ordered nirmatrelvir tablets (300 mg = 2 tablet) and ritonavir tablet (100 mg = 1 tablet) at the same time 30 tablet 5 01/23/20 25 Active Problems Problem Noted Date Diagnosed Date Enlarged prostate 01/31/2025 Renal cyst, right 01/31/2025 Liver lesion 01/31/2025 Bilateral chronic knee pain 01/31/2025 Tubular adenoma 01/31/2025 Bowel wall thickening 01/31/2025 Adrenal adenoma 03/07/2023 Coronary artery disease invo lving pilot station coronary artery of pilot station heart without angina pectoris 12/22/2022 3-vessel CAD 11/29/2022 Iron deficiency anemia 11/29/2022 Hyperlipidemia with target LDL less than 130 Overview (06/20/2024): IMO update Elevated PSA 06/07/2011 Lung mass 03/22/2010 Overview (06/20/2024): CT scan 10/28 - stable Hypertension 11/15/2007 Encounters Date Type Department Care Team Description 01/31/2025 11:30 AM EDT Office Visit Adult Medicine [address] [phone] Pavithra Correa PA Chronic fatigue (Primary Dx); Primary hypertension; Coronary artery disease involving pilot station coronary artery of pilot station heart without angina pectoris; Iron deficiency anemia, unspecified iron deficiency anemia type; Liver lesion; Renal cyst, right; Enlarged prostate; Adrenal nodule (CMS/HCC V24); Bowel wall thickening; Tubular adenoma; Bilateral chronic knee pain 01/30/2025 Telephone Adult Medicine [address] [phone] Miguel Pisano PA 01/17/2025 Telephone Adult Medicine [address] [phone] Miguel Pisano PA 01/15/2025 Telephone Adult Medicine [address] [phone] Miguel Pisano, PA from Last 3 Months Immunizations Name Administration Dates Next Due Moderna SARS-CoV-2 COVID-19, mRNA, LNP-S, preservative free 06/16/2022 Pneumococcal conjugate 13 va lent (Prevnar 13, PCV13) 2mo and older 02/04/2016 Pneumococcal polysaccharide 23 valent (Pneumovax 23) 2yo and older 05/24/2017 Td Tetanus diptheria (Tdvax) 7yo and older 11/22 Tdap Tetanus diptheria acell ular pertussis (Boostrix; Adacel) 7yo and older 11/15/2007 Zoster Live 12/06/2012 Surgical History Surgery Date Site/Laterality Comments CARPAL TUNNEL RELEASE PROCEDURE: HI NEUROPLASTY &/TRANSPOS MEDIAN NRV CARPAL TUNNE COLONOSCOPY 2005 PROCEDURE: HISTORICAL COLONOSCOPY; COMMENT: Dr. Bell OTHER SURGICAL HISTORY PROCEDURE: HISTORY OTHER; COMMENT: SEVERAL FATTY TYUMORS REMOVED COLONOSCOPY 02/16/2016 PROCEDURE: HISTORICAL COLONOSCOPY; COMMENT: medium flat cecal polyp, removed piecemeal. Pathology = tubular adenoma. ROTATOR CUFF REPAIR 10/14/2016 Right PROCEDURE: HISTORICAL ROTATOR CUFF REPAIR; COMMENT: yariel COLONOSCOPY 02/17/2017 PROCEDURE: HISTORICAL COLONOSCOPY; COMMENT: cecal polyp: SSA COLONOSCOPY 10/29/2020 PROCEDURE: HISTORICAL COLONOSCOPY; COMMENT: Solitary 5 mm polyp: Tubular adenoma. Medical History Medical History Date Comments Tobacco abuse 11/15/2007 DX:Tobacco abuse Hypertension 11/15/2007 DX:Hypertension Historical Medical DX 03/22/2010 DX:Pulmona ry nodule Basal cell carcinoma of skin 03/25/2015 DX: Basal cell carcinoma of skin History of basal cell carcinoma of skin 5 DX:History of basal cell carcinoma of skin; COMMENT: BCC 04/02 back (nodular) Family History Medical History Relation Name Comments Colon cancer Neg Hx Relation Name Status Comments Brother 1 Alive angioplasty brad nt Brother 2 Alive some type of ca ncer Daughter 1 Alive Healthy Daughter 2 Alive Healthy Father (Age 70) cancer in the neck, smoker Mother (Age 52) cancer br east Son Alive Healthy Social History Tobacco Use Types Packs/Day Years Used Date Smoking Tobacco: Former Cigarettes 2 44.4 0 12/13/1963 - 05/01/2008 Smokeless Tobacco: Never Tobacco Cessation:Counseling Given: Not Answered Alcohol Use Standard Drinks/Week Comments Yes 0 (1 standard drink = 0.6 oz pur e alcohol) Housing Instability Answer Date Recorde d Are you worried that in the next 2 months you may not have stable housing? No 01/31/2025 Food Access & Nutrition Answer Date Rec orded Do you have access to a vari ety of food including fruits and vegetables? Yes 01/31/2025 Health Literacy Answer Date Recorded How often do you need to hav e someone help you when you read instructions, pamphlets, or other written material from your doctor or pharmacy? Never 01/31/2025 Caregiver: How often do you need to have someone help you when you read instructions, pamphlets, or other written material from your doctor or pharmacy? Not on file 01/31/2025 Financial Risk Answer Date Recorded How hard is it for you to pa y for the very basics like food, housing, medical care, and air conditioning / heating? Not very hard 01/31/2025 Transportation Answer Date Recorded Has the lack of transportati on kept you from meetings, work, or from getting things needed for daily living? No Has the lack of transportati on kept you from medical appointments or from getting medications? No 01/31/2025 Social Isolation Answer Date Recorded How often do you feel lonely or isolated from th ose around you? Never 01/31/2025 Food Risk Answer Date Recorded Within the past 12 months we worried whether our food would run out before we got money to buy more. Never true 01/31/2025 Within the past 12 months th e food we bought just didn't last and we didn't have money to get more. Never true 01/31/2025 Dependent Care Answer Date Recorded Do you need help finding or paying for care for your loved ones. For example, children's tutor nursery or elderly care for an older adult? No 01/31/2025 Education Answer Date Recorded Do you think completing more education or training, like finishing a GED, going to college, or learning a trade, would be helpful for you? No 01/31/2025 Employment and Income Answer Date Recor ded During the last four weeks, have you been actively looking for work? No 01/31/2025 Living Situation Answer Date Recorded What is your living situation? 0 01/31/2025 Sex and Gender Information Value Date Recorded Sex Assigned at Not on file Legal Sex Male 3:52 AM EST Gender Identity Not on file Sexual Orientation Not on file Obstetrics History Last Filed Vital Signs Vital Sign Reading Time Taken Comments Blood Pressure 123/72 01/31/2025 11:07 AM EDT Pulse 66 01/31/2025 11:07 AM EDT Temperature 35.8 C (96.5 F) 01/31/2025 11:07 AM EDT Respiratory Rate 14 01/31/2025 11:07 AM EDT Oxygen Saturation 97% 01/31/2025 11:07 AM EDT Inhaled Oxygen Concentration - - Weight 102 kg (224 lb) 01/31/2025 11:07 AM EDT Height 180.3 cm (5' 11 ) 01/31/2025 11:07 AM EDT Body Mass Index 31.24 01/31/2025 11:07 AM EDT Plan of Treatment Upcoming Encounters Date Type Department Care Team (Late st Contact Info) Description 02/24/2025 10:00 AM EDT Appointment Radiology Department [address] [phone] Health Maintenance Due Date Last Done Comments Zoster Vaccines (1 of 2) 01/31/2013 12/06/2012 Hypertension/CHF/CAD Annual BMP Blood Test 11/30/2023 11/29/2022 Medicare Annual Wellness Visit 03/07/2024 03/07/2023 COVID-19 Vaccine ( season) 2024 03/27/2024, 06/16/2022, 07/12/2021, Additional history exists Influenza Vaccine (#1) 2025 03/22/2024, 2023 Falls Risk Assessment 08/27/2025 08/27/2024 Colorectal Cancer Screening: Colonoscopy 10/29/2025 10/29/2020, 10/29/2020, 02/16/2016 Social Influencers of Health Screening 01/31/2026 01/31/2025 DTaP,Tdap,and Td Vaccines (3 - Td or Tdap) 11/23/2027 11/22/2017, 11/15/2007 Cholesterol Screening (Lipid Panel) 11/30/2027 11/29/2022 Hepatitis C Screening Completed 07/04/2014 Abdominal Aortic Aneurysm (AAA) Screen Completed 02/05/2015 Pneumococcal Vaccine: 50+ Years Completed 05/24/2017, 02/04/2016 RSV Immunization Adult Patients Completed 11/18/2023 Depression Screening Completed 08/27/2024 HIB Vaccines Aged Out No longer eligi ble based on patient's age to complete this topic HPV Vaccines Aged Out No longer eligi ble based on patient's age to complete this topic Hepatitis A Vaccines Aged Out No long er eligible based on patient's age to complete this topic Hepatitis B Vaccines Aged Out No long er eligible based on patient's age to complete this topic IPV Vaccines Aged Out No longer eligi ble based on patient's age to complete this topic MMR Vaccines Aged Out No longer eligi ble based on patient's age to complete this topic Meningococcal ACWY Vaccine Aged Out N o longer eligible based on patient's age to complete this topic Meningococcal B Vaccine Aged Out No l onger eligible based on patient's age to complete this topic RSV Immunization Patients Under 20 months Aged Out No longer eligible based on patient's age to complete this topic Varicella Vaccines Aged Out No longer eligible based on patient's age to complete this topic Procedures Procedure Name Priority Date/Time Associated Diagnosis Comments CBC WITH AUTO DIFFERENTIAL Routine 01/31/2025 12:05 PM EDT Chronic fatigue Iron deficiency anemia, unspecified iron deficiency anemia type CBC AND DIFFERENTIAL Routine 01/31/2025 12:05 PM EDT Chronic fatigue Iron deficiency anemia, unspecified iron deficiency anemia type FERRITIN Routine 01/31/2025 12:05 PM EDT Chronic fatigue Iron deficiency anemia, unspecified iron deficiency anemia type FOLATE Routine 01/31/2025 12:05 PM EDT Chronic fatigue IRON AND TIBC Routine 01/31/2025 12:05 PM EDT Chronic fatigue Iron deficiency anemia, unspecified iron deficiency anemia type VITAMIN B12 Routine 01/31/2025 12:05 PM EDT Chronic fatigue HEPATIC FUNCTION PANEL Routine 01/31/2025 12:05 PM EDT Chronic fatigue THYROID STIMULATING HORMONE WITH REFLEX TO FREE T4 AND FREE T3 Routine 01/31/2025 12:05 PM EDT Primary hypertension Iron deficiency anemia, unspecified iron deficiency anemia type EXTERNAL CLINICAL LAB 01/16/2025 EXTERNAL CLINICAL LAB 01/16/2025 EXTERNAL XRAY REPORT 01/16/2025 ANNUAL BMP BLOOD TEST Routine 11/29/2022 LIPID PANEL Routine 11/29/2022 COLONOSCOPY Routine 10/29/2020 ABDOMINAL AORTIC ANEURYSM SCRREN Routine 02/05/2015 HEPATITIS C SCREENING Routine 07/04/2014 from Last 3 Months or Most Recently Relevant to Health Maintenance Results * Thyroid stimulating hormone with reflex to free t4 and free t3 (01/31/2025 12:05 PM EDT) Pathologist [facility] TSH 0.88 0.40 - 4.00 mcIU/mL LAB CHEMISTRY METHOD 01/31/2025 3:32 PM EDT [facility] Blood Venous blood specimen / Unknown Venipuncture / Unknown 01/31/2025 12:05 PM EDT 01/31/2025 12:05 PM EDT Pavithra CUMMINGS LAB BLOOD ORDERABLES Final Resul t [facility] [address] [place] [address], * CBC auto differential (01/31/2025 12:05 PM EDT) [facility] WBC 7.8 4.8 - 10.8 K/mcL LAB HEMETOLOGY METHOD 01/31/2025 2:19 PM EDT [facility] RBC 5.10 4.50 - 5.50 M/mcL LAB HEMETOLOGY METHOD 01/31/2025 2:19 PM EDT [facility] Hemoglobin 14.3 13.5 - 17.5 g/dL LAB HEMETOLOGY METHOD 01/31/2025 2:19 PM EDT [facility] Hematocrit 42.5 42.0 - 54.0 % LAB HEMETOLOGY METHOD 01/31/2025 2:19 PM EDT [facility] MCV 84.2 79.0 - 98.0 FL LAB HEMETOLOGY METHOD 01/31/2025 2:19 PM EDT [facility] MCH 28.3 27.0 - 32.0 pcg LAB HEMETOLOGY METHOD 01/31/2025 2:19 PM EDT [facility] MCHC 33.6 32.0 - 37.0 g/dL LAB HEMETOLOGY METHOD 01/31/2025 2:19 PM EDT [facility] RDW 13.5 11.0 - 15.0 % LAB HEMETOLOGY METHOD 01/31/2025 2:19 PM [facility] Platelets 317 130 - 400 K/mcL LAB HEMETOLOGY METHOD 01/31/2025 2:19 PM [facility] MPV 10.8 7.0 - 11.0 FL LAB HEMETOLOGY METHOD 01/31/2025 2:19 PM [facility] NRBC 0.0 <1.0 % LAB HEMETOLOGY METHOD 01/31/2025 2:19 PM [facility] NRBC Absolute 0.00 <0.10 K/mcL LAB HEMETOLOGY METHOD 01/31/2025 2:19 PM [facility] Neutrophils Relative 61.1 % LAB HEMETOLOGY METHOD 01/31/2025 2:19 PM [facility] Lymphocytes Relative 29.0 % LAB HEMETOLOGY METHOD 01/31/2025 2:19 PM [facility] Monocytes Relative 7.9 % LAB HEMETOLOGY METHOD 01/31/2025 2:19 PM [facility] Eosinophils Relative 0.8 % LAB HEMETOLOGY METHOD 01/31/2025 2:19 PM [facility] Basophils Relative 0.8 % LAB HEMETOLOGY METHOD 01/31/2025 2:19 PM [facility] Immature Granulocytes Relative 0.4 % LAB HEMETOLOGY METHOD 01/31/2025 2:19 PM EDT [facility] Neutrophils Absolute 4.74 1.50 - 7.00 K/mcL LAB HEMETOLOGY METHOD 01/31/2025 2:19 PM EDT [facility] Lymphocytes Absolute 2.25 1.00 - 5.00 K/mcL LAB HEMETOLOGY METHOD 01/31/2025 2:19 PM EDT [facility] Monocytes Absolute 0.61 0.20 - 1.00 K/mcL LAB HEMETOLOGY METHOD 01/31/2025 2:19 PM EDT [facility] Eosinophils Absolute 0.06 0.00 - 0.50 K/mcL LAB HEMETOLOGY METHOD 01/31/2025 2:19 PM EDT [facility] Basophils Absolute 0.06 0.00 - 0.20 K/mcL LAB HEMETOLOGY METHOD 01/31/2025 2:19 PM EDT [facility] Immature Granulocytes Absolute 0.03 0.00 - 0.03 K/mcL LAB HEMETOLOGY METHOD 01/31/2025 2:19 PM EDT [facility] Blood Venous blood specimen / Unknown Venipuncture / Unknown 01/31/2025 12:05 PM EDT 01/31/2025 12:05 PM EDT us Pavithra CUMMINGS LAB BLOOD ORDERABLES Final Resul t [facility] [address] [place] [address], * Iron and TIBC (01/31/2025 12:05 PM EDT) Iron 99 50 - 160 mcg/dL LAB CHEMISTRY METHOD 01/31/2025 2:59 PM EDT [facility] TIBC 295 250 - 450 mcg/dL LAB CHEMISTRY METHOD 01/31/2025 2:59 PM EDT [facility] Iron Saturation 34 20 - 50 % LAB CHEMISTRY METHOD 01/31/2025 2:59 PM EDT [facility] Blood Venous blood specimen / Unknown Venipuncture / Unknown 01/31/2025 12:05 PM EDT 01/31/2025 12:05 PM EDT Pavithra CUMMINGS LAB BLOOD ORDERABLES Final Resul t [facility] [address] [place] [address], [place] [phone] * Folate (01/31/2025 12:05 PM EDT) Folate 9.8 2.8 - 17.0 ng/ml LAB CHEMISTRY METHOD 01/31/2025 2:59 PM EDT [facility] Blood Venous blood specimen / Unknown Venipuncture / Unknown 01/31/2025 12:05 PM EDT 01/31/2025 12:05 PM EDT us Pavithra CUMMINGS LAB BLOOD ORDERABLES Final Resul t Performing Organization Address [facility]/ZIP Co de Phone Number [facility] [address] [place] [address], [place] [phone] * (ABNORMAL) Ferritin (01/31/2025 12:05 PM EDT) Ferritin 410(H) 26 - 388 ng/mL LAB CHEMISTRY METHOD 01/31/2025 2:59 PM EDT [facility] Blood Venous blood specimen / Unknown Venipuncture / Unknown 01/31/2025 12:05 PM EDT 01/31/2025 12:05 PM EDT us Pavithra CUMMINGS LAB BLOOD ORDERABLES Final Resul t [facility] [address] [place] [address], [place] [phone] * (ABNORMAL) Vitamin B12 (01/31/2025 12:05 PM EDT) [facility] Vitamin B-12 1,009(H) 250 - 900 pcg/mL LAB CHEMISTRY METHOD 01/31/2025 2:59 PM EDT [facility] Blood Venous blood specimen / Unknown Venipuncture / Unknown 01/31/2025 12:05 PM EDT 01/31/2025 12:05 PM EDT Pavithra CUMMINGS LAB BLOOD ORDERABLES Final Resul t [facility] [address] [place] [address], [place] [phone] * Hepatic function panel (01/31/2025 12:05 PM EDT) [facility] Total Protein 7.3 6.0 - 8.0 g/dL LAB CHEMISTRY METHOD 01/31/2025 2:59 PM EDT [facility] Albumin 4.3 3.2 - 5.0 g/dL LAB CHEMISTRY METHOD 01/31/2025 2:59 PM EDT [facility] Total Bilirubin 0.9 0.0 - 1.4 mg/dL LAB CHEMISTRY METHOD 01/31/2025 2:59 PM EDT [facility] Bilirubin, Direct 0.2 0.0 - 0.3 mg/dL LAB CHEMISTRY METHOD 01/31/2025 2:59 PM EDT [facility] Bilirubin, Indirect 0.7 0.0 - 1.1 mg/dL LAB CHEMISTRY METHOD 01/31/2025 2:59 PM EDT [facility] ALT (SGPT) 37 10 - 60 unit/L LAB CHEMISTRY METHOD 01/31/2025 2:59 PM EDT [facility] AST (SGOT) 28 10 - 42 unit/L LAB CHEMISTRY METHOD 01/31/2025 2:59 PM EDT [facility] Alkaline Phosphatase 86 42 - 121 unit/L LAB CHEMISTRY METHOD 01/31/2025 2:59 PM EDT [facility] Blood Venous blood specimen / Unknown Venipuncture / Unknown 01/31/2025 12:05 PM EDT 01/31/2025 12:05 PM EDT Result [facility] Pavithra CUMMINGS LAB BLOOD ORDERABLES Final Resul t [facility] [address] [place] [address], [place] [phone] * External Xray Report (01/16/2025) Anatomical Region Laterality Modality Radiographic Tori ging Result [facility] Provider [facility] IMG XR PROCEDURES Final Result * External clinical lab (01/16/2025) Only the most recent of2 resultswithin the time period is included. Provider [facility] LAB BLOOD ORDERABLES Fin al Result * Annual BMP Blood Test (11/29/2022) Pathologist [facility] Annual BMP Blood Test abstracted Result [facility] Historical Provider HEALTH MAINTENANCE Final Result * (ABNORMAL) Lipid panel (11/29/2022) [facility] LDL/HDL Ratio 3 0 - 4 Triglycerides 145 0 - 150 mg/dL Cholesterol 89 0 - 200 mg/dL HDL 35(A) >=40 mg/dL LDL Cholesterol 25 0 - 100 mg/dL Blood Venous blood specimen / Unknown Result [facility] LAB BLOOD ORDERABLES Mini l Result * Colonoscopy (10/29/2020) Pathologist [facility] Colonoscopy abstract [facility] Anatomical Region Laterality Modality Other Result [facility] Historical Provider HEALTH MAINTENANCE Final Result * Abdominal Aortic Aneurysm Screen (02/05/2015) Abdominal Aortic Aneurysm (AAA) Screening abstracted Anatomical Region Laterality Modality Other Historical Provider HEALTH MAINTENANCE Final Result * Hepatitis C Screening (07/04/2014) Hepatitis C Screening abstracted Historical Provider HEALTH MAINTENANCE Final Result from Last 3 Months or Most Recently Relevant to Health Maintenance Insurance [employer] - [place] MEDICARE ADVANTAGE Care Teams Hyperion Analyst Relationship Specialty Start Date End Date Miguel Pisano PA [address] [place] [address] PCP - General Internal Medicine 08/26/20
== END 2025-02-12 07:46 | disposition home or self-care (01) ==
LOC: HO.MRI 07:45
PROVIDERS: Visit Provider Nurse Practitioner Family
DX: M54.41 Lumbago with sciatica, right side (principal); M54.42 Lumbago with sciatica, left side; G89.29 Other chronic pain; M51.369 Other intervertebral disc degeneration, lumbar region without mention of lumbar back pain or lower extremity pain; M54.16 Radiculopathy, lumbar region
CPT/HCPCS: 72148

== ENCOUNTER → 2025-02-12 07:54 | Outpatient (BNV) | payer MEDICARE, SELFPAY | PROVIDERS: Visit Provider Radiology Diagnostic Radiology | DX: M51.369 Other intervertebral disc degeneration, lumbar region without mention of lumbar back pain or lower extremity pain (principal) | CPT/HCPCS: 72148 ==

== ENCOUNTER 2025-02-20 13:27 | Outpatient (AMB) | payer MEDICARE, SELFPAY ==
--- NOTE | 2025-02-20 13:29 | A.OFFVIS_ITS ---
Vital Signs 02/20/25 13:32 Height 5 ft 11 in Weight 228 lb 2 oz BMI 31.8 BP 115/58 L Blood Pressure Location Rt brachial Position Sitting Pulse 66 Pulse Source Monitor Pulse Oximetry (%) 97 Oxygen Delivery Method Room Air Intake Visit Reasons: MRI FOLLOW UP Allergies No Known Allergies Allergy (Verified 02/20/25 13:36) HPI Comments Details: The patient is a 74-year-old male presenting for follow up to discuss recent lumbar spine MRI results. He continues to endorse intractable low back pain radiating to both legs. The pain is localized to anterior thighs and into anterior shins and lateral lower legs with associated numbness and tingling and intermittent weakness with walking. The patient reports that the pain has been persistent and affects his mobility, limiting his ability to walk for more than 10 minutes. Pain impacts causing shuffling and leaning forward while walking. The lumbar spine MRI revealed multilevel arthritis, disc degeneration, and multilevel neural foraminal narrowing, particularly at the L3-L4 and L4-L5 levels. The MRI findings are consistent with the patient's symptoms of radicular leg pain. The patient has not experienced any bladder or bowel incontinence or saddle anesthesia. He reports being able to sit for one to two hours without significant discomfort but has to reposition often and does not wake up frequently at night due to back pain. Pain is reported at 5-7/10 with movements and walking. PRIOR: The patient is a 74-year-old male presenting with chronic back pain and discuss recent lumbar spine xray and lab results. The patient has a history of multilevel thoracic and lumbar spondylosis with first degree spondylolisthesis at L3 to L4, identified through imaging studies. Bone spurs and arthritis are also present, contributing to the patient's chronic back pain. The patient reports that the pain radiates to the legs, particularly affecting the thighs and knees, and is exacerbated by standing upright and walking. The patient has elevated ESR and C-reactive protein, positive MASOUD with speckled A and negative Rheumatoid factor, suggesting a possible autoimmune condition. The patient is scheduled to see a Senior Benefits Specialist in March for further evaluation but will reach out to them for a sooner appointment. The patient also reports he has been experiences fatigue and daytime sleeping. He will follow up with Primary care and Cardiology providers for this. Denies any recent cough, cold, infection, fever or any other significant changes in medical history since last office visit. PRIOR: The patient is a 74-year-old male presenting with back pain and bilateral leg pain. He reports a history of arthritis in both legs since the age of 9, but has never undergone a rheumatologic evaluation. Recently, he underwent a Vascular evaluation for his legs, which showed an ankle-brachial index of 1.5 bilaterally, considered artificially elevated due to palpable pulses. The Vascular provider deemed him stable from a peripheral vascular standpoint and referred him to rule out musculoskeletal causes for his leg pain. The patient describes his back pain as intermittent, worsening in the afternoon, and affecting his sleep and daily activities. The leg pain is severe, ranging from 9/10 in the afternoon to 3/10 in the morning, back pain 8/10 and is exace rbated by walking, bending, most daily activities and weather changes. He describes the pain as throbbing, stabbing, sharp, cramping, pinching, tugging, tingling, hurting, sore, aching, heavy, tiring, tightness, and squeezing. The patient has a history of coronary artery disease and underwent quintuple coronary artery bypass grafting in Oct, 2022. He has a history of smoking for 30 years, currently not smoking. Denies alcohol or marijuana consumption. He completed physical therapy with minimal improvement and has been taking Tylenol, which has not been helpful. Patient reports, prior back and leg pain flare up few months ago, he used to daily walk and do stretching for exercise, but with worsening back and leg pain, he is not able to walk more than 5 feet due to increasing leg, back pain with heaviness in his legs and numbness in his anterior thighs, shins and left calf. Reports constant burning pain in his legs and feet. - Onset: Intermittent back pain, worsening in the afternoon - Quality: Throbbing, stabbing, sharp, cramping, pinching, tugging, tingling, hurting, sore, aching, heavy, tiring, tightness, squeezing - Location: Back and bilateral legs - Radiation: Pain travels to the front of the thighs - Exacerbating factors: Weather changes, lifting heavy objects, bending, walking, changing positions - Relieving factors: Cold application, hot showers, rest, no relief with Tylenol - Interference: Affects sleep and daily activities - Affect: Pain affects sleep and daily activities - Analgesia: Currently taking Tylenol with minimal relief - Adverse Effects: None reported - Activities of Daily Living: Pain limits mobility and ability to perform daily tasks - Aberrant Drug Related Behaviors: None reported Oswestry Low Back Pain Disability Score=29 PFSH Medical History Ischemia of digits of hand CAD (coronary artery disease) Crescendo angina HTN (hypertension) Surgical History S/P CABG x 5 Hx of shoulder surgery Family History Father Cancer Mother Cancer Brother CAD (coronary artery disease) Social History Alcohol intake: never Patient Tobacco Use Status: Former Tobacco user Tobacco use type: Cigarette and Cigar Cigarette Packs Per Day: 1.5 Years Smoked: 30 Review of Systems Const All systems reviewed & are unremarkable except as noted in HPI and below Physical Exam Vital Signs: Last Vital Signs Pulse 66 02/20/25 13:32 BP 115/58 L 02/20/25 13:32 Pulse Ox 97 02/20/25 13:32 Oxygen Delivery Method Room Air 02/20/25 13:32 BMI result Body Mass Index 31.8 General: Appears afebrile. Alert and oriented. Mood and affect appropriate. Follows and participates in conversation appropriately. Respiratory effort is unlabored. No cough. Able to transition from sit to stand unassisted. Uses cane at home. Ambulates with bilaterally normal heel strike and toe off, increased pain with walking >5 feet General: Yes no CVA tenderness Back/Spine/Pelvis Other: Limited lumbar ROM due to pain. Lumbar flexion forward and bending reproduces moderate pain; lumbar extension reproduces moderate to sever pain. Demonstrates 5/5 right and 4/5 left strength of quadriceps bilaterally as well as flexion/dorsiflexion of bilateral feet against resistance. 2+ pedal pulses bilaterally. Straight leg rise with dorsiflexion positive bilaterally. +1 patellar and diminished achilles reflexes bilaterally. Facet loading test positive bilaterally. Pedro?s and Stinchfield tests are negative bilaterally. No groin pain with I/E hip rotations. Valsalva maneuver is positive. Back: no CVA tenderness Cervical Spine: cervical ROM normal and No Cervical spine tenderness Thoracic/Lumbar Spine: thoracic and lumbar spine normal to inspection, No Thoracic/lumbar spine scar(s), Lasegue's sign positive (left>right) bilateral and localized, pain with thoraco-lumbar ROM, paraspinal muscle tenderness, thoraco-lumbar ROM limited, No thoracic spinal tenderness and lumbar spinal tenderness (L4-S1) Pelvis: no sciatic notch tenderness Sacroiliac joints: bilaterally nontender Extrem General: Yes capillary refill normal, Yes no clubbing, cyanosis or edema and Yes no calf tenderness Results Reviewed Results Reviewed: XR lumbar spine 4V min 01/16/25 CLINICAL INFORMATION: Bilateral. Right-sided. Sciatica. TECHNIQUE: AP oblique and lateral views. COMPARISON: None FINDINGS: Multilevel syndesmophyte formation and marginal osteophyte formation and endplate sclerosis and decreased intervertebral disc axial skeleton. 4 mm retrolisthesis at L3-4. Facet joint hypertrophy at L5-S1. Mild levoconvex curvature. No acute cortical disruption. No lytic or blastic lesion. Vascular calcifications, aorta and iliac arteries. IMPRESSION: Multilevel thoracolumbar spondylosis resulting in grade 1 retrolisthesis L3-4. MR lumbar spine wo con 02/12/25 CLINICAL HISTORY: M54.41 - Lumbago with sciatica, right side Exam: MRI of the lumbar spine without intravenous contrast. Comparison: Radiographs january 16, 2025. Findings: Bony alignment of the lumbar vertebral bodies is anatomic. No acute fracture. Bone marrow signal intensity is diffusely heterogeneous, likely related to red marrow reconversion, potentially from anemia. Modic type 1 endplate changes are seen along the anterior aspect of the L2-3 disc space. The conus terminates at T12-L1. No abnormal signal intensity identified within the conus medullaris. No retroperitoneal mass lesion seen within the field of view. Partial bony ankylosis of the right sacroiliac joint anteriorly. No erosive change of the sacroiliac joints. Segmental analysis: L1-2: Mild disc desiccation without significant disc bulge. Mild facet joint degenerative change. Central canal and neural foramina are patent. L2-3: Disc desiccation with broad-based disc bulge, asymmetric to the right. Mild facet joint degenerative change. Central canal and neural foramina are patent. L3-4: Disc desiccation with a broad-based disc bulge. Moderate facet joint degenerative change with fluid in both facet joints. This results in gknj-ev-[id number] narrowing of the lateral recesses bilaterally. Moderate bilateral neural foraminal narrowing. L4-5: Disc desiccation with broad-based disc bulge. There is moderate facet joint degenerative change with fluid in the facet joints. Central canal is patent. Moderate bilateral neural foraminal narrowing. L5-S1: No disc bulge or protrusion. Moderate to severe facet joint degenerative change. Central canal is patent. Neural foramina are patent. IMPRESSION: 1. No acute fracture. 2. Multilevel degenerative disc disease and degenerative facet disease as above with multilevel neural foraminal narrowing. Assessment & Plan Assessment & Plan (1) Lumbar degenerative disc disease: Code(s): M51.369 - Other intervertebral disc degeneration, lumbar region without mention of lumbar back pain or lower extremity pain Category: Medical (2) Chronic low back pain with bilateral sciatica: Code(s): M54.41 - Lumbago with sciatica, right side; M54.42 - Lumbago with sciatica, left side; G89.29 - Other chronic pain Category: Medical (3) Lumbar radiculopathy: Code(s): M54.16 - Radiculopathy, lumbar region Category: Medical (4) Lumbosacral spondylosis: Code(s): M47.817 - Spondylosis without myelopathy or radiculopathy, lumbosacral region Category: Medical Qualifiers: Spinal osteoarthritis complication: with radiculopathy Qualified Code(s): M47.27 - Other spondylosis with radiculopathy, lumbosacral region Plan I discussed with the patient the findings of the lumbar spine MRI, which showed multilevel arthritis, disc degeneration, and multilevel neuroforaminal stenosis, particularly at L3-L4 and L4-L5. We talked about the option of a steroidal injection to alleviate radicular leg pain, with the understanding that it could provide relief for up to three months. I explained that if the injection does not provide sufficient relief, a referral to a Neurosurgeon for potential surgical decompression might be necessary. Schedule bilateral L3-L4 TFESI with local and fluoroscopy. Expectations, risks and benefits were reviewed. Patient is aware he will be contacted to schedule this procedure. The patient is advised to hold baby aspirin for 7 days prior to the procedure, pending approval from his [place], Dr. Costa. All questions and concerns have been answered and patient agreed with the treatment plan. Follow up after injections and sooner as needed. Patient was informed and verbally consented to the use of an ambient scribe for clinic note documentation during this visit. Coding Level of Care Code Est Pt Level 4 (87924) Complex EM visit Add On G2211 Diagnoses Lumbar degenerative disc disease M51.369 Chronic low back pain with bilateral sciatica M54.41; M54.42; G89.29 Lumbar radiculopathy M54.16 Osteoarthritis of spine with radiculopathy, lumbosacral region M47.27 Spinal osteoarthritis complication: with radiculopathy
[2025-02-20 13:32] VITALS: BP 115/58; PULSE 66; O2SAT 97; BMI 31.8
--- OUTSIDE RECORDS SUMMARY | 2025-02-20 14:44 | XMS_ITS | Patient Health Record ---
Author Organization [facility] Kristian ilana Warren Address [address] [place] [address] Care Team Providers Care Baker Test Name Role Phone Miguel Jasmine Primary Care Provider Unav miguel Chantal Pfeifferine Unavailable [phone] Allergies No Known Allergies Reason For Referral [...] Notes Problem Plantar fasciitis of right foot ([id number] ) Plantar fasciitis of right foot (M72.2) Active confirmed Problem Bilateral atherosclerosis of arteries of lower limbs (disorder) (80728247537032293 ) Atherosclerosis of morongo artery of both lower extremities, with unspecified presence of clinical manifestation (I70.203) Active confirmed Q7(A), Q8(2B), Q9(1B,2 C) Problem Interstitial myositis (76980799) Interstitial myositis of right foot (M60.171) Active confirmed Vital Signs Blood pressure diastolic 65 mm Hg 12/19/2024 Height 5ft 7inch in 12/19/2024 Blood pressure systolic 130 mm Hg 12/19/2024 Weight 225 lbs 12/19/2024 BMI 35.24 kg/m2 12/19/2024 Encounters Encounter Location Date Provider Diagnosis [address] [address] 11/06/2024 Ana Margarette Pain in right foot M79.671 ; Plantar fasciitis of right foot M72.2 ; Calcaneal spur, right foot M77.31 ; Interstitial myositis of right foot M60.171 ; Bursitis of right foot M77.51 ; Atherosclerosis of morongo artery of both lower extremities, with unspecified presence of clinical manifestation I70.203 and Tinea unguium B35.[address] [address] 12/19/2024 Ana Margarette Pain in right foot M79.671 ; Plantar fasciitis of right foot M72.2 ; Calcaneal spur, right foot M77.31 ; Interstitial myositis of right foot M60.171 ; Bursitis of right foot M77.51 ; Atherosclerosis of morongo artery of both lower extremities, with unspecified presence of clinical manifestation I70.203 and Tinea unguium B35.[address] [address] 08/28/2024 Ana Pfeiffer [address] [address] 09/09/2024 Ana Pfeiffer Assessments Encounter Date Diagnosis [...] foot (ICD-10 - M77.51) 12/19/2024 Atherosclerosis of morongo artery of both lower extremities, with unspecified presence of clinical manifestation (ICD-10 - I70.203) Q7(A), Q8(2B), Q9(1B,2C) 11/06/2024 Tinea unguium (ICD-10 - B35.1) 12/19/2024 Tinea unguium (ICD-10 - B35.1) 11/06/2024 Atherosclerosis of morongo artery of both lower extremities, with unspecified [...] Insured Coverage Start Date Coverage End Date [employer] 65 Medicare Preferred [address] [place] [address] [id number] Chad Calixto Self - patient is the insured Medical (General) History Medical History History ICD Code Angina Arthritis Back,Hip,and Knee pain High Blood Pressure Replacement Heart Valves CAD Surgical History Surgery Date(Month/Year) Open Heart Sx 11/02/22 Hospitalization History Reason Date(Month/Year)
--- OUTSIDE RECORDS SUMMARY | 2025-02-20 14:44 | XMS_ITS | Clinical Summary ---
Author Organization [facility] Address [address] [place] [address] Phone Care Team Providers Care Bung Sewer Name Role Phone Hi Lopez MD Primary [...] ZOSTER VACCINES (2 of 3) 01/31/2013 12/06/2012 RSV VACCINE (1 - 1-dose 75+ series) 2024 INFLUENZA VACCINE (#1) 2025 COVID-19 VACCINE (2 - 2024-2 6 season) 2025 12/09/2020 Adult Td,Tdap Booster 11/23/2027 11/22/2017 , 11/15/2007 [...] file Insurance MEDICARE PART A & B MEDICARE PPO [...] [place] BLUE REPLACEMENT Care Teams Bung Sewer Relationship Specialty Start Date End Date Hi Lopez MD PCP - General 04/03/17 Additional Source Comments The information contained in this document represents components of the legal health record. It is not the complete legal health record.[facility]
--- OUTSIDE RECORDS SUMMARY | 2025-02-20 14:44 | XMS_ITS | Encounter Summary ---
Author Organization [facility] Address [address] [place] [address] Care Team Providers Care Shaker Out Name Role Phone Miguel Peñaloza Primary Care Provider [phone] Reason for Visit * Reason Onset Date Comments Results 02/13/2025 Encounter Details Date Type Department Care Team ([facility] Contact Info) Description 02/13/2025 Telephone Adult Medicine [address] [phone] Dorcas Willis MA Social History Tobacco Use Types Packs/Day Years [...] care for your loved ones. 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 [...] as of this encounter Progress Notes * Maeve Albert - 02/18/2025 1:22 PM EDT Patients is calling in please advise. * Kathy Reyes MA - 02/14/2025 3:20 PM EDT Called pt lvm to return my phone call. * EMILIANO Walton - 02/14/2025 11:03 AM EDT Please contact patient about results. * EMILIANO Walton - 02/13/2025 9:32 AM EDT Please see result note. More information is needed. Patient with history of HUEY and was reportedly not taking any multivitamin or iron supplement. However complete blood count is without anemia. Serum iron, total iron-binding capacity and percent iron saturation normal. Ferritin, stored iron component, is actually mildlyelevated. Please reach out to patient and check again if he is taking any multivitamin or iron containing supplements. Thyroid-stimulating hormone level normal. Liver function normal. Folic acid normal. B12 mildly elevated. Is he taking a B12 supplement? EMILIANO Walton * Dorcas Willis MA - 02/13/2025 9:06 AM EDT Inform patient: ANY URGENT OR ABNORMAL RESULTS WIILL RESULT IN A CALL BACK TO THE PATIENT CARLOS. Type of test: :BLOODWORK Date test was performed: 01/31/25 Where was the test performed: [facility] Who ordered this test?: Dayron FIORE Is the doctor here today?: NO MIGUEL PEÑALOZA IS NOT IN TODAY. Can the message wait until the doctor returns?: no IF PATIENT'S PCP IS NOT IN INSTRUCT PATIENT THAT THEY WILL RECEIVE A CALL BACK WHEN THE PCP IS IN THE OFFICE NEXT. documented in this encounter Plan of Treatment Not on file documented as of this encounter Visit Diagnoses Not on filedocumented in this encounter Additional Health Concerns Assessment Noted Time PHQ-9 Depression Total Score: 0 08/28/19 25 1:58 PM EDT documented as of this encounter Care Teams Shaker Out Relationship Specialty Start Date End Date Miguel Peñaloza PA [address] [facility] [place] [address] PCP - General Internal Medicine 08/26/20 documented as of this encounter
--- OUTSIDE RECORDS SUMMARY | 2025-02-20 14:45 | XMS_ITS | Clinical Summary ---
Author Organization [facility] Address [address] [place] [address] Phone Care Team Providers Care Training Consultant Name Role Phone Miguel Pisano Primary Care Provider [phone] Allergies Active Allergy Reactions Criticality Noted Date [...] adenoma 03/07/2023 Coronary artery disease invo lving pechanga coronary artery of pechanga heart without angina pectoris 12/22/2022 3-vessel CAD 11/29/2022 Iron deficiency anemia 11/29/2022 Hyperlipidemia with target LDL less than 130 Overview (06/20/2024): IMO update Elevated PSA 06/07/2011 Lung mass 03/22/2010 Overview (06/20/2024): CT scan 10/28 - stable Hypertension 11/15/2007 Encounters Date Type Department Care Team Description 02/13/2025 Telephone Adult Medicine [address] [phone] [place] 01/31/2025 11:30 AM EDT Office Visit Adult Medicine [address] [phone] Pavithra Correa PA Chronic fatigue (Primary Dx); Primary hypertension; Coronary artery disease involving pechanga coronary artery of pechanga heart without angina pectoris; Iron deficiency anemia, unspecified iron deficiency anemia type; Liver lesion; Renal cyst, right; Enlarged prostate; Adrenal nodule (CMS/HCC V24); Bowel wall thickening; Tubular adenoma; Bilateral chronic knee pain 01/30/2025 Telephone Adult Medicine [address] [phone] Miguel Pisano PA 01/17/2025 Telephone Adult Medicine [address] [phone] Miguel Pisano PA 01/15/2025 Telephone Adult Medicine [address] [phone] Miguel Pisano PA from Last 3 Months Immunizations Name [...] the neck, smoker Mother (Age 52) cancer rome ast Son Alive Healthy Social History Tobacco Use [...] care for your loved ones. For example, child care team lead or elderly care for an older adult? [...] 01/31/2025 11:07 AM EDT Plan of Treatment Health Maintenance Due Date Last Done Comments Zoster Vaccines (1 of 2) 01/31/2013 12/06/2012 Hypertension/CHF/CAD Annual BMP Blood Test 11/30/2023 11/29/2022 Medicare Annual Wellness Visit 03/07/2024 03/07/2023 COVID-19 Vaccine ( season) 2025 03/27/2024, 06/16/2022, 07/12/2021, Additional history exists Influenza [...] and free t3 (01/31/2025 12:05 PM EDT) [facility] TSH 0.88 0.40 - 4.00 mcIU/mL LAB CHEMISTRY METHOD 01/31/2025 3:32 PM EDT [facility] Blood Venous blood specimen / Unknown Venipuncture / Unknown 01/31/2025 12:05 PM EDT 01/31/2025 12:05 PM EDT Pavithra CUMMINGS LAB BLOOD ORDERABLES Final Resul t [facility] [address] [place] [address], [place] [phone] * CBC auto differential (01/31/2025 12:05 PM EDT) [facility] WBC 7.8 4.8 - 10.8 K/mcL LAB HEMETOLOGY METHOD 01/31/2025 2:19 PM EDT [facility] RBC 5.10 4.50 - 5.50 M/mcL LAB HEMETOLOGY METHOD 01/31/2025 2:19 PM EDT [facility] Hemoglobin 14.3 13.5 - 17.5 g/dL LAB HEMETOLOGY METHOD 01/31/2025 2:19 PM EDT [facility] Hematocrit 42.5 42.0 - 54.0 % LAB HEMETOLOGY METHOD 01/31/2025 2:19 PM EDT [facility] MCV 84.2 79.0 - 98.0 FL LAB HEMETOLOGY METHOD 01/31/2025 2:19 PM EDT [facility] MCH 28.3 27.0 - 32.0 pcg LAB HEMETOLOGY [facility] MCHC 33.6 32.0 - 37.0 g/dL LAB HEMETOLOGY METHOD 01/31/2025 2:[address] [facility] RDW 13.5 11.0 - 15.0 % LAB HEMETOLOGY METHOD 01/31/2025 2:19 PM EDT [facility] Platelets 317 130 - 400 K/mcL LAB HEMETOLOGY METHOD 01/31/2025 2:[address] [facility] MPV 10.8 7.0 - 11.0 FL LAB HEMETOLOGY METHOD 01/31/2025 2:[address] [facility] NRBC 0.0 <1.0 % LAB HEMETOLOGY METHOD [facility] NRBC Absolute 0.00 <0.10 K/mcL LAB HEMETOLOGY METHOD 01/31/2025 2:[address] [facility] Neutrophils Relative 61.1 % LAB HEMETOLOGY METHOD 01/31/2025 2:[address] [facility] Lymphocytes Relative 29.0 % LAB HEMETOLOGY METHOD 01/31/2025 2:[address] [facility] Monocytes Relative 7.9 % LAB HEMETOLOGY METHOD 01/31/2025 2:[address] [facility] Eosinophils Relative 0.8 % LAB HEMETOLOGY METHOD 01/31/2025 2:[address] [facility] Basophils Relative 0.8 % LAB HEMETOLOGY METHOD 01/31/2025 2:[address] [facility] Immature Granulocytes Relative 0.4 % LAB HEMETOLOGY METHOD 01/31/2025 2:19 PM EDT [facility] Neutrophils Absolute 4.74 1.50 - 7.00 K/mcL LAB HEMETOLOGY METHOD 01/31/2025 2:19 PM EDT [facility] Lymphocytes Absolute 2.25 1.00 - 5.00 K/mcL LAB HEMETOLOGY METHOD 01/31/2025 2:19 PM EDT [facility] Monocytes Absolute 0.61 0.20 - 1.00 K/mcL LAB HEMETOLOGY METHOD 01/31/2025 2:19 PM EDT [facility] Eosinophils Absolute 0.06 0.00 - 0.50 K/mcL LAB HEMETOLOGY METHOD 01/31/2025 2:19 PM EDT [facility] Basophils Absolute 0.06 0.00 - 0.20 K/mcL LAB HEMETOLOGY METHOD 01/31/2025 2:19 PM EDT [facility] Immature Granulocytes Absolute 0.03 0.00 - 0.03 K/mcL LAB HEMETOLOGY METHOD 01/31/2025 2:19 PM EDT [facility] Blood Venous blood specimen / Unknown Venipuncture / Unknown 01/31/2025 12:05 PM EDT 01/31/2025 12:05 PM EDT us Pavithra CUMMINGS LAB BLOOD ORDERABLES Final Resul t [facility] [address] [place] [address], * Iron and TIBC (01/31/2025 12:05 PM EDT) Iron 99 50 - 160 mcg/dL LAB CHEMISTRY METHOD 01/31/2025 2:59 PM EDT [facility] TIBC 295 250 - 450 mcg/dL LAB CHEMISTRY METHOD 01/31/2025 2:59 PM EDT [facility] Iron Saturation 34 20 - 50 % LAB CHEMISTRY METHOD 01/31/2025 2:59 PM EDT [facility] Blood Venous blood specimen / Unknown Venipuncture / Unknown 01/31/2025 12:05 PM EDT 01/31/2025 12:05 PM EDT Pavithra CUMMINGS LAB BLOOD ORDERABLES Final Resul t Performing Organization Address [facility] de Phone Number [facility] [address] [place] [address], [place] [phone] * Folate (01/31/2025 12:05 PM EDT) Folate 9.8 2.8 - 17.0 ng/ml LAB CHEMISTRY METHOD 01/31/2025 2:59 PM EDT [facility] Blood Venous blood specimen / Unknown Venipuncture / Unknown 01/31/2025 12:05 PM EDT 01/31/2025 12:05 PM EDT Pavithra CUMMINGS LAB BLOOD ORDERABLES Final Resul t Performing Organization Address [facility] de Phone Number [facility] [address] [place] [address], [place] [phone] * (ABNORMAL) Ferritin (01/31/2025 12:05 PM EDT) Ferritin 410(H) 26 - 388 ng/mL LAB CHEMISTRY METHOD 01/31/2025 2:59 PM EDT [facility] Blood Venous blood specimen / Unknown Venipuncture / Unknown 01/31/2025 12:05 PM EDT 01/31/2025 12:05 PM EDT Pavithra CUMMINGS LAB BLOOD ORDERABLES Final Resul t Performing Organization Address [facility]/ZIP Co de Phone Number [facility] [address] [place] [address], [place] [phone] * (ABNORMAL) Vitamin B12 (01/31/2025 12:05 PM EDT) [facility] Vitamin B-12 1,009(H) 250 - 900 pcg/mL LAB CHEMISTRY METHOD 01/31/2025 2:59 PM EDT [facility] Blood Venous blood specimen / Unknown Venipuncture / Unknown 01/31/2025 12:05 PM EDT 01/31/2025 12:05 PM EDT Pavithra CUMMINGS LAB BLOOD ORDERABLES Final Resul t [facility] [address] [place] [address], [place] [phone] * Hepatic function panel (01/31/2025 12:05 PM EDT) [facility] Total Protein 7.3 6.0 - 8.0 g/dL LAB CHEMISTRY METHOD 01/31/2025 2:59 PM EDT [facility] Albumin 4.3 3.2 - 5.0 g/dL LAB CHEMISTRY METHOD 01/31/2025 2:59 PM EDT [facility] Total Bilirubin 0.9 0.0 - 1.4 mg/dL LAB CHEMISTRY METHOD 01/31/2025 2:59 PM EDT [facility] Bilirubin, Direct 0.2 0.0 - 0.3 mg/dL LAB CHEMISTRY METHOD 01/31/2025 2:59 PM EDT [facility] Bilirubin, Indirect 0.7 0.0 - 1.1 mg/dL LAB CHEMISTRY METHOD 01/31/2025 2:59 PM EDT [facility] ALT (SGPT) 37 10 - 60 unit/L LAB CHEMISTRY METHOD 01/31/2025 2:59 PM EDT [facility] AST (SGOT) 28 10 - 42 unit/L LAB CHEMISTRY METHOD 01/31/2025 2:59 PM EDT [facility] Alkaline Phosphatase 86 42 - 121 unit/L LAB CHEMISTRY METHOD 01/31/2025 2:59 PM EDT [facility] Blood Venous blood specimen / Unknown Venipuncture / Unknown 01/31/2025 12:05 PM EDT 01/31/2025 12:05 PM EDT Result [facility] Pavithra CUMMINGS LAB BLOOD ORDERABLES Final Resul t [facility] [address] [place] [address], [place] [phone] * External Xray Report (01/16/2025) Anatomical Region Laterality Modality Radiographic Tori ging Result [facility] Provider [facility] IMG XR PROCEDURES Final Result * External clinical lab (01/16/2025) Only the most recent of2 resultswithin the time period is included. Provider [facility] LAB BLOOD ORDERABLES Fin al Result * Annual BMP Blood Test (11/29/2022) [facility] Annual BMP Blood Test abstracted Result [facility] Historical Provider HEALTH MAINTENANCE Final Result * (ABNORMAL) Lipid panel (11/29/2022) [facility] LDL/HDL Ratio 3 0 - 4 Triglycerides 145 0 - 150 mg/dL Cholesterol 89 0 - 200 mg/dL HDL 35(A) >=40 mg/dL LDL Cholesterol 25 0 - 100 mg/dL Blood Venous blood specimen / Unknown Result [facility] Historical Provider LAB BLOOD ORDERABLES Mini l Result * Colonoscopy (10/29/2020) Pathologist [facility] Colon[facility] Anatomical Region Laterality Modality Other Historical Provider HEALTH MAINTENANCE Final Result * Abdominal Aortic Aneurysm Screen (02/05/2015) Abdominal Aortic Aneurysm (AAA) Screening abstracted Anatomical Region Laterality Modality Other Historical Provider HEALTH MAINTENANCE Final Result * Hepatitis C Screening (07/04/2014) Hepatitis C Screening abstracted us Historical Provider HEALTH MAINTENANCE Final Result from Last 3 Months or Most Recently Relevant to Health Maintenance Insurance BLUE CROSS - [place] MEDICARE ADVANTAGE Care Teams Training Consultant Relationship Specialty Start Date End Date Miguel Pisano PA [address] [place] [address] PCP - General Internal Medicine 08/26/20
== END 2025-02-20 13:56 | disposition home or self-care (01) ==
LOC: HO.PMC 13:28
PROVIDERS: Visit Provider Nurse Practitioner Family
DX: M51.369 Other intervertebral disc degeneration, lumbar region without mention of lumbar back pain or lower extremity pain (principal); M54.41 Lumbago with sciatica, right side; M54.42 Lumbago with sciatica, left side; G89.29 Other chronic pain; M54.16 Radiculopathy, lumbar region; M47.27 Other spondylosis with radiculopathy, lumbosacral region
CPT/HCPCS: 99214; G2211

== ENCOUNTER → 2025-02-20 13:27 | Outpatient (BNVA) | payer MEDICARE, SELFPAY | PROVIDERS: Visit Provider Nurse Practitioner Family | DX: M54.41 Lumbago with sciatica, right side (principal); M54.42 Lumbago with sciatica, left side; G89.29 Other chronic pain; M47.27 Other spondylosis with radiculopathy, lumbosacral region; M51.369 Other intervertebral disc degeneration, lumbar region without mention of lumbar back pain or lower extremity pain | CPT/HCPCS: 99212 ==

== ENCOUNTER 2025-04-08 09:00 | Outpatient (AMB) | payer MEDICARE, SELFPAY ==
--- NOTE | 2025-04-08 09:22 | A.OFFVIS_ITS ---
Vital Signs 04/08/25 09:33 Height 5 ft 11 in Weight 229 lb 4.492 oz BMI 32.0 BP 120/70 Blood Pressure Location Rt brachial Position Sitting Pulse 74 Pulse Source Pulse Oximeter Pulse Oximetry (%) 98 Oxygen Delivery Method Room Air Intake Visit Reasons: Polyarthritis Intake Note: New patient presents for Polyarthritis. Allergies No Known Allergies Allergy (Verified 04/08/25 09:33) HPI Comments Details: Patient is a 74-year-old male with hyperlipidemia, hypertension complicated by peripheral arterial disease and coronary artery disease here today for evaluation of polyarticular joint pain Patient initially presented to pain management December 2024 complaining of back pain and bilateral leg pain. Underwent vascular evaluation of his legs which showed an ankle-brachial index of 1.5 bilaterally but this was considered artificially elevated due to palpable pulses and vascular deemed him stable from a peripheral vascular standpoint. Workup from pain management included x-ray and MRI of the lumbar spine which showed multilevel degenerative disc disease. Currently undergoing eval for steroid injection, scheduled for next week Denies headaches, blurry vision or loss of vision No stiffness in the shoulders or in the hips Complains of back pain with radicular symptoms and bilateral knee pain No weight loss or night sweats No difficulty with raising hands above head or getting up from a seated position [facility] Medical History Ischemia of digits of hand CAD (coronary artery disease) Crescendo angina HTN (hypertension) Surgical History S/P CABG x 5 Hx of shoulder surgery Family History Father Cancer Mother Cancer Brother CAD (coronary artery disease) Social History Alcohol intake: never Patient Tobacco Use Status: Former Tobacco user Tobacco use type: Cigarette and Cigar Cigarette Packs Per Day: 1.5 Years Smoked: 30 Review of Systems Narrative Review of Systems Constitutional: Denies fever, chills, weight loss ENT: Denies vision changes, eye pain or eye redness, dental caries, dry mouth GI: Denies nausea, vomiting, diarrhea, abdominal pain, change in BM Pulm: Denies SOB, MCCLAIN, hemoptysis, wheezing Cards: Denies chest pain, palpitations Skin: Denies Raynaud's, rash, nail changes, photosensitivity, RESPIRATORY THERAPY INSTRUCTOR: Denies headaches, weakness, paresthesias, recurrent falls MSK: as per HPI All other systems reviewed and are unremarkable except noted above Physical Exam Exam Exam: Vital signs reviewed Physical Examination CONSTITUITIONAL Patient alert and cooperative. Well appearing and in no apparent painful distress MSK Hands * Right Hand: Able to make a fist. No swelling or tenderness to palpation of the MCPs, PIPs or DIPs. * Left Hand: Able to make a fist. No swelling or tenderness to palpation of the MCPs, PIPs or DIPs. * Mild Herbedens nodes noted bilaterally Wrists * Right Wrist: Full ROM to flexion and extension. No swelling or TTP * Left Wrist: Full ROM to flexion and extension. No swelling or TTP Elbows * Right Elbow: Full ROM. No swelling or TTP. No TTP of the medial epicondyle. No TTP of the lateral epicondyle * Left Elbow: Full ROM. No swelling or TTP. No TTP of the medial epicondyle. No TTP of the lateral epicondyle Shoulders * Right shoulder: Full ROM. No swelling noted. No TTP of the AC joint. No TTP of the subacromial bursa. No TTP of the posterior shoulder * Left shoulder: Full ROM. No swelling noted. No TTP of the AC joint. No TTP of the subacromial bursa. No TTP of the posterior shoulder Hip bursa: No tenderness to palpation bilaterally Knees * Right knee: Full ROM. No swelling noted. No TTP of the knee joint line. No TTP of pes anserine bursa * Left knee: Full ROM. No swelling noted. No TTP of the knee joint line. No TTP of pes anserine bursa. * Crepitations felt bilaterally Ankles * Right ankle: Good ankle dorsiflexion and plantar flexion. No swelling. No TTP of the ankle joint * Left ankle: Good ankle dorsiflexion and plantar flexion. No swelling. No TTP of the ankle joint Feet * Right foot: Negative squeeze test * Left foot: Negative squeeze test Tender points? * No tenderness to palpation of the bilateral trapezius, supraspinatus, anterior costochondral junctions, bilateral suboccipital muscle insertions SKIN No rashes Vital Signs: Last Vital Signs Pulse 74 10/21/25 09:33 BP 120/70 04/08/25 09:33 Pulse Ox 98 04/08/25 09:33 Oxygen Delivery Method Room Air 04/08/25 09:33 BMI result Body Mass Index 32.0 Results Reviewed Results Reviewed: Laboratory Tests 01/16/25 09:27 Rheumatoid Factor < 13.0 MASOUD Screen POSITIVE A MASOUD Titer 1:40 H Laboratory Tests 08/08/24 01/16/25 11:34 09:27 ESR 17 H Sodium 142 Potassium 4.6 Chloride 110 H Carbon Dioxide 24 BUN 16 Creatinine 0.79 C-Reactive Protein 4.02 H XR L Spine 12/2024 FINDINGS: Multilevel syndesmophyte formation and marginal osteophyte formation and endplate sclerosis and decreased intervertebral disc axial skeleton. 4 mm retrolisthesis at L3-4. Facet joint hypertrophy at L5-S1. Mild levoconvex curvature. No acute cortical disruption. No lytic or blastic lesion. Vascular calcifications, aorta and iliac arteries. IMPRESSION: Multilevel thoracolumbar spondylosis resulting in grade 1 retrolisthesis L3-4. MR L Spine 01/2025 Findings: Bony alignment of the lumbar vertebral bodies is anatomic. No acute fracture. Bone marrow signal intensity is diffusely heterogeneous, likely related to red marrow reconversion, potentially from anemia. Modic type 1 endplate changes are seen along the anterior aspect of the L2-3 disc space. The conus terminates at T12-L1. No abnormal signal intensity identified within the conus medullaris. No retroperitoneal mass lesion seen within the field of view. Partial bony ankylosis of the right sacroiliac joint anteriorly. No erosive change of the sacroiliac joints. Segmental analysis: L1-2: Mild disc desiccation without significant disc bulge. Mild facet joint degenerative change. Central canal and neural foramina are patent. L2-3: Disc desiccation with broad-based disc bulge, asymmetric to the right. Mild facet joint degenerative change. Central canal and neural foramina are patent. L3-4: Disc desiccation with a broad-based disc bulge. Moderate facet joint degenerative change with fluid in both facet joints. This results in [id number] narrowing of the lateral recesses bilaterally. Moderate bilateral neural foraminal narrowing. L4-5: Disc desiccation with broad-based disc bulge. There is moderate facet joint degenerative change with fluid in the facet joints. Central canal is patent. Moderate bilateral neural foraminal narrowing. L5-S1: No disc bulge or protrusion. Moderate to severe facet joint degenerative change. Central canal is patent. Neural foramina are patent. Impression: 1. No acute fracture. 2. Multilevel degenerative disc disease and degenerative facet disease as above with multilevel neural foraminal narrowing. 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 Exam, history and imaging studies consistent with polyarticular osteoarthritis. His labs did show an elevated CRP which could be concerning for polymyalgia rheumatica however patient does not have any stiffness or pain in his shoulders or hips. No GCA type symptoms with headache, vision loss or scalp tenderness. I discussed with the patient and at length about diagnosis of osteoarthritis as well as the possible diagnosis of PMR. Recommend that he follow up with pain management for his steroid injection in his back. He can follow up with us PRN if there are any new concerning symptoms outlined as stiffness in the shoulders or hips, headache or vision changes. Plan - no evidence of an autoimmune rheumatic disease at this time - RTC p.r.n. Plan I spent 45 minutes reviewing the record and labs, taking a history, examining the patient, discussing the treatment plan, and documenting in the medical record Coding Level of Care Code New Pt Level 4 (23942) Diagnoses Polyarticular osteoarthritis M15.9
[2025-04-08 09:33] VITALS: BP 120/70; PULSE 74; O2SAT 98; BMI 32.0
--- OUTSIDE RECORDS SUMMARY | 2025-04-08 09:41 | XMS_ITS | Patient Health Record ---
Author Organization [facility] Kristian ilana Warren Address [address] [facility] [place] [address] Care Team Providers Care Plant Cytologist Name Role Phone Miguel Jasmine Primary Care Provider Unav miguel Chantal Pfeifferine Unavailable [phone] Allergies No Known Allergies Reason For Referral [...] Notes Problem Plantar fasciitis of right foot (48186828387336204 ) Plantar fasciitis of right foot (M72.2) Active confirmed Problem Bilateral atherosclerosis of arteries of lower limbs (disorder) (27835099187335989 ) Atherosclerosis of [place] artery of both lower extremities, with unspecified presence of clinical manifestation (I70.203) Active confirmed Q7(A), Q8(2B), Q9(1B,2 C) Problem Interstitial myositis (64265183) Interstitial myositis of right foot (M60.171) Active confirmed Vital Signs Blood pressure diastolic 65 mm Hg 12/19/2024 Height 5ft 7inch in 12/19/2024 Blood pressure systolic 130 mm Hg 12/19/2024 Weight 225 lbs 12/19/2024 BMI 35.24 kg/m2 12/19/2024 Encounters Encounter Location Date Provider Diagnosis [address] [phone] 11/06/2024 Ana Margarette Pain in right foot M79.671 ; Plantar fasciitis of right foot M72.2 ; Calcaneal spur, right foot M77.31 ; Interstitial myositis of right foot M60.171 ; Bursitis of right foot M77.51 ; Atherosclerosis of [place] artery of both lower extremities, with unspecified presence of clinical manifestation I70.203 and Tinea unguium B35.[address] [address] 12/19/2024 Ana Margarette Pain in right foot M79.671 ; Plantar fasciitis of right foot M72.2 ; Calcaneal spur, right foot M77.31 ; Interstitial myositis of right foot M60.171 ; Bursitis of right foot M77.51 ; Atherosclerosis of [place] artery of both lower extremities, with unspecified presence of clinical manifestation I70.203 and Tinea unguium B35.[address] [address] 08/28/2024 Ana Pfeiffer [address] [address] 09/09/2024 Ana Pfeiffer Assessments Encounter Date Diagnosis [...] foot (ICD-10 - M77.51) 12/19/2024 Atherosclerosis of [place] artery of both lower extremities, with unspecified presence of clinical manifestation (ICD-10 - I70.203) Q7(A), Q8(2B), Q9(1B,2C) 11/06/2024 Tinea unguium (ICD-10 - B35.1) 12/19/2024 Tinea unguium (ICD-10 - B35.1) 11/06/2024 Atherosclerosis of [place] artery of both lower extremities, with unspecified [...] Insured Coverage Start Date Coverage End Date [facility] 65 Medicare Preferred [address] [place] [address] [phone] [id number] Chad Calixto Self - patient is the insured Medical (General) History Medical History History ICD Code Angina Arthritis Back,Hip,and Knee pain High Blood Pressure Replacement Heart Valves CAD Surgical History Surgery Date(Month/Year) Open Heart Sx 11/02/22 Hospitalization History Reason Date(Month/Year)
--- OUTSIDE RECORDS SUMMARY | 2025-04-08 09:41 | XMS_ITS | Clinical Summary ---
Author Organization [facility] Address [address] [place] [phone] Phone Care Team Providers Care Sales Expert Home Theater Name Role Phone Hi Lopez MD Primary [...] [place]AC[place] Care Teams Sales Expert Home Theater Relationship Specialty Start Date End Date Hi Lopez MD PCP - General 04/03/17 Additional Source Comments The information contained in this document represents components of the legal health record. It is not the complete legal health record.[facility]
== END 2025-04-08 10:15 | disposition home or self-care (01) ==
LOC: HO.RHES 09:01
PROVIDERS: PCP Physician Assistant Medical; Visit Provider Student in an Organized Health Care Education/Training Program
DX: M15.9 Polyosteoarthritis, unspecified (principal)
CPT/HCPCS: 99204

== ENCOUNTER → 2025-04-08 09:00 | Outpatient (BNVA) | payer MEDICARE, SELFPAY | PROVIDERS: PCP Physician Assistant Medical; Visit Provider Student in an Organized Health Care Education/Training Program | DX: Z71.2 Person consulting for explanation of examination or test findings (principal); M15.9 Polyosteoarthritis, unspecified | CPT/HCPCS: 99202 ==

== ENCOUNTER 2025-04-15 06:15 | Outpatient (REF) | payer MEDICARE, SELFPAY ==
--- NOTE | ~2025-04-15 | FL_ITS ---
EXAMINATION: FL GUIDANCE ONLY HISTORY: M54.16 - Radiculopathy, lumbar region COMPARISON: None available. TECHNIQUE: Fluoroscopy time: 1 minute, 15 seconds. Cumulative Dose: 28.0 mGy. DAP: 654.75 uGym2 Images: 5. FINDINGS: Fluoroscopic spot films of the lumbar spine demonstrate needles and contrast material in the regions of the bilateral L3 pedicles. FL/FL guidance in treatment room IMPRESSION: Fluoroscopy during procedure. Please see procedure report for additional information. Electronically signed by: Jayden Xiong MD 04/15/2025 12:19 PM EDT
--- OUTSIDE RECORDS SUMMARY | 2025-04-15 06:19 | XMS_ITS | Clinical Summary ---
Author Organization [facility] Address [address] [place] [phone] Phone Care Team Providers Care Branch Service Representative Name Role Phone Hi Lopez MD Primary [...] [place] Care Teams Branch Service Representative Relationship Specialty Start Date End Date Hi Lopez MD PCP - General 04/03/17 Additional Source Comments The information contained in this document represents components of the legal health record. It is not the complete legal health record.[facility]
--- OUTSIDE RECORDS SUMMARY | 2025-04-15 06:19 | XMS_ITS | Patient Health Record ---
Author Organization [facility] Kristian ilana Warren Address [address] [place] [address] Care Team Providers Care Ramp Supervisor Name Role Phone Miguel Jasmine Primary Care Provider Unav miguel Chantal Pfeifferine Unavailable [phone] Allergies No Known Allergies Reason For Referral [...] Notes Problem Plantar fasciitis of right foot (73758491537003546 ) Plantar fasciitis of right foot (M72.2) Active confirmed Problem Bilateral atherosclerosis of arteries of lower limbs (disorder) (74129723402862137 ) Atherosclerosis of cowlitz artery of both lower extremities, with unspecified presence of clinical manifestation (I70.203) Active confirmed Q7(A), Q8(2B), Q9(1B,2 C) Problem Interstitial myositis (73598646) Interstitial myositis of right foot (M60.171) Active confirmed Vital Signs Blood pressure diastolic 65 mm Hg 12/19/2024 Height 5ft 7inch in 12/19/2024 Blood pressure systolic 130 mm Hg 12/19/2024 Weight 225 lbs 12/19/2024 BMI 35.24 kg/m2 12/19/2024 Encounters Encounter Location Date Provider Diagnosis [address] [address] 11/06/2024 Ana Margarette Pain in right foot M79.671 ; Plantar fasciitis of right foot M72.2 ; Calcaneal spur, right foot M77.31 ; Interstitial myositis of right foot M60.171 ; Bursitis of right foot M77.51 ; Atherosclerosis of cowl[place] artery of both lower extremities, with unspecified presence of clinical manifestation I70.203 and Tinea unguium B35.[address] [address] 12/19/2024 Ana Margarette Pain in right foot M79.671 ; Plantar fasciitis of right foot M72.2 ; Calcaneal spur, right foot M77.31 ; Interstitial myositis of right foot M60.171 ; Bursitis of right foot M77.51 ; Atherosclerosis of cowlitz artery of both lower extremities, with unspecified presence of clinical manifestation I70.203 and Tinea unguium B35.[address] [address] 08/28/2024 Ana Pfeiffer [address] [address] 09/09/2024 Ana Pfeiffer Assessments Encounter Date Diagnosis [...] foot (ICD-10 - M77.51) 12/19/2024 Atherosclerosis of cowlitz artery of both lower extremities, with unspecified presence of clinical manifestation (ICD-10 - I70.203) Q7(A), Q8(2B), Q9(1B,2C) 11/06/2024 Tinea unguium (ICD-10 - B35.1) 12/19/2024 Tinea unguium (ICD-10 - B35.1) 11/06/2024 Atherosclerosis of cowlitz artery of both lower extremities, with unspecified [...] Insured Coverage Start Date Coverage End Date [facility] 65 Medicare Preferred [address] [place] [address] [phone] [id number] Chad Calixto Self - patient is the insured Medical (General) History Medical History History ICD Code Angina Arthritis Back,Hip,and Knee pain High Blood Pressure Replacement Heart Valves CAD Surgical History Surgery Date(Month/Year) Open Heart Sx 11/02/22 Hospitalization History Reason Date(Month/Year)
--- OUTSIDE RECORDS SUMMARY | 2025-04-15 06:19 | XMS_ITS | Encounter Summary ---
Author Organization [facility] Address [address] [place] [address] Care Team Providers Care Rib Knitter Name Role Phone Miguel Pisano Primary Care Provider [phone] Encounter Details Date Type Department Care Team (Late st Contact Info) Description 03/21/2025 Results Follow-Up Adult Medicine [facility] [address], [place] [phone] Pavithra Correa PA [address], [place] Social History Tobacco Use Types Packs/Day [...] your loved ones. For example, child care specialist or elderly care for an older adult? [...] Date Recorded What is your living situation? Unrecognized valu e 01/31/2025 Sex and Gender Information Value Date Recorded Sex Assigned at Not on file Legal Sex Male 3:52 AM EST Gender Identity Not on file Sexual Orientation Not on file documented as of this encounter Plan of Treatment Upcoming Encounters Date Type Department Care Team (Late st Contact Info) Description 09/19/2025 8:45 AM EDT Office Visit Adult Medicine [address] [address] Miguel Pisano, EMILIANO [address] [place] [address] documented as of this encounter Visit Diagnoses Not on filedocumented in this encounter Additional Health Concerns Assessment Noted Time PHQ-9 Depression Total Score: 0 08/28/19 25 1:58 PM EDT documented as of this encounter Care Teams Rib Knitter Relationship Specialty Start Date End Date Miguel Pisano PA [address] [place] [address] PCP - General Internal Medicine 08/26/20 documented as of this encounter
--- OUTSIDE RECORDS SUMMARY | 2025-04-15 06:19 | XMS_ITS | Clinical Summary ---
Author Organization [facility] [address] [facility] Address [address] [place] [phone] Phone Care Team Providers Care Monument Setter Name Role Phone Miguel Pisano Primary Care Provider [phone] Allergies Active Allergy Reactions Criticality Noted Date Comments Oxycodone Hcl 01/11/2017 Other reaction(s): hallucinations Medications aspirin 81 mg EC tablet Take 1 tablet (81 mg total) by mouth 1 (one) time each day. 3 Active atorvastatin (LIPITOR) 80 mg tablet Take 1 tablet (80 mg total) by mouth 1 (one) time each day. 3 Active sildenafiL (VIAGRA) 100 mg tablet TAKE 1/2 TABLET BY MOUTH 1/2 HOUR PRIOR TO RELATIONS 4 Active docusate sodium (COLACE) 50 mg capsule Take 1 capsule (50 mg total) by mouth at bedtime. Active metoprolol succinate (TOPROL-XL) 25 mg 24 hr tablet Take 0.5 Tablets by mouth daily. 3 03/20/20 25 Discontinu ed(Therapy completed) Active Problems Problem Noted Date Diagnosed Date Renal cell carcinoma of righ t kidney (CMS/HCC V24, CMS/HCC V28) 03/20/2025 Calculus of gallbladder with out cholecystitis without obstruction 03/20/2025 Pancreatic lesion 03/20/2025 Enlarged prostate 01/31/2025 Renal cyst, right 01/31/2025 Liver lesion 01/31/2025 Bilateral chronic knee pain 01/31/2025 Tubular adenoma 01/31/2025 Bowel wall thickening 01/31/2025 Adrenal adenoma 03/07/2023 Coronary artery disease invo lving [place] coronary artery of [place] heart without angina pectoris 12/22/2022 3-vessel CAD 11/29/2022 Iron deficiency anemia 11/29/2022 Hyperlipidemia with target LDL less than 130 Overview (06/20/2024): IMO update Elevated PSA 06/07/2011 Lung mass 03/22/2010 Overview (06/20/2024): CT scan 10/28 - stable Hypertension 11/15/2007 Encounters Date Type Department Care Team Description 03/21/2025 Results Follow-Up [address] [phone] Pavithra Correa PA 03/20/2025 2:15 PM EDT Office Visit Adult [address] [phone] Pavithra Correa PA Renal cell carcinoma of right kidney (CMS/HCC V24, CMS/HCC V28) (Primary Dx); Tubular adenoma; Bowel wall thickening; Pancreatic lesion; Calculus of gallbladder without cholecystitis without obstruction; Liver lesion; Adenoma of left adrenal gland; Elevated ferritin; Elevated vitamin B12 level 03/17/2025 Results Follow-Up [address] [phone] Pavithra Correa PA 03/10/2025 10:26 AM EDT - 03/10/2025 11:59 PM EDT Hospital Encounter Radiology Department [address] [phone] Chronic fatigue; Liver lesion; Renal cyst, right; Enlarged prostate; Adrenal nodule (CMS/HCC V24); Bowel wall thickening Discharge Disposition: Home or Self Care 02/13/2025 Telephone Adult Medicine [address] [phone] Dorcas Willis MA 01/31/2025 11:30 AM EDT Office Visit Adult Medicine [address] [phone] Pavithra Correa PA Chronic fatigue (Primary Dx); Primary hypertension; Coronary artery disease involving [place] coronary artery of [place] heart without angina pectoris; Iron deficiency anemia, unspecified iron deficiency anemia type; Liver lesion; Renal cyst, right; Enlarged prostate; Adrenal nodule (CMS/HCC V24); Bowel wall thickening; Tubular adenoma; Bilateral chronic knee pain 01/30/2025 Telephone Adult Medicine [address] [phone] Miguel Pisano PA 01/17/2025 Telephone Adult Medicine [address] [phone] Miguel Pisano PA 01/15/2025 Telephone Adult Medicine [address] [phone] Miguel Pisano PA from Last 3 Months Immunizations Immunization Administration Dates Next Due Moderna SARS-CoV-2 COVID-19, [...] Date Site/Laterality Comments CARPAL TUNNEL RELEASE PROCEDURE: [place] NEUROPLASTY &/TRANSPOS MEDIAN NRV CARPAL TUNNE COLONOSCOPY 2006 PROCEDURE: HISTORICAL COLONOSCOPY; COMMENT: Dr. Bell OTHER [...] Alive angioplasty brad nt Brother 2 Alive prostate cancer Daughter 1 Alive RCC s/p resecti on age 50 at dx. 53 now and doing well Daughter 2 Alive Healthy Father (Age 70) [...] for your loved ones. For example, child development director or elderly care for an older adult? [...] Sign Reading Time Taken Comments Blood Pressure 127/73 03/20/2025 2:11 PM EDT Pulse 66 03/20/2025 2:11 PM EDT Temperature 36.6 C (97.8 F) 03/20/2025 2:11 PM EDT Respiratory Rate 14 03/20/2025 2:11 PM EDT Oxygen Saturation 97% 03/20/2025 2:11 PM EDT Inhaled Oxygen Concentration - - Weight 104 kg (230 lb) 03/20/2025 2:11 PM EDT Height 184.2 cm (6' 0.5 ) 03/20/2025 2:11 PM EDT Body Mass Index 30.76 03/20/2025 2:11 PM EDT Plan of Treatment Upcoming Encounters Date Type Department Care Team (Late st Contact Info) Description 09/19/2025 8:45 AM EDT Office Visit Adult Medicine [address] [phone] Miguel Pisano PA [address] [place] [phone] Health Maintenance Due Date Last Done Comments Zoster Vaccines (1 of 2) 01/31/2013 12/06/2012 Hypertension/CHF/CAD Annual BMP Blood Test 11/30/2023 11/29/2022 Medicare Annual Wellness Visit 03/07/2024 03/07/2023 COVID-19 Vaccine ( season) 2025 03/27/2024, 06/16/2022, 07/12/2021, Additional history exists Influenza Vaccine (#1) 2025 03/22/2024, 2023 Falls Risk Assessment 08/27/2025 08/27/2024 Colorectal Cancer Screening: Colonoscopy 10/29/2025 10/29/2020, 10/29/2020, 02/17/2017, Additional history exists Social Influencers of Health Screening 01/31/2026 01/31/2025 [...] Procedure Name Priority Date/Time Associated Diagnosis Comments FERRITIN Routine 03/20/2025 2:54 PM EDT Elevated ferritin VITAMIN B12 Routine 03/20/2025 2:54 PM EDT Elevated vitamin B12 level MR ABDOMEN WO AND W CONTRAST Routine 03/10/2025 12:13 PM EDT Chronic fatigue Liver lesion Renal cyst, right Enlarged prostate Adrenal nodule (CMS/HCC V24) Bowel wall thickening CBC WITH AUTO DIFFERENTIAL Routine 01/31/2025 12:05 [...] Recently Relevant to Health Maintenance Results * Ferritin (03/20/2025 2:54 PM EDT) Only the most recent of2 resultswithin the time period is included. Ferritin 335 26 - 388 ng/mL LAB CHEMISTRY METHOD 03/20/2025 5:46 PM EDT [facility] Blood Venous blood specimen / Unknown Venipuncture / Unknown 03/20/2025 2:54 PM EDT 03/20/2025 2:54 PM EDT Pavithra CUMMINGS LAB BLOOD ORDERABLES Final Resul t Performing Organization Address City/[facility]/ZIP Co de Phone Number [facility] [address] [place] [address], [place] [phone] * Vitamin B12 (03/20/2025 2:54 PM EDT) Only the most recent of2 resultswithin the time period is included. Vitamin B-12 851 250 - 900 pcg/mL LAB CHEMISTRY METHOD 03/20/2025 5:46 PM EDT [facility] Blood Venous blood specimen / Unknown Venipuncture / Unknown 03/20/2025 2:54 PM EDT 03/20/2025 2:54 PM EDT Pavithra CUMMINGS LAB BLOOD ORDERABLES Final Resul t Performing Organization Address City/[facility]/ZIP Co de Phone Number [facility] [address] [place] [address], [place] [phone] * MR Abdomen wo and w Contrast (03/10/2025 12:13 PM EDT) Anatomical Region Laterality Modality Body Magnetic Resonan ce 03/11/2025 2:42 PM EDT Impressions 03/13/2025 9:06 AM EDT 2.2 cm enhancing right upper kidney lesion is suspicious for renal cell carcinoma. Recommend Urology consultation. 0.6 cm cystic lesion in the pancreatic head. Recommend follow-up MRI in one year. Cholelithiasis. Left hepatic lobe cysts. Left adrenal adenoma. -------- FINAL REPORT -------- Dictated By: Katlyn Ro Dictated Date: 03/11/2025 14:42 ET Assigned Physician: Katlyn Ro Reviewed and Electronically Signed By: Katlyn Ro Signed Date: 03/13/2025 09:06 ET Workstation ID: [id number] Transcribed By: Self Edit Transcribed Date: 03/11/2025 15:19 ET Narrative 03/13/2025 9:06 AM EDT EXAM: MRI abdomen HISTORY: Abnormal CT abdomen and pelvis with a liver lesion and left adrenal nodule for which MRI was suggested for additional characterization. COMPARISON: None CORRELATION: CT abdomen and pelvis 01/18/2023 TECHNIQUE: Exam performed on a 1.5 Zakiya high-field MRI scanner. Multiplanar imaging performed without and with contrast. 20 cc of Dotarem administered intravenously. Routine noncontrast MRCP also obtained. FINDINGS: Liver: Normal in size. No evidence of steatosis. Contours are smooth. Lobular cyst in the inferior lateral left hepatic lobe is stable in size compared with the CT measuring 2.1 x 1.7 cm in the axial plane. 0.6 cm cyst in the medial left hepatic lobe (series 901 image 48) has decreased in size compared with 1.[address] No arterial enhancing lesion identified. Gallbladder/biliary tree: Numerous subcentimeter rounded dark signal filling defects within the gallbladder compatible with gallstones. No gallbladder wall thickening or pericholecystic fluid. No biliary ductal dilatation. Spleen: No abnormality detected. Pancreas: 0.6 cm bright T2 signal lesion in the pancreatic head on MRCP image 41 which does not appear to enhance suggesting a cystic lesion. No communication with the main pancreatic duct. No pancreatic ductal dilatation. Adrenal glands: 1.6 x 1.3 cm nodule in the left adrenal gland which is isointense to the adrenal gland on T2 sequences and shows drop in signal on opposed phase imaging compatible with an adenoma. It is stable in size compared with the CT. No right adrenal nodule. Kidneys/ureters: No hydronephrosis. 2.2 x 2.1 x 1.8 cm lesion in the medial right upper kidney (series 701, image 28) which is isointense on T1 and T2 sequences with minimal central T2 hyperintensity and shows heterogeneous enhancement. This is suspicious for renal cell carcinoma. Few bilateral cysts measuring up to 1.2 cm in the right upper kidney. Vasculature: No abdominal aortic aneurysm. Hepatic veins and portal vein appear patent. Peritoneum: No significant ascites or organized collection. Lymph nodes: No lymphadenopathy detected. Bowel: No bowel dilatation. Lower thorax: No infiltrate in the basal lungs. No pleural or pericardial effusions. Procedure Note Katlyn Ro MD - 03/13/2025 EXAM: MRI abdomen HISTORY: Abnormal CT abdomen and pelvis with a liver lesion and leftadrenal nodule for which MRI was suggested for additionalcharacterization. COMPARISON: None CORRELATION: CT abdomen and pelvis 01/18/2023 TECHNIQUE: Exam performed on a 1.5 Zakiya high-field MRI scanner.Multiplanar imaging performed without and with contrast. 20 cc of Dotaremadministered intravenously. Routine noncontrast MRCP also obtained. FINDINGS: Liver: Normal in size. No evidence of steatosis. Contours are smooth.Lobular cyst in the inferior lateral left hepatic lobe is stable in sizecompared with the CT measuring 2.1 x 1.7 cm in the axial plane. 0.6 cmcyst in the medial left hepatic lobe (series 901 image 48) has decreasedin size compared with 1.[address] No arterial enhancing lesionidentified. Gallbladder/biliary tree: Numerous subcentimeter rounded dark signalfilling defects within the gallbladder compatible with gallstones. Nogallbladder wall thickening or pericholecystic fluid. No biliary ductaldilatation. Spleen: No abnormality detected. Pancreas: 0.6 cm bright T2 signal lesion in the pancreatic head on MRCPimage 41 which does not appear to enhance suggesting a cystic lesion. Nocommunication with the main pancreatic duct. No pancreatic ductaldilatation. Adrenal glands: 1.6 x 1.3 cm nodule in the left adrenal gland which isisointense to the adrenal gland on T2 sequences and shows drop in signalon opposed phase imaging compatible with an adenoma. It is stable in sizecompared with the CT. No right adrenal nodule. Kidneys/ureters: No hydronephrosis. 2.2 x 2.1 x 1.8 cm lesion in themedial right upper kidney (series 701, image 28) which is isointense on T1and T2 sequences with minimal central T2 hyperintensity and showsheterogeneous enhancement. This is suspicious for renal cell carcinoma.Few bilateral cysts measuring up to 1.2 cm in the right upper kidney. Vasculature: No abdominal aortic aneurysm. Hepatic veins and portal veinappear patent. Peritoneum: No significant ascites or organized collection. Lymph nodes: No lymphadenopathy detected. Bowel: No bowel dilatation. Lower thorax: No infiltrate in the basal lungs. No pleural or pericardialeffusions. IMPRESSION: 2.2 cm enhancing right upper kidney lesion is suspicious for renal cellcarcinoma. Recommend Urology consultation. 0.6 cm cystic lesion in the pancreatic head. Recommend follow-up MRI inone year. Cholelithiasis. Left hepatic lobe cysts. Left adrenal adenoma. -------- FINAL REPORT -------- Dictated By: Katlyn Ro Dictated Date: 03/11/2025 14:42 ET Assigned Physician: Katlyn Ro Reviewed and Electronically Signed By: Katlyn Ro Signed Date: 03/13/2025 09:06 ET Workstation ID: [id number] Transcribed By: Self Edit Transcribed Date: 03/11/2025 15:19 ET us Pavithra CUMMINGS [facility] [place]ED[place] Final Result * Thyroid stimulating hormone with reflex to free t4 and free t3 (01/31/2025 12:05 PM EDT) TSH 0.88 0.40 - 4.00 mcIU/mL LAB CHEMISTRY METHOD 01/31/2025 3:32 PM EDT [facility] Blood Venous blood specimen / Unknown Venipuncture / Unknown 01/31/2025 12:05 PM EDT 01/31/2025 12:05 PM EDT us Pavithra CUMMINGS LAB BLOOD ORDERABLES Final Resul t [facility] [address] [place] [address], [place] [phone] * CBC auto differential (01/31/2025 12:05 PM EDT) WBC 7.8 4.8 - 10.8 K/mcL LAB HEMETOLOGY METHOD 01/31/2025 2:19 PM EDT [facility] RBC 5.10 4.50 - 5.50 M/mcL LAB HEMETOLOGY METHOD 01/31/2025 2:19 PM EDT [facility] Hemoglobin 14.3 13.5 - 17.5 g/dL LAB HEMETOLOGY METHOD 01/31/2025 2:19 PM EDT [facility] Hematocrit 42.5 42.0 - 54.0 % LAB HEMETOLOGY METHOD 01/31/2025 2:19 PM EDT [facility] MCV 84.2 79.0 - 98.0 FL LAB HEMETOLOGY METHOD 01/31/2025 2:19 PM EDT [facility] MCH 28.3 27.0 - 32.0 pcg LAB HEMETOLOGY METHOD 01/31/2025 2:19 PM EDT [facility] MCHC 33.6 32.0 - 37.0 g/dL LAB HEMETOLOGY METHOD 01/31/2025 2:19 PM EDT [facility] RDW 13.5 11.0 - 15.0 % LAB HEMETOLOGY METHOD 01/31/2025 2:19 PM EDT [facility] Platelets 317 130 - 400 K/mcL LAB HEMETOLOGY METHOD 01/31/2025 2:19 PM EDT [facility] MPV 10.8 7.0 - 11.0 FL LAB HEMETOLOGY METHOD 01/31/2025 2:19 PM [facility] NRBC 0.0 <1.0 % LAB HEMETOLOGY METHOD 01/31/2025 2:19 PM [facility] NRBC Absolute 0.00 <0.10 K/mcL LAB HEMETOLOGY METHOD 01/31/2025 2:19 PM [facility] Neutrophils Relative 61.1 % LAB HEMETOLOGY METHOD 01/31/2025 2:19 PM [facility] Lymphocytes Relative 29.0 % LAB HEMETOLOGY METHOD 01/31/2025 2:19 PM [facility] Monocytes Relative 7.9 % LAB HEMETOLOGY METHOD 01/31/2025 2:19 PM [facility] Eosinophils Relative 0.8 % LAB HEMETOLOGY METHOD 01/31/2025 2:19 PM [facility] Basophils Relative 0.8 % LAB HEMETOLOGY METHOD 01/31/2025 2:19 PM [facility] Immature Granulocytes Relative 0.4 % LAB HEMETOLOGY METHOD 01/31/2025 2:19 PM [facility] Neutrophils Absolute 4.74 1.50 - 7.00 K/mcL LAB HEMETOLOGY METHOD 01/31/2025 2:19 PM [facility] Lymphocytes Absolute 2.25 1.00 - 5.00 K/mcL LAB HEMETOLOGY METHOD 01/31/2025 2:19 PM [facility] Monocytes Absolute 0.61 0.20 - 1.00 K/mcL LAB HEMETOLOGY METHOD 01/31/2025 2:19 PM [facility] Eosinophils Absolute 0.06 0.00 - 0.50 K/mcL LAB HEMETOLOGY METHOD 01/31/2025 2:19 PM [facility] Basophils Absolute 0.06 0.00 - 0.20 K/mcL LAB HEMETOLOGY METHOD 01/31/2025 2:19 PM EDT [facility] Immature Granulocytes Absolute 0.03 0.00 - 0.03 K/mcL LAB HEMETOLOGY METHOD 01/31/2025 2:19 PM EDT [facility] Blood Venous blood specimen / Unknown Venipuncture / Unknown 01/31/2025 12:05 PM EDT 01/31/2025 12:05 PM EDT Pavithra CUMMINGS LAB BLOOD ORDERABLES Final Resul t Performing Organization Address City/[facility]/ZIP Co de Phone Number [facility] [address] [place] [address], [place] [phone] * Iron and TIBC (01/31/2025 12:05 PM EDT) Iron 99 50 - 160 mcg/dL LAB CHEMISTRY METHOD 01/31/2025 2:59 PM EDT [facility] TIBC 295 250 - 450 mcg/dL LAB CHEMISTRY METHOD 01/31/2025 2:59 PM EDT [facility] Iron Saturation 34 20 - 50 % LAB CHEMISTRY METHOD 01/31/2025 2:59 PM EDT [facility] Blood Venous blood specimen / Unknown Venipuncture / Unknown 01/31/2025 12:05 PM EDT 01/31/2025 12:05 PM EDT Pavithra CUMMINGS LAB BLOOD ORDERABLES Final Resul t [facility] [address] [place] [address], [place] [phone] * Folate (01/31/2025 12:05 PM EDT) Folate 9.8 2.8 - 17.0 ng/ml LAB CHEMISTRY METHOD 01/31/2025 2:59 PM EDT [facility] Blood Venous blood specimen / Unknown Venipuncture / Unknown 01/31/2025 12:05 PM EDT 01/31/2025 12:05 PM EDT us Pavithra CUMMINGS LAB BLOOD ORDERABLES Final Resul t [facility] [address] [place] [address], * Hepatic function panel (01/31/2025 12:05 PM EDT) Total Protein 7.3 6.0 - 8.0 g/dL LAB CHEMISTRY METHOD 01/31/2025 2:59 PM EDT [facility] Albumin 4.3 3.2 - 5.0 g/dL LAB CHEMISTRY METHOD 01/31/2025 2:59 PM EDT [facility] Total Bilirubin 0.9 0.0 - 1.4 mg/dL LAB CHEMISTRY METHOD 01/31/2025 2:59 PM EDT [facility] Bilirubin, Direct 0.2 0.0 - 0.3 mg/dL LAB CHEMISTRY METHOD 01/31/2025 2:59 PM EDT [facility] Bilirubin, Indirect 0.7 0.0 - 1.1 mg/dL LAB CHEMISTRY METHOD 01/31/2025 2:59 PM EDT [facility] ALT (SGPT) 37 10 - 60 unit/L LAB CHEMISTRY METHOD 01/31/2025 2:59 PM EDT [facility] AST (SGOT) 28 10 - 42 unit/L LAB CHEMISTRY METHOD 01/31/2025 2:59 PM EDT [facility] Alkaline Phosphatase 86 42 - 121 unit/L LAB CHEMISTRY METHOD 01/31/2025 2:59 PM EDT [facility] Blood Venous blood specimen / Unknown Venipuncture / Unknown 01/31/2025 12:05 PM EDT 01/31/2025 12:05 PM EDT Pavithra CUMMINGS LAB BLOOD ORDERABLES Final Resul t [facility] [address] [place] [address], [place] [phone] * External Xray Report (01/16/2025) Anatomical Region Laterality Modality Radiographic Tori ging Provider [facility] XR PROCEDURES Final Result * External clinical lab (01/16/2025) Only the most recent of2 resultswithin the time period is included. Provider [facility] LAB BLOOD ORDERABLES Fin al Result * Annual BMP Blood Test (11/29/2022) Pathologist [facility] Annual BMP Blood Test abstracted Result [facility] Historical Provider HEALTH MAINTENANCE Final Result * (ABNORMAL) Lipid panel (11/29/2022) [facility] LDL/HDL Ratio 3 0 - 4 Triglycerides 145 0 - 150 mg/dL Cholesterol 89 0 - 200 mg/dL HDL 35(A) >=40 mg/dL LDL Cholesterol 25 0 - 100 mg/dL Blood Venous blood specimen / Unknown Result [facility] Historical Provider LAB BLOOD ORDERABLES Mini l Result * Colonoscopy (10/29/2020) Pathologist [facility] Colonoscopy abstract pepito Anatomical Region Laterality Modality Other Historical Provider HEALTH MAINTENANCE Final Result * Abdominal Aortic Aneurysm Screen (02/05/2015) [facility] Abdominal Aortic Aneurysm (AAA) Screening abstracted Anatomical Region Laterality Modality Other Result [facility] Historical Provider HEALTH MAINTENANCE Final Result * Hepatitis C Screening (07/04/2014) Pathologist [facility] Hepatitis C Screening abstracted us Historical Provider HEALTH MAINTENANCE Final Result from Last 3 Months or Most Recently Relevant to Health Maintenance Insurance [employer] [place] MEDICARE ADVANTAGE Care Teams Monument Setter Relationship Specialty Start Date End Date Miguel Pisano PA [address] [place] [address] PCP - General Internal Medicine 08/26/20
--- OUTSIDE RECORDS SUMMARY | 2025-04-15 06:19 | XMS_ITS | Encounter Summary ---
Author Organization [facility] Address [address] [place] [address] Care Team Providers Care Vice President Global Advertising Sales Name Role Phone Miguel Pisano Primary Care Provider [phone] Encounter Details Date Type Department Care Team (Late st Contact Info) Description 03/17/2025 Results Follow-Up Adult Medicine [facility] [address] [place], [place] [phone] Pavithra Correa PA [address] [place], [place] Social History Tobacco Use Types Packs/Day [...] for your loved ones. For example, children's zoo caretaker or elderly care for an older adult? [...] 8:45 AM EDT Office Visit Adult Medicine [address] [phone] Miguel Pisano, EMILIANO [address] [place] [phone] documented as of this encounter Visit Diagnoses Not on filedocumented in this encounter Additional Health Concerns Assessment Noted Time PHQ-9 Depression Total Score: 0 08/28/19 25 1:58 PM EDT documented as of this encounter Care Teams Vice President Global Advertising Sales Relationship Specialty Start Date End Date Miguel Pisano PA [address] [place] [address] PCP - General Internal Medicine 08/26/20 documented as of this encounter
== END 2025-04-15 06:16 | disposition home or self-care (01) ==
LOC: CF 06:15
PROVIDERS: Visit Provider Anesthesiology
DX: M51.16 Intervertebral disc disorders with radiculopathy, lumbar region (principal); G89.29 Other chronic pain
CPT/HCPCS: 64483; J1100; J2003; Q9967

== ENCOUNTER 2025-04-15 08:36 | Outpatient (AMB) | payer MEDICARE, SELFPAY ==
--- NOTE | 2025-04-15 08:37 | A.OFFVIS_ITS ---
Vital Signs 04/15/25 08:38 04/15/25 09:40 Height 5 ft 11 in Weight 229 lb BMI 31.9 BP 136/79 154/78 H Blood Pressure Location Rt brachial Rt brachial Position Sitting Sitting Respiration 16 16 Pulse 74 65 Pulse Source Pulse Oximeter Pulse Oximeter Pulse Oximetry (%) 99 98 Oxygen Delivery Method Room Air Room Air Intake Visit Reasons: Bilateral L3-L4 TFESI Allergies No Known Allergies Allergy (Verified 04/08/25 09:33) PFSH Medical History Ischemia of digits of hand CAD (coronary artery disease) Crescendo angina HTN (hypertension) Surgical History S/P CABG x 5 Hx of shoulder surgery Family History Father Cancer Mother Cancer Brother CAD (coronary artery disease) Social History Alcohol intake: never Patient Tobacco Use Status: Former Tobacco user Tobacco use type: Cigarette and Cigar Cigarette Packs Per Day: 1.5 Years Smoked: 30 Physical Exam Vital Signs: Last Vital Signs Pulse 65 04/15/25 09:40 Resp 16 04/15/25 09:40 BP 154/78 H 04/15/25 09:40 Pulse Ox 98 04/15/25 09:40 Oxygen Delivery Method Room Air 04/15/25 09:40 BMI result Body Mass Index 31.9 Assessment & Plan Assessment & Plan (1) Chronic low back pain with bilateral sciatica: Code(s): M54.41 - Lumbago with sciatica, right side; M54.42 - Lumbago with sciatica, left side; G89.29 - Other chronic pain Category: Medical (2) Lumbar radiculopathy: Code(s): M54.16 - Radiculopathy, lumbar region Category: Medical (3) Lumbar degenerative disc disease: Code(s): M51.369 - Other intervertebral disc degeneration, lumbar region without mention of lumbar back pain or lower extremity pain Category: Medical Plan Transforaminal bilateral L3-L4 epidural steroid injection. Informed consent was explained to the patient risks and benefits were explained. The patient came to the operating room and was positioned prone on the operating table. Time-out was performed delineating name date of of the patient sides and sites of the procedure. The lower back of the patient was prepped with ChloraPrep and draped with sterile self adhesive utility towels. C-arm was brought over the operating field and sq picture of the L4 vertebra was demonstrated on the screen. The point of interest was delineated as the lateral border of right superior articular process of L4 vertebra. In projection of the point of interest to the skin injection of the local anesthetic lidocaine 1% was performed. After that 22 gauge 5 in needle was inserted through the skin wheal and advanced through the skin to were the target in tunnel vision fashion. When tip of the needle gently contacted the bone the tip of the needle was deviated slightly lateral advanced 3 mm and after that deviated slightly medial. At this point the spurs were felt under the tip of the needle and no epidural space was detected. Injection of the contrast demonstrated para spinal spread of the contrast. After that decision was made to change the position of the insertion of the needle at lowest point of the pedicle of L3 vertebra. C-arm was tilted 30 degrees ipsilateral to the right and projection of the pedicle to the skin was noted on the screen. 3 mm below the lowest point of the pedicle projection to the skin injection of the local anesthetic was performed as above. 22 gauge 5 need needle was inserted through the skin wheal and advanced to were the epidural space under intermittent anterior posterior and oblique views. When tip of the needle entered the silhouette of the spinal column and was not further in than midline of the silhouette of the pedicle injection of the contrast was performed demonstrating epidurogram. After that injection of the 3 cc of lidocaine 1% mixed with Decadron 10 mg was performed. After that atte ntion was concentrated on the left side her procedure was performed on the left side in similar fashion in intrapedicular technique. Upon completion of the injection the needles were withdrawn sterile Band-Aids were applied. Total dose of Decadron was 20 mg. The patient tolerated procedure well. Orders: Orders FL guidance in treatment room Today M54.16 - Radiculopathy, lumbar region Coding Level of Care Code Procedure Only Diagnoses Chronic low back pain with bilateral sciatica M54.41; M54.42; G89.29 Lumbar radiculopathy M54.16 Lumbar degenerative disc disease M51.369
[2025-04-15 08:38] VITALS: BP 136/79; PULSE 74; RESP 16; O2SAT 99; BMI 31.9
[2025-04-15 09:40] VITALS: BP 154/78; PULSE 65; RESP 16; O2SAT 98
== END 2025-04-15 09:50 | disposition home or self-care (01) ==
LOC: HO.PMCPRC 08:36
PROVIDERS: PCP Physician Assistant Medical; Visit Provider Anesthesiology
DX: M54.16 Radiculopathy, lumbar region (principal); M54.42 Lumbago with sciatica, left side; M51.369 Other intervertebral disc degeneration, lumbar region without mention of lumbar back pain or lower extremity pain; M54.41 Lumbago with sciatica, right side
CPT/HCPCS: 64483

== ENCOUNTER 2025-05-13 08:33 | Outpatient (AMB) | payer MEDICARE, SELFPAY ==
--- NOTE | 2025-05-13 08:35 | A.OFFVIS_ITS ---
Vital Signs 05/13/25 08:50 05/13/25 08:58 Height 5 ft 11 in Weight 225 lb BMI 31.4 BP 95/53 L 97/53 L Blood Pressure Location Rt brachial Lt brachial Position Sitting Sitting Respiration 16 Pulse 74 72 Pulse Source Pulse Oximeter Pulse Oximeter Pulse Oximetry (%) 99 95 Oxygen Delivery Method Room Air Room Air Intake Visit Reasons: S/P Bilateral L3-L4 TFESI Allergies No Known Allergies Allergy (Verified 05/13/25 08:52) HPI Comments Details: The patient is a 74 year old individual presenting for a follow-up visit after a recent bilateral L3-L4 transforaminal epidural steroid injection on April 15 for radicular leg pain associated with spinal stenosis. Currently, the patient reports that pain is manageable at a level of 2 out of 10, and the patient is able to walk more, function and sleep better. This morning, the patient experienced a new-onset, severe pain in the middle of the spine while walking and carrying a heavy bucket. He will continue to monitor his lower back symptoms but states leg pain has significantly improved since injections. The patient's medication regimen includes baby aspirin and atorvastatin. The patient no longer takes any blood pressure medication, as it was stopped by the circulation analyst due to causing low blood pressure. He denies dizziness, weakness, lightheadedness, blurred vision, chest pain or pressure or shortness of breaths with low BP readings today. Past Procedures: 04/15/25: Bilateral L3-L4 TFESI-ongoing 80% pain relief>1 month PRIOR: The patient is a 74-year-old male presenting for follow up to discuss recent lumbar spine MRI results. He continues to endorse intractable low back pain radiating to both legs. The pain is localized to anterior thighs and into anterior shins and lateral lower legs with associated numbness and tingling and intermittent weakness with walking. The patient reports that the pain has been persistent and affects his mobility, limiting his ability to walk for more than 10 minutes. Pain impacts causing shuffling and leaning forward while walking. The lumbar spine MRI revealed multilevel arthritis, disc degeneration, and multilevel neural foraminal narrowing, particularly at the L3-L4 and L4-L5 levels. The MRI findings are consistent with the patient's symptoms of radicular leg pain. The patient has not experienced any bladder or bowel incontinence or saddle anesthesia. He reports being able to sit for one to two hours without significa nt discomfort but has to reposition often and does not wake up frequently at night due to back pain. Pain is reported at 5-7/10 with movements and walking. PRIOR: The patient is a 74-year-old male presenting with chronic back pain and discuss recent lumbar spine xray and lab results. The patient has a history of multilevel thoracic and lumbar spondylosis with first degree spondylolisthesis at L3 to L4, identified through imaging studies. Bone spurs and arthritis are also present, contributing to the patient's chronic back pain. The patient reports that the pain radiates to the legs, particularly affecting the thighs and knees, and is exacerbated by standing upright and walking. The patient has elevated ESR and C-reactive protein, positive MASOUD with speckled A and negative Rheumatoid factor, suggesting a possible autoimmune condition. The patient is scheduled to see a Assistant Professor Of Geography in March for further evaluation but will reach out to them for a sooner appointment. The patient also reports he has been experiences fatigue and daytime sleeping. He will follow up with Primary care and Cardiology providers for this. Denies any recent cough, cold, infection, fever or any other significant changes in medical history since last office visit. PRIOR: The patient is a 74-year-old male presenting with back pain and bilateral leg pain. He reports a history of arthritis in both legs since the age of 9, but has never undergone a rheumatologic evaluation. Recently, he underwent a Vascular evaluation for his legs, which showed an ankle-brachial index of 1.5 bilaterally, considered artificially elevated due to palpable pulses. The Vascular provider deemed him stable from a peripheral vascular standpoint and referred him to rule out musculoskeletal causes for his leg pain. The patient describes his back pain as intermittent, worsening in the afternoon, and affecting his sleep and daily activities. The leg pain is severe, ranging from 9/10 in the afternoon to 3/10 in the morning, back pain 8/10 and is exacerbated by walking, bending, most daily activities and weather changes. He describes the pain as throbbing, stabbing, sharp, cramping, pinching, tugging, tingling, hurting, sore, aching, heavy, tiring, tightness, and squeezing. The patient has a history of coronary artery disease and underwent quintuple coronary artery bypass grafting in Oct, 2022. He has a history of smoking for 30 years, currently not smoking. Denies alcohol or marijuana consumption. He completed physical therapy with minimal improvement and has been taking Tylenol, which has not been helpful. Patient reports, prior back and leg pain flare up few months ago, he used to daily walk and do stretching for exercise, but with worsening back and leg pain, he is not able to walk more than 5 feet due to increasing leg, back pain with heaviness in his legs and numbness in his anterior thighs, shins and left calf. Reports constant burning pain in his legs and feet. - Onset: Intermittent back pain, worsening in the afternoon - Quality: Throbbing, stabbing, sharp, cramping, pinching, tugging, tingling, hurting, sore, aching, heavy, tiring, tightness, squeezing - Location: Back and bilateral legs - Radiation: Pain travels to the front of the thighs - Exacerbating factors: Weather changes, lifting heavy objects, bending, walking, changing positions - Relieving factors: Cold application, hot showers, rest, no relief with Tylenol - Interference: Affects sleep and daily activities - Affect: Pain affects sleep and daily activities - Analgesia: Currently taking Tylenol with minimal relief - Adverse Effects: None reported - Activities of Daily Living: Pain limits mobility and ability to perform daily tasks - Aberrant Drug Related Behaviors: None reported Oswestry Low Back Pain Disability Score=29 [facility] Medical History Ischemia of digits of hand CAD (coronary artery disease) Crescendo angina HTN (hypertension) Surgical History S/P CABG x 5 Hx of shoulder surgery Family History Father Cancer Mother Cancer Brother CAD (coronary artery disease) Social History Alcohol intake: never Patient Tobacco Use Status: Former Tobacco user Tobacco use type: Cigarette and Cigar Cigarette Packs Per Day: 1.5 Years Smoked: 30 Review of Systems Const All systems reviewed & are unremarkable except as noted in HPI and below Physical Exam Vital Signs: Last Vital Signs Pulse 72 05/13/25 08:58 Resp 16 05/13/25 08:58 BP 97/53 L 05/13/25 08:58 Pulse Ox 95 05/13/25 08:58 Oxygen Delivery Method Room Air 05/13/25 08:58 BMI result Body Mass Index 31.4 General: Appears afebrile. Alert and oriented. Mood and affect appropriate. Follows and participates in conversation appropriately. Respiratory effort is unlabored. No cough. Able to transition from sit to stand unassisted. Ambulates with antalgic gait, no limping. Uses cane at home. Back/Spine/Pelvis Cervical Spine: cervical ROM normal, cervical muscular tenderness and No Cervical spine tenderness Thoracic/Lumbar Spine: thoracic and lumbar spine normal to inspection, No Thoracic/lumbar spine scar(s), Lasegue's sign positive (left>right) bilateral and localized, pain with thoraco-lumbar ROM, paraspinal muscle tenderness, thoraco-lumbar ROM limited, No thoracic spinal tenderness and lumbar spinal tenderness (L4-S1) Pelvis: no sciatic notch tenderness Sacroiliac joints: bilaterally nontender Extrem General: Yes capillary refill normal, Yes no clubbing, cyanosis or edema and Yes no calf tenderness Results Reviewed Results Reviewed: XR lumbar spine 4V min 01/16/25 CLINICAL INFORMATION: Bilateral. Right-sided. Sciatica. TECHNIQUE: AP oblique and lateral views. COMPARISON: None FINDINGS: Multilevel syndesmophyte formation and marginal osteophyte formation and endplate sclerosis and decreased intervertebral disc axial skeleton. 4 mm retrolisthesis at L3-4. Facet joint hypertrophy at L5-S1. Mild levoconvex curvature. No acute cortical disruption. No lytic or blastic lesion. Vascular calcifications, aorta and iliac arteries. IMPRESSION: Multilevel thoracolumbar spondylosis resulting in grade 1 retrolisthesis L3-4. MR lumbar spine wo con 02/12/25 CLINICAL HISTORY: M54.41 - Lumbago with sciatica, right side Exam: MRI of the lumbar spine without intravenous contrast. Comparison: Radiographs january 16, 2025. Findings: Bony alignment of the lumbar vertebral bodies is anatomic. No acute fracture. Bone marrow signal intensity is diffusely heterogeneous, likely related to red marrow reconversion, potentially from anemia. Modic type 1 endplate changes are seen along the anterior aspect of the L2-3 disc space. The conus terminates at T12-L1. No abnormal signal intensity identified within the conus medullaris. No retroperitoneal mass lesion seen within the field of view. Partial bony ankylosis of the right sacroiliac joint anteriorly. No erosive change of the sacroiliac joints. Segmental analysis: L1-2: Mild disc desiccation without significant disc bulge. Mild facet joint degenerative change. Central canal and neural foramina are patent. L2-3: Disc desiccation with broad-based disc bulge, asymmetric to the right. Mild facet joint degenerative change. Central canal and neural foramina are patent. L3-4: Disc desiccation with a broad-based disc bulge. Moderate facet joint degenerative change with fluid in both facet joints. This results in [id number] narrowing of the lateral recesses bilaterally. Moderate bilateral neural foraminal narrowing. L4-5: Disc desiccation with broad-based disc bulge. There is moderate facet joint degenerative change with fluid in the facet joints. Central canal is patent. Moderate bilateral neural foraminal narrowing. L5-S1: No disc bulge or protrusion. Moderate to severe facet joint degenerative change. Central canal is patent. Neural foramina are patent. IMPRESSION: 1. No acute fracture. 2. Multilevel degenerative disc disease and degenerative facet disease as above with multilevel neural foraminal narrowing. Assessment & Plan Assessment & Plan (1) Chronic low back pain with bilateral sciatica: Code(s): M54.41 - Lumbago with sciatica, right side; M54.42 - Lumbago with sciatica, left side; G89.29 - Other chronic pain Category: Medical (2) Lumbar degenerative disc disease: Code(s): M51.369 - Other intervertebral disc degeneration, lumbar region without mention of lumbar back pain or lower extremity pain Category: Medical (3) Lumbar radiculopathy: Code(s): M54.16 - Radiculopathy, lumbar region Category: Medical (4) Lumbosacral spondylosis: Code(s): M47.817 - Spondylosis without myelopathy or radiculopathy, lumbosacral region Category: Medical Qualifiers: Spinal osteoarthritis complication: with radiculopathy Qualified Code(s): M47.27 - Other spondylosis with radiculopathy, lumbosacral region Plan The patient's pain will be monitored following the recent epidural steroid injection, with the expectation of approximately three months of relief. If the pain from back arthritis becomes more prominent, diagnostic lumbar MBB blocks for radiofrequency ablation or a Sprint stimulation trial will be considered. Regarding the patient's low blood pressure, the patient was advised to monitor readings at home. If blood pressure is consistently below 100 mmHg and symptomatic, the patient should seek emergency care and follow up with his PCP. All questions and concerns have been answered and patient agreed with the treatment plan. Follow up as needed. Patient was informed and verbally consented to the use of an ambient scribe for clinic note documentation during this visit. Medications: Discontinued metoprolol succinate ER Discontinued Reason: Patient no longer taking 25 mg PO DAILY 30 tabs 3RF Coding Level of Care Code Est Pt Level 3 (37925) Complex visit Add On G2211 Diagnoses Chronic low back pain with bilateral sciatica M54.41; M54.42; G89.29 Lumbar degenerative disc disease M51.369 Lumbar radiculopathy M54.16 Osteoarthritis of spine with radiculopathy, lumbosacral region M47.27 Spinal osteoarthritis complication: with radiculopathy
[2025-05-13 08:50] VITALS: BP 95/53; PULSE 74; O2SAT 99; BMI 31.4
--- OUTSIDE RECORDS SUMMARY | 2025-05-13 08:50 | XMS_ITS | Encounter Summary ---
Author Organization [facility] Address [address] [place] [address] Care Team Providers Care Counselor Supervisor Name Role Phone Miguel Pisano Primary Care Provider [phone] Encounter Details Date Type Department Care Team (Late st Contact Info) Description 03/17/2025 Results Follow-Up Adult Medicine [facility] [address] [place], [place] [phone] Pavithra Correa PA [address] [place], [place] Social History Tobacco Use Types Packs/Day [...] for your loved ones. For example, children's nursery assistant or elderly care for an older adult? [...] Care Team (Late st Contact Info) Description 06/05/2025 12:00 PM EST Appointment [facility] [address] [place] [phone] Kurt Harper MD [address] [facility] [address] [place] [address] 09/19/2025 8:45 AM EDT Office Visit Adult Medicine [address] [phone] Miguel Pisano PA [address] [place] [phone] documented as of this encounter Visit Diagnoses Not on filedocumented in this encounter Additional Health Concerns Assessment Noted Time PHQ-9 Depression Total Score: 0 08/28/19 25 1:58 PM EDT documented as of this encounter Care Teams Counselor Supervisor Relationship Specialty Start Date End Date Miguel Pisano PA [address] [place] [address] PCP - General Internal Medicine 08/26/20 documented as of this encounter
--- OUTSIDE RECORDS SUMMARY | 2025-05-13 08:50 | XMS_ITS | Clinical Summary ---
Author Organization [facility] Address [address] [place] [phone] Phone Care Team Providers Care Staff Readiness Officer Name Role Phone Hi Lopez MD Primary [...] [place]AC[place] Care Teams Staff Readiness Officer Relationship Specialty Start Date End Date Hi Lopez MD PCP - General 04/03/17 Additional Source Comments The information contained in this document represents components of the legal health record. It is not the complete legal health record.[facility]
--- OUTSIDE RECORDS SUMMARY | 2025-05-13 08:50 | XMS_ITS | Encounter Summary ---
Author Organization [facility] Address [address] [place] [address] Care Team Providers Care Warehouse Sorter Name Role Phone Miguel Pisano Primary Care Provider [phone] Encounter Details Date Type Department Care Team (Late st Contact Info) Description 03/21/2025 Results Follow-Up Adult Medicine [facility] [address] [place], [place] [phone] Pavithra Correa PA [address] [place], [place] Social History Tobacco Use Types Packs/Day [...] your loved ones. For example, children's tutor or elderly care for an older adult? [...] Info) Description 06/05/2025 12:00 PM EST Appointment [facility] [address] [place] [phone] Kurt Harper MD [address] [facility] [address] [place] [address] 09/19/2025 8:45 AM EDT Office Visit Adult Medicine [address] [phone] Miguel Pisano PA [address] [place] [phone] documented as of this encounter Visit Diagnoses Not on filedocumented in this encounter Additional Health Concerns Assessment Noted Time PHQ-9 Depression Total Score: 0 08/28/19 25 1:58 PM EDT documented as of this encounter Care Teams Warehouse Sorter Relationship Specialty Start Date End Date Miguel Pisano PA [address] [place] [address] PCP - General Internal Medicine 08/26/20 documented as of this encounter
--- OUTSIDE RECORDS SUMMARY | 2025-05-13 08:50 | XMS_ITS | Clinical Summary ---
Author Organization [facility] [address] [facility] Address [address] [place] [phone] Phone Care Team Providers Care Script Artist Name Role Phone Miguel Pisano Primary Care Provider [phone] Allergies Active Allergy Reactions Criticality Noted Date [...] mg total) by mouth at bedtime. Active Active Problems Problem Noted Date Diagnosed Date Renal cell carcinoma of righ t kidney (CMS/HCC V24, CMS/HCC V28) 03/20/2025 Calculus of gallbladder with out cholecystitis without obstruction 03/20/2025 Pancreatic lesion 03/20/2025 Enlarged prostate 01/31/2025 Renal cyst, right 01/31/2025 Liver lesion 01/31/2025 Bilateral chronic knee pain 01/31/2025 Tubular adenoma 01/31/2025 Bowel wall thickening 01/31/2025 Adrenal adenoma 03/07/2023 Coronary artery disease invo lving elem coronary artery of elem heart without angina pectoris 12/22/2022 3-vessel CAD 11/29/2022 Iron deficiency anemia 11/29/2022 Hyperlipidemia with target LDL less than 130 Overview (06/20/2024): IMO update Elevated PSA 06/07/2011 Lung mass 03/22/2010 Overview (06/20/2024): CT scan 10/28 - stable Hypertension 11/15/2007 Encounters Date Type Department Care Team Description 03/21/2025 Results Follow-Up Adult Medicine [address] [phone] Pavithra Correa PA 03/20/2025 2:15 PM EDT Office Visit Adult Medicine [address] [phone] Pavithra Correa PA Renal cell carcinoma of right kidney (CMS/HCC V24, CMS/HCC V28) (Primary Dx); Tubular adenoma; Bowel wall thickening; Pancreatic lesion; Calculus of gallbladder without cholecystitis without obstruction; Liver lesion; Adenoma of left adrenal gland; Elevated ferritin; Elevated vitamin B12 level 03/17/2025 Results Follow-Up [address] [phone] Pavithra Correa PA 03/10/2025 10:26 AM EDT - 03/10/2025 11:59 PM EDT Hospital Encounter Radiology Department - [address] [phone] Chronic fatigue; Liver lesion; Renal cyst, right; Enlarged prostate; Adrenal nodule (CMS/HCC V24); Bowel wall thickening Discharge Disposition: Home or Self Care 02/13/2025 Telephone Adult Medicine [address] [phone] Dorcas Willis MA from Last 3 Months Immunizations Immunization Administration [...] Date Site/Laterality Comments CARPAL TUNNEL RELEASE PROCEDURE: [place] NEUROPLASTY &/TRANSPOS MEDIAN NRV CARPAL TUNNE COLONOSCOPY [...] your loved ones. For example, child care teacher or elderly care for an older [...] Info) Description 06/05/2025 12:00 PM EST Appointment [facility] [address] [place] [phone] Kurt Harper MD [address] [address] 09/19/2025 8:45 AM EDT Office Visit Adult Medicine [address] [phone] Miguel Pisano PA [address] [place] [phone] Health Maintenance Due Date Last Done [...] on patient's age to complete this topic Goals Goal Patient Goal Type Associated Problems Recent Progress Patient-Stated? Author Autogenerat ed Goal Care Plan Autogenerated Problem No Phil Mcmahan Procedures Procedure Name Priority Date/Time Associated Diagnosis Comments FERRITIN Routine 03/20/2025 2:54 PM EDT Elevated ferritin VITAMIN B12 Routine 03/20/2025 2:54 PM EDT Elevated vitamin B12 level MR ABDOMEN WO AND W CONTRAST Routine 03/10/2025 12:13 PM EDT Chronic fatigue Liver lesion Renal cyst, right Enlarged prostate Adrenal nodule (CMS/HCC V24) Bowel wall thickening HM ANNUAL BMP BLOOD TEST Routine 11/29/2022 LIPID PANEL Routine 11/29/2022 COLONOSCOPY Routine 10/29/2020 ABDOMINAL AORTIC ANEURYSM SCRREN Routine 02/05/2015 HEPATITIS C SCREENING Routine 07/04/2014 from Last 3 Months or Most Recently Relevant to Health Maintenance Results * Ferritin (03/20/2025 2:54 PM EDT) [facility] [address] Ferritin 335 26 - 388 ng/mL LAB CHEMISTRY METHOD 03/20/2025 5:46 PM EDT [facility] Blood Venous blood specimen / Unknown Venipuncture / Unknown 03/20/2025 2:54 PM EDT 03/20/2025 2:54 PM EDT Pavithra CUMMINGS LAB BLOOD ORDERABLES Final Resul t Performing Organization Address City/[facility]/ZIP Co de Phone Number [facility] [address] [place] [address], [place] [phone] * Vitamin B12 (03/20/2025 2:54 PM EDT) [facility] [address] Vitamin B-12 851 250 - 900 pcg/mL LAB CHEMISTRY METHOD 03/20/2025 5:46 PM EDT [facility] Blood Venous blood specimen / Unknown Venipuncture / Unknown 03/20/2025 2:54 PM EDT 03/20/2025 2:54 PM EDT Pavithra CUMMINGS LAB BLOOD ORDERABLES Final Resul t Performing Organization Address City/[facility]/ZIP Co de Phone Number [facility] [address] [place] [address], [place] [phone] * MR Abdomen wo and w Contrast [...] Signed Date: 03/13/2025 09:06 ET Workstation ID: [id number] Transcribed By: Self Edit Transcribed Date: 03/11/2025 [...] Signed Date: 03/13/2025 09:06 ET Workstation ID: [id number] Transcribed By: Self Edit Transcribed Date: 03/11/2025 15:19 ET Paivthra CUMMINGS IMG MRI PROCEDURES Final Result * Annual BMP Blood Test (11/29/2022) Pathologist [facility] Annual BMP Blood Test abstracted Historical Provider HEALTH MAINTENANCE Final Result * (ABNORMAL) Lipid panel (11/29/2022) [facility] [address] LDL/HDL Ratio 3 0 - 4 Triglycerides 145 0 - 150 mg/dL Cholesterol 89 0 - 200 mg/dL HDL 35(A) >=40 mg/dL LDL Cholesterol 25 0 - 100 mg/dL Blood Venous blood specimen / Unknown Historical Provider LAB BLOOD ORDERABLES Mini l Result * Colonoscopy (10/29/2020) Colonoscopy abstract [facility] Anatomical Region Laterality Modality Other Historical Provider HEALTH MAINTENANCE Final Result * Abdominal Aortic Aneurysm Screen (02/05/2015) Abdominal Aortic Aneurysm (AAA) Screening abstracted Anatomical Region Laterality Modality Other Historical Provider HEALTH MAINTENANCE Final Result * Hepatitis C Screening (07/04/2014) Hepatitis C Screening abstracted Historical Provider HEALTH MAINTENANCE Final Result from Last 3 Months or Most Recently Relevant to Health Maintenance Additional Health Concerns Active Problems Noted Date Diagnosed Date Autogenerated Problem 04/18/2025 Insurance [place] - [place]IC[place] Care Teams Script Artist Relationship Specialty Start Date End Date Miguel Pisano PA [address] [place] [address] PCP - General Internal Medicine 08/26/20
[2025-05-13 08:58] VITALS: BP 97/53; PULSE 72; RESP 16; O2SAT 95
== END 2025-05-13 09:04 | disposition home or self-care (01) ==
LOC: HO.PMC 08:33
PROVIDERS: Visit Provider Nurse Practitioner Family
DX: M54.41 Lumbago with sciatica, right side (principal); M54.42 Lumbago with sciatica, left side; G89.29 Other chronic pain; M51.369 Other intervertebral disc degeneration, lumbar region without mention of lumbar back pain or lower extremity pain; M54.16 Radiculopathy, lumbar region; M47.27 Other spondylosis with radiculopathy, lumbosacral region
CPT/HCPCS: 99213; G2211

== ENCOUNTER → 2025-05-13 08:33 | Outpatient (BNVA) | payer MEDICARE, SELFPAY | PROVIDERS: Visit Provider Nurse Practitioner Family | DX: G89.29 Other chronic pain (principal); M51.16 Intervertebral disc disorders with radiculopathy, lumbar region; M47.27 Other spondylosis with radiculopathy, lumbosacral region | CPT/HCPCS: 99212 ==